=== PATIENT | male | born 1960 | race Two or more races ===

== ENCOUNTER 2017-02-08 18:10 | Emergency (ER) | payer SELFPAY ==
[2017-02-08 18:16] VITALS: BP 132/97; PULSE 82; TEMP 97.9; BMI 23.1
[2017-02-08] MEDS ORDERED: SODIUM CHLORIDE 1,000 ML IV STA (19:44)
[2017-02-08] MEDS ORDERED: FAMOTIDINE 20 MG/50 ML IVPB 50 ML IVPB ONE ×2 (19:44→20:17)
[2017-02-08] MEDS ORDERED: MAG HYDROX/AL HYDROX/SIMETH 30 ML UNIT-DOSE CUP PO ONE (19:46)
--- NOTE | 2017-02-08 19:52 | PDOC ---
Attending Attestation - Resident Resident Name: SonidoMina serna - ED Attending Attestation I have performed the following: I have examined & evaluated the patient, The case was reviewed & discussed with the resident, I agree w/resident's findings & plan, Exceptions are as noted - HPI HPI: 02/09/17 19:22 Pt c/o epigastric pain for several weeks. Pt states he has not had any relief with the current medication that he has currently been prescribed. H/o non- hodgkins lymphomas - Physicial Exam PE: 02/08/17 20:25 *Physical Exam General Appearance: Yes: Appropriately Dressed. No: Apparent Distress, Intoxicated HEENT: positive: EOMI, ANNA, Normal ENT Inspection, Normal Voice, TMs Normal, Pharynx Normal. negative: Pale Conjunctivae, Photophobia, Scleral Icterus (R), Scleral Icterus (L) Neck: positive: Trachea midline, Normal Thyroid, Supple. negative: Tender, Rigid, Carotid bruit, Stridor, Lymphadenopathy (R), Lymphadenopathy (L), Thyromegaly Respiratory/Chest: positive: Lungs Clear, Normal Breath Sounds. negative: Chest Tender, Respiratory Distress, Accessory Muscle Use, Labored Respiration, RES, Crackles, Rales, Rhonchi, Stridor, Wheezing, Dullness Cardiovascular: positive: Regular Rhythm, Regular Rate, S1, S2. negative: Edema , JVD, Murmur, Bradycardia, Tachycardia Vascular Pulses: Dorsalis-Pedis (R): 2+, Doralis-Pedis (L): 2+ Gastrointestinal/Abdominal: positive: Normal Bowel Sounds, Flat, Soft. negative : Tender, Organomegaly, Pulsatile Mass, Increased Bowel Sounds, Decreased BS, Distended, Guarding, Rebound, Hernia, Hepatomegaly, Spleenomegaly Lymphatic: negative: Adenopathy, Tenderness Musculoskeletal: positive: Normal Inspection. negative: CVA Tenderness, Decreased Range of Motion Extremity: positive: Normal Capillary Refill, Normal Inspection, Normal Range of Motion, Pelvis Stable. negative: Tender, Pedal Edema, Swelling, Erythema Integumentary: positive: Normal Color, Dry, Warm. 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 negative: EOM Palsy, Facial Droop, Sensory Deficit - Medical Decision Making 02/09/17 00:09 Pt and family would rather follow up with their pcp and Hem/Onc doc as out pt. Pt is stable. Pt afebrile. Will discharge Discharge Disposition - Diagnosis Abdominal pain Qualifiers: Abdominal location: epigastric Qualified Code(s): R10.13 - Epigastric pain - Discharge Dispostion Disposition: HOME Condition at time of disposition: Stable Admit: No - Prescriptions Prescriptions: Oxycodone HCl/Acetaminophen [Percocet 5-325 mg Tablet] 1 - 2 tab PO Q6H #20 tablet MDD 4 - Referrals Referrals: Bj Torres MD [Primary Care Provider] - - Patient Instructions Printed Discharge Instructions: DI for Abdominal Pain-Adult, Non-Hodgkin Lymphoma -- Child - Post Discharge Activity
[2017-02-08] MEDS ORDERED: MAG HYDROX/AL HYDROX/SIMETH 30 ML UNIT-DOSE CUP ONE (20:17)
--- NOTE | 2017-02-08 20:20 | PDOC ---
History of Present Illness - General Chief Complaint: Pain Stated Complaint: ABDOMINAL PAIN Time Seen by Provider: 02/08/17 19:30 History Source: Patient Exam Limitations: No Limitations - History of Present Illness Initial Comments: 02/08/17 20:13 Patient is a 56M with history of gastritis and DM (on metformin) here today complaining upper abdominal pain. The pain started 3 weeks ago and is radiating to the back. His primary care physician has tried protonix, omeprazole and tylenol, but he has had no relief for his symptoms. Because the pain didn't get better, he came into the emergency department today. He denies nausea, vomiting , fevers and chills. He denies drinking, smoking and other drugs. The pain is made worse with eating. Last bowel movement was this morning. He reports that when he eats he feels like something gets stuck and burps. Past History - Past Medical History Allergies/Adverse Reactions: Allergies Allergy/AdvReac Type Severity Reaction Status Date / Time No Known Allergies Allergy Verified 02/08/17 18:16 Home Medications: Ambulatory Orders Pantoprazole Sodium [Protonix -] 40 mg PO DAILY 02/08/17 Cancer: Yes (NONHODGEKINS LYMPHOMA) GI Disorders: Yes (GASTRITIS) - Psycho/Social/Smoking Cessation Hx Suicidal Ideation: No Smoking History: Never smoked Information on smoking cessation initiated: No Review of Systems - Review of Systems Constitutional: No: Chills, Diaphoresis, Fever, Weakness HEENTM: No: Eye Pain, Blurred Vision Respiratory: No: Cough, Shortness of Breath Cardiac (ROS): No: Chest Pain, Edema, Palpitations ABD/GI: No: Constipated, Diarrhea, Nausea, Vomiting : No: Burning, Dysuria Musculoskeletal: No: Muscle Pain, Muscle Weakness Integumentary: Yes: Pruritus, Rash Neurological: No: Headache, Tingling *Physical Exam - Vital Signs Last Vital Signs Temp Pulse Resp BP Pulse Ox 97.9 F 82 18 132/97 100 02/08/17 18:12 02/08/17 18:12 02/08/17 18:12 02/08/17 18:12 02/08/17 18:12 - Physical Exam Comments: 02/08/17 20:17 Gen: Well appearing, comfortable, well nourished CV: Regular rate and rhythm, no murmurs rubs or gallops Skin: Back has large, scaling rash. Abdomen: Maculopapular rash on abdomen, normal bowel sounds, nontender to palpation, no peritoneal signs Lungs: Clear to auscultation bilaterally, normal work of breathing Ext: 2+ pulses in both lower extremities, no edema HEENT: atraumatic normocephalic Neuro: Alert, oriented, no focal deficits ED Treatment Course - LABORATORY CBC & Chemistry Diagram: 02/08/17 20:00 02/08/17 20:00 - RADIOLOGY Radiology Studies Ordered: Category Date Time Status ABDOMEN & PELVIS CT WITH CONTR [CT] Stat CT Scan 02/08/17 19:47 Ordered Medical Decision Making - Medical Decision Making 02/08/17 20:20 56M with history of gastritis here today complaining of upper abdominal pain. Vital signs stable. Differential diagnosis includes, but is not limited to: gastritis, pancreatitis, and gastroparesis. Will send out labs, UA, and do CT. Maalox and IV pepcid given to help control possible gastritis. *DC/Admit/Observation/Transfer Diagnosis at time of Disposition: Abdominal pain Qualifiers: Abdominal location: epigastric Qualified Code(s): R10.13 - Epigastric pain - Attestations Physician Attestion: 02/08/17 22:27 I, Dr. Mina Brush, attest that this document has been prepared under my direction and personally reviewed by me in its entirety. I further attest, that it accurately reflects all work, treatment, procedures and medical decision -making performed by me.
[2017-02-08 20:21] LABS: BASOPHIL 0.7 % (0-2.0); EOSINOPHIL 2.5 % (0-4.5); MCH 28.3 pg (25.7-33.7); MCHC 33.1 g/dl (32.0-35.9); MEAN CELL VOLUME 85.4 fl (80-96); NEUTROPHILS 68.2 % (42.8-82.8); PLATELET COUNT 243 K/MM3 (134-434); RDW 14.1 % (11.9-15.9)
[2017-02-08 20:22] LABS: URINE APPEARANCE CLEAR; URINE BILIRUBIN NEGATIVE (NEGATIVE); URINE BLOOD 1+ (NEGATIVE); URINE COLOR YELLOW; URINE GLUCOSE (UA) NEGATIVE (NEGATIVE); URINE KETONE NEGATIVE (NEGATIVE); URINE LEUK ESTERASE NEGATIVE (NEGATIVE); URINE NITRITE NEGATIVE (NEGATIVE); URINE PROTEIN NEGATIVE (NEGATIVE); URINE UROBILINOGEN NEGATIVE mg/dL (0.2-1.0)
[2017-02-08 20:40] LABS: URINE MUCUS RARE; URINE RBC 1 /hpf (0-3)
[2017-02-08 21:20] LABS: ALBUMIN 3.6 g/dl (3.4-5.0); ANION GAP 9 (8-16); BILIRUBIN,TOTAL 0.5 mg/dL (0.2-1.0); CALCIUM 8.7 mg/dL (8.5-10.1); CO2 28 mmol/L (21-32); CREATININE 1.1 mg/dL (0.7-1.3); GLUCOSE,RANDOM 130 mg/dL (74-106); SGOT/AST 19 U/L (15-37); SGPT/ALT 18 U/L (12-78); TOT PROT 7.8 g/dl (6.4-8.2)
[2017-02-08 21:21] LABS: ALK PHOS 106 U/L (45-117)
[2017-02-08] MEDS ORDERED: HYDROmorphone HCL CARPU-JECT 1 MG/1 ML DISP.SYRIN IVPUSH ONE (21:35)
[2017-02-08] MEDS ORDERED: ONDANSETRON 4 MG/2 ML VIAL IVPUSH ONE (21:35)
[2017-02-08] MEDS ORDERED: HYDROmorphone HCL CARPU-JECT 1 MG/1 ML DISP.SYRIN ONE (22:13)
[2017-02-08] MEDS ORDERED: ONDANSETRON 4 MG/2 ML VIAL ONE (22:13)
--- NOTE | 2017-02-08 23:58 | HP ---
CHIEF COMPLAINT: PCP: HISTORY OF PRESENT ILLNESS: ER course was notable for: (1) (2) (3) Recent Travel: PAST MEDICAL HISTORY: PAST SURGICAL HISTORY: Social History: Smoking: Alcohol: Drugs: Family History: Allergies No Known Allergies Allergy (Verified 02/08/17 18:16) HOME MEDICATIONS: Home Medications Medication Instructions Recorded Pantoprazole Sodium [Protonix -] 40 mg PO DAILY 02/08/17 REVIEW OF SYSTEMS CONSTITUTIONAL: Absent: fever, chills, diaphoresis, generalized weakness, malaise, loss of appetite, weight change HEENT: Absent: rhinorrhea, nasal congestion, throat pain, throat swelling, difficulty swallowing, mouth swelling, ear pain, eye pain, visual changes CARDIOVASCULAR: Absent: chest pain, syncope, palpitations, irregular heart rate, lightheadedness , peripheral edema RESPIRATORY: Absent: cough, shortness of breath, dyspnea with exertion, orthopnea, wheezing, stridor, hemoptysis GASTROINTESTINAL: Absent: abdominal pain, abdominal distension, nausea, vomiting, diarrhea, constipation, melena, hematochezia GENITOURINARY: Absent: dysuria, frequency, urgency, hesitancy, hematuria, flank pain, genital pain MUSCULOSKELETAL: Absent: myalgia, arthralgia, joint swelling, back pain, neck pain SKIN: Absent: rash, itching, pallor HEMATOLOGIC/IMMUNOLOGIC: Absent: easy bleeding, easy bruising, lymphadenopathy, frequent infections ENDOCRINE: Absent: unexplained weight gain, unexplained weight loss, heat intolerance, cold intolerance NEUROLOGIC: Absent: headache, focal weakness or paresthesias, dizziness, unsteady gait, seizure, mental status changes, bladder or bowel incontinence PSYCHIATRIC: Absent: anxiety, depression, suicidal or homicidal ideation, hallucinations. PHYSICAL EXAMINATION Vital Signs - 24 hr 02/08/17 18:12 Temperature 97.9 F Pulse Rate 82 Respiratory 18 Rate Blood Pressure 132/97 O2 Sat by Pulse 100 Oximetry (%) GENERAL: Awake, alert, and fully oriented, in no acute distress. HEAD: Normal with no signs of trauma. EYES: Pupils equal, round and reactive to light, extraocular movements intact, sclera anicteric, conjunctiva clear. No lid lag. EARS, NOSE, THROAT: Ears normal, nares patent, oropharynx clear without exudates. Moist mucous membranes. NECK: Normal range of motion, supple without lymphadenopathy, JVD, or masses. LUNGS: Breath sounds equal, clear to auscultation bilaterally. No wheezes, and no crackles. No accessory muscle use. HEART: Regular rate and rhythm, normal S1 and S2 without murmur, rub or gallop. ABDOMEN: Soft, nontender, not distended, normoactive bowel sounds, no guarding, no rebound, no masses. No hepatomegaly or splenomegaly. MUSCULOSKELETAL: Normal range of motion at all joints. No bony deformities or tenderness. No CVA tenderness. UPPER EXTREMITIES: 2+ pulses, warm, well-perfused. No cyanosis. No clubbing. No peripheral edema. LOWER EXTREMITIES: 2+ pulses, warm, well-perfused. No calf tenderness. No peripheral edema. NEUROLOGICAL: Cranial nerves II-XII intact. Normal speech. Normal gait. PSYCHIATRIC: Cooperative. Good eye contact. Appropriate mood and affect. SKIN: Warm, dry, normal turgor, no rashes or lesions noted, normal capillary refill. Laboratory Results - last 24 hr 02/08/17 02/08/17 02/08/17 20:00 20:00 20:00 WBC 6.0 RBC 4.57 Hgb 12.9 Hct 39.0 MCV 85.4 MCH 28.3 MCHC 33.1 RDW 14.1 Plt Count 243 MPV 8.0 Neutrophils % 68.2 Lymphocytes % 20.3 Monocytes % 8.3 Eosinophils % 2.5 Basophils % 0.7 Sodium 136 Potassium 4.0 Chloride 99 Carbon Dioxide 28 Anion Gap 9 BUN 13 Creatinine 1.1 Creat Clearance w eGFR > 60 Random Glucose 130 H Calcium 8.7 Total Bilirubin 0.5 AST 19 ALT 18 Alkaline Phosphatase 106 Total Protein 7.8 Albumin 3.6 Lipase 483 H Urine Color Yellow Urine Appearance Clear Urine pH 6.0 Ur Specific [place] 1.020 Urine Protein Negative Urine Glucose (UA) Negative Urine Ketones Negative Urine Blood 1+ H Urine Nitrite Negative Urine Bilirubin Negative Urine Urobilinogen Negative Ur Leukocyte Esterase Negative Urine RBC 1 Urine WBC None Ur Epithelial Cells Rare Urine Mucus Rare ASSESSMENT/PLAN:
[2017-02-09] MEDS ORDERED: OXYCODONE/APAP 5/325MG COMBO TABLET PO ONE (00:08)
[2017-02-09] MEDS ORDERED: OXYCODONE/APAP 5/325MG COMBO TABLET ONE (00:16)
--- NOTE | 2017-02-09 12:47 | EKG ---
Test Reason : Blood Pressure : / mmHG Vent. Rate : 068 BPM Atrial Rate : 068 BPM P-R Int : 158 ms QRS Dur : 084 ms QT Int : 376 ms P-R-T Axes : 041 015 044 degrees QTc Int : 399 ms NORMAL SINUS RHYTHM NORMAL ECG NO PREVIOUS ECGS AVAILABLE Confirmed by JONG PAGE, HONG ([id number]) on 02/09/2017 12:46:52 PM Referred By: Confirmed By:HONG SUNSHINE MD
== END 2017-02-09 00:26 | disposition home or self-care (01) ==
LOC: JER 18:10 → JERBED 23:44 → UNDOADMIN 23:44 → JER 02-09 00:26
PROC: 3E033GC Introduction of Other Therapeutic Substance into Peripheral Vein, Percutaneous Approach (ICD-10-PCS; principal; 2017-02-08)
PROC: 3E033GC Introduction of Other Therapeutic Substance into Peripheral Vein, Percutaneous Approach (ICD-10-PCS; 2017-02-08)
PROC: 3E033NZ Introduction of Analgesics, Hypnotics, Sedatives into Peripheral Vein, Percutaneous Approach (ICD-10-PCS; 2017-02-08)
DX: K29.70 Gastritis, unspecified, without bleeding (principal); E11.9 Type 2 diabetes mellitus without complications; Z79.84 Long term (current) use of oral hypoglycemic drugs; Z85.72 Personal history of non-Hodgkin lymphomas
CPT/HCPCS: 36415; 74177-TC; 80053; 81003; 81015; 83615; 83690; 85025; 93005; 93010; 99283-25

== ENCOUNTER 2017-02-12 15:50 | Inpatient (IN) | payer OTHER ==
[2017-02-12] MEDS ORDERED: HYDROmorphone HCL CARPU-JECT 1 MG/1 ML DISP.SYRIN IVPUSH ONE (17:36)
--- NOTE | 2017-02-12 17:41 | PDOC ---
History of Present Illness - General Chief Complaint: Pain Stated Complaint: ABD PAIN Time Seen by Provider: 02/12/17 16:51 History Source: Patient, Family Exam Limitations: No Limitations - History of Present Illness Initial Comments: This is a 56 yo male with h/o non Hodgkin's lymphoma (in remission since 2003) and NIDDM (on metformin) who presents with one month of worsening abdominal pain. It is 8/10, sharp, diffuse, radiating to the back and spine, and worsens with eating. He was prescribed Percocet for this pain, which has been helping, and he had his last dose at about 2:30 pm. He notes recent decreased appetite and decreased PO intake, weight loss, and constipation. He denies any fever, chills, nausea, vomiting, diarrhea, dizziness, headache, vision changes, night sweats, numbness, tingling, or focal weakness. He was seen here in the ED on 02/08 and found to have diffuse peritoneal lymphadenitis on abdominal CT. He also had LD of 312 and lipase of 485, and was offered admission but opted to follow up with oncology as outpatient instead. He and his sister followed up with his primary doctor, Brian Adams, this morning and explain that they were told to come in for admission to the hospital for rapid oncology consultation, lymph node biopsy, and treatment. The patient's oncologist is Dr. Salvador, and Felix Davis is also on his team. Past History - Past Medical History Allergies/Adverse Reactions: Allergies Allergy/AdvReac Type Severity Reaction Status Date / Time No Known Allergies Allergy Verified 02/12/17 15:54 Home Medications: Ambulatory Orders Pantoprazole Sodium [Protonix -] 40 mg PO DAILY 02/08/17 Oxycodone HCl/Acetaminophen [Percocet 5-325 mg Tablet] 1 - 2 tab PO Q6H #20 tablet MDD 4 02/09/17 Metformin HCl [Metformin HCl ER] 500 mg PO DAILY 02/12/17 Cancer: Yes (NONHODGEKINS LYMPHOMA) GI Disorders: Yes (GASTRITIS) - Psycho/Social/Smoking Cessation Hx Anxiety: No Suicidal Ideation: No Smoking History: Never smoked Hx Alcohol Use: No Drug/Substance Use Hx: No Substance Use Type: None Review of Systems - Review of Systems Able to Perform ROS?: Yes Constitutional: Yes: Loss of Appetite, Unintentional Wgt. Loss. No: Chills, Fever, Night Sweats HEENTM: No: Nose Congestion, Throat Pain Respiratory: No: Cough, Shortness of Breath Cardiac (ROS): No: Chest Pain, Palpitations ABD/GI: Yes: Constipated, Other (abdominal pain). No: Diarrhea, Nausea, Vomiting : No: Burning, Dysuria Musculoskeletal: Yes: Back Pain. No: Neck Pain Integumentary: No: Bruising, Rash Neurological: No: Headache, Numbness, Tingling, Weakness, Dizziness Endocrine: Yes: Unexplained Weight Loss. No: Unexplained Weight Gain *Physical Exam - Vital Signs Last Vital Signs Temp Pulse Resp BP Pulse Ox 99.0 F 100 H 20 139/93 97 02/12/17 15:51 02/12/17 15:51 02/12/17 15:51 02/12/17 15:51 02/12/17 15:51 - Physical Exam General Appearance: Yes: Nourished, Mild Distress, Other (pleasant male appears a bit older than stated age, with dry skin on face and body stated to be chronic ) HEENT: positive: EOMI, Normal Voice, Hearing Grossly Normal. negative: Scleral Icterus (R), Scleral Icterus (L), Nasal Congestion Neck: positive: Trachea midline, Supple. negative: Tender, Rigid Respiratory/Chest: positive: Lungs Clear, Normal Breath Sounds. negative: Respiratory Distress, Crackles, Rhonchi, Stridor, Wheezing Cardiovascular: positive: Regular Rhythm, Regular Rate, JVD (mild). negative: Edema, Murmur Gastrointestinal/Abdominal: positive: Normal Bowel Sounds, Tender (minimally diffusely tender to palpation), Soft. negative: Organomegaly, Pulsatile Mass, Distended, Guarding, Rebound, Hernia, Mass Musculoskeletal: positive: Normal Inspection. negative: Decreased Range of Motion, Vertebral Tenderness Extremity: positive: Normal Capillary Refill, Normal Inspection, Normal Range of Motion. negative: Tender, Cyanosis, Swelling Integumentary: positive: Normal Color, Dry, Warm. 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 ED visit on 02/08/[address] abdomen showing intraabdominal lymphadenitis concerning for recurrence of NHL. Was going to be admitted for expedited management on 02/08 but Pt opted to try outpatient management with Onc. The quickest oncology appointment available was 02/28/17, so Pt saw his PCP Dr. Torres this AM. Dr. Torres recommended coming to the ED and admission with consultations with oncology and GI. Spoke with Dr. Torres who confirmed plan. He wants Dr. Salvador to consult for Oncology, Dr. Verdin to consult for GI. Meanwhile pain is controlled with Dilaudid, as this worked well during visit on 02/08/17. [facility] patient to Dr. Bobo. *DC/Admit/Observation/Transfer Diagnosis at time of Disposition: Lymphadenitis, mesenteric, acute Abdominal pain Qualifiers: Abdominal location: generalized Qualified Code(s): R10.84 - Generalized abdominal pain Lymphoma Qualifiers: Lymphoma type: non-Hodgkin Non-Hodgkin lymphoma type: unspecified type Lymphoma site: unspecified region Qualified Code(s): C85.90 - Non-Hodgkin lymphoma, unspecified, unspecified site - Discharge Dispostion Condition at time of disposition: Guarded Admit: Yes - Referrals Referrals: Bj Torres MD [Primary Care Provider] - - Attestations Physician Attestion: I, Dr. Shazia Dickinson, attest that this document has been prepared under my direction and personally reviewed by me in its entirety. I further attest, that it accurately reflects all work, treatment, procedures and medical decision -making performed by me.
[2017-02-12] MEDS ORDERED: HYDROmorphone HCL CARPU-JECT 1 MG/1 ML DISP.SYRIN ONE (17:45)
--- NOTE | 2017-02-12 18:38 | PDOC ---
Attending Attestation - Resident Resident Name: Shazia Dickinson - ED Attending Attestation I have performed the following: I have examined & evaluated the patient, The case was reviewed & discussed with the resident, I agree w/resident's findings & plan, Exceptions are as noted - HPI HPI: 02/12/17 18:37 Agree with the resident's HPI as documented in the electronic medical record. - Physicial Exam PE: 02/12/17 18:37 02/12/17 19:24 Agree with the resident's physical examination as documented in the electronic medical record. - Medical Decision Making 02/12/17 19:24 48-year-old male with history of non-Hodgkin's lymphoma who presents to the emergency department for the second time in one week with complaints of abdominal pain; he was worked up last week with a CT scan that shows diffuse lymphadenopathy in the abdomen. The plan is to admit the patient for pain management and further workup including biopsy. This has been discussed with his primary care physician.
--- NOTE | 2017-02-12 21:49 | HP ---
CHIEF COMPLAINT: PCP: HISTORY OF PRESENT ILLNESS: ER course was notable for: (1) (2) (3) Recent Travel: PAST MEDICAL HISTORY: PAST SURGICAL HISTORY: Social History: Smoking: Alcohol: Drugs: Family History: Allergies No Known Allergies Allergy (Verified 02/12/17 15:54) HOME MEDICATIONS: Home Medications Medication Instructions Recorded Pantoprazole Sodium [Protonix -] 40 mg PO DAILY 02/08/17 Oxycodone HCl/Acetaminophen 1 - 2 tab PO Q6H #20 tablet MDD 4 02/09/17 [Percocet 5-325 mg Tablet] Metformin HCl [Metformin HCl ER] 500 mg PO DAILY 02/12/17 REVIEW OF SYSTEMS CONSTITUTIONAL: Absent: fever, chills, diaphoresis, generalized weakness, malaise, loss of appetite, weight change HEENT: Absent: rhinorrhea, nasal congestion, throat pain, throat swelling, difficulty swallowing, mouth swelling, ear pain, eye pain, visual changes CARDIOVASCULAR: Absent: chest pain, syncope, palpitations, irregular heart rate, lightheadedness , peripheral edema RESPIRATORY: Absent: cough, shortness of breath, dyspnea with exertion, orthopnea, wheezing, stridor, hemoptysis GASTROINTESTINAL: Absent: abdominal pain, abdominal distension, nausea, vomiting, diarrhea, constipation, melena, hematochezia GENITOURINARY: Absent: dysuria, frequency, urgency, hesitancy, hematuria, flank pain, genital pain MUSCULOSKELETAL: Absent: myalgia, arthralgia, joint swelling, back pain, neck pain SKIN: Absent: rash, itching, pallor HEMATOLOGIC/IMMUNOLOGIC: Absent: easy bleeding, easy bruising, lymphadenopathy, frequent infections ENDOCRINE: Absent: unexplained weight gain, unexplained weight loss, heat intolerance, cold intolerance NEUROLOGIC: Absent: headache, focal weakness or paresthesias, dizziness, unsteady gait, seizure, mental status changes, bladder or bowel incontinence PSYCHIATRIC: Absent: anxiety, depression, suicidal or homicidal ideation, hallucinations. PHYSICAL EXAMINATION Vital Signs - 24 hr 02/12/17 15:51 Temperature 99.0 F Pulse Rate 100 H Respiratory 20 Rate Blood Pressure 139/93 O2 Sat by Pulse 97 Oximetry (%) GENERAL: Awake, alert, and fully oriented, in no acute distress. HEAD: Normal with no signs of trauma. EYES: Pupils equal, round and reactive to light, extraocular movements intact, sclera anicteric, conjunctiva clear. No lid lag. EARS, NOSE, THROAT: Ears normal, nares patent, oropharynx clear without exudates. Moist mucous membranes. NECK: Normal range of motion, supple without lymphadenopathy, JVD, or masses. LUNGS: Breath sounds equal, clear to auscultation bilaterally. No wheezes, and no crackles. No accessory muscle use. HEART: Regular rate and rhythm, normal S1 and S2 without murmur, rub or gallop. ABDOMEN: Soft, nontender, not distended, normoactive bowel sounds, no guarding, no rebound, no masses. No hepatomegaly or splenomegaly. MUSCULOSKELETAL: Normal range of motion at all joints. No bony deformities or tenderness. No CVA tenderness. UPPER EXTREMITIES: 2+ pulses, warm, well-perfused. No cyanosis. No clubbing. No peripheral edema. LOWER EXTREMITIES: 2+ pulses, warm, well-perfused. No calf tenderness. No peripheral edema. NEUROLOGICAL: Cranial nerves II-XII intact. Normal speech. Normal gait. PSYCHIATRIC: Cooperative. Good eye contact. Appropriate mood and affect. SKIN: Warm, dry, normal turgor, no rashes or lesions noted, normal capillary refill. ASSESSMENT/PLAN:
[2017-02-12] MEDS ORDERED: PANTOPRAZOLE 40 MG TABLET (FP) ONE (22:13)
[2017-02-12] MEDS: PANTOPRAZOLE 40 MG TABLET (FP) PO SCH (22:16)
--- NOTE | 2017-02-12 22:21 | HP ---
CHIEF COMPLAINT: abdominal pain PCP: Dr. Brian Adams HISTORY OF PRESENT ILLNESS: 56 y/o M with PMH nonhodgkin's lymphoma (treated with Cyclophosphamide, Vincristine in remission since 2003), NIDDM on metformin, gastritis (on Ranitidine, Omeprazole, Prevacid), who presented to the ED with diffuse abdominal pain. The pain is 8/10, sharp, diffuse, with radiation to the back and spine. The pain began several weeks ago and the patient has been in and out of Dr. Torres's office and was given percocet, protonix, and metformin). Recently, the patient was admitted here on 02/08 for similar complaint. A CT abdomen at that time revealed diffuse peritoneal lymphadenitis. Labs at that time were significant for LD of 312, Lipase of 485. The patient was given an appointment to see the oncologist in several weeks, but the patient's pain has been uncontrolled. So the patient went to the PCPs office who recommended coming to the ED to be admitted and start the oncology workup as inpatient. ER course was notable for: (1)Labs not drawn b/c pt just had labs drawn recently (2)Dilaudid (3) Recent Travel: From [place] 4 months ago PAST MEDICAL HISTORY: nonhodgkin's lymphoma (treated with Cyclophosphamide, Vincristine in remission since 2003), NIDDM on metformin, gastritis (on Ranitidine, Omeprazole, Prevacid) PAST SURGICAL HISTORY: Social History: Smoking:Denies Alcohol:Denies Drugs: Denies Family History: Allergies No Known Allergies Allergy (Verified 02/12/17 15:54) HOME MEDICATIONS: Home Medications Medication Instructions Recorded Pantoprazole Sodium [Protonix -] 40 mg PO DAILY 02/08/17 Oxycodone HCl/Acetaminophen 1 - 2 tab PO Q6H #20 tablet MDD 4 02/09/17 [Percocet 5-325 mg Tablet] Metformin HCl [Metformin HCl ER] 500 mg PO DAILY 02/12/17 REVIEW OF SYSTEMS CONSTITUTIONAL: Absent: fever, chills, diaphoresis, generalized weakness, malaise, loss of appetite, weight change HEENT: Absent: rhinorrhea, nasal congestion, throat pain, throat swelling, difficulty swallowing, mouth swelling, ear pain, eye pain, visual changes CARDIOVASCULAR: Absent: chest pain, syncope, palpitations, irregular heart rate, lightheadedness , peripheral edema RESPIRATORY: Absent: cough, shortness of breath, dyspnea with exertion, orthopnea, wheezing, stridor, hemoptysis GASTROINTESTINAL: Absent: abdominal pain, abdominal distension, nausea, vomiting, diarrhea, constipation, melena, hematochezia GENITOURINARY: Absent: dysuria, frequency, urgency, hesitancy, hematuria, flank pain, genital pain MUSCULOSKELETAL: Absent: myalgia, arthralgia, joint swelling, back pain, neck pain SKIN: lifelong diffuse scaly rash, diffuse erythematous patches for several years Absent: , itching, pallor HEMATOLOGIC/IMMUNOLOGIC: Absent: easy bleeding, easy bruising, lymphadenopathy, frequent infections ENDOCRINE: Absent: unexplained weight gain, unexplained weight loss, heat intolerance, cold intolerance NEUROLOGIC: Absent: headache, focal weakness or paresthesias, dizziness, unsteady gait, seizure, mental status changes, bladder or bowel incontinence PSYCHIATRIC: Absent: anxiety, depression, suicidal or homicidal ideation, hallucinations. PHYSICAL EXAMINATION Vital Signs - 24 hr 02/12/17 15:51 Temperature 99.0 F Pulse Rate 100 H Respiratory 20 Rate Blood Pressure 139/93 O2 Sat by Pulse 97 Oximetry (%) GENERAL: Awake, alert, and fully oriented, in no acute distress. HEAD: Normal with no signs of trauma. EYES: Pupils equal, round and reactive to light, extraocular movements intact, sclera anicteric, conjunctiva clear. No lid lag. EARS, NOSE, THROAT: Ears normal, nares patent, oropharynx clear without exudates. Moist mucous membranes. NECK: Normal range of motion, supple without lymphadenopathy, JVD, or masses. LUNGS: Breath sounds equal, clear to auscultation bilaterally. No wheezes, and no crackles. No accessory muscle use. HEART: Regular rate and rhythm, normal S1 and S2 without murmur, rub or gallop. ABDOMEN: Soft, nontender, not distended, normoactive bowel sounds, no guarding, no rebound, no masses. No hepatomegaly or splenomegaly. MUSCULOSKELETAL: Normal range of motion at all joints. No bony deformities or tenderness. No CVA tenderness. UPPER EXTREMITIES: 2+ pulses, warm, well-perfused. No cyanosis. No clubbing. No peripheral edema. LOWER EXTREMITIES: 2+ pulses, warm, well-perfused. No calf tenderness. No peripheral edema. NEUROLOGICAL: Cranial nerves II-XII intact. Normal speech. Normal gait. PSYCHIATRIC: Cooperative. Good eye contact. Appropriate mood and affect. SKIN: diffuse scaly rash, diffuse erythematous patches, Warm, dry, normal turgor , normal capillary refill. ASSESSMENT/PLAN: 56y/o M with PMHx PMH nonhodgkin's lymphoma (treated with Cyclophosphamide, Vincristine in remission since 2003), NIDDM on metformin, gastritis (on Ranitidine, Omeprazole, Prevacid), who presented to the ED with diffuse abdominal pain. Pt has recent CT abdomen showing diffuse peritoneal lymphadenitis. #Abdominal pain -likely 2/2 diffuse peritoneal lymphadenitis -Morphine 1mg Q4H -CBC, CMP, Lipase, UA #Gastritis -Protonix #DM -Novolog ISS #FEN -not on fluids -lytes wnl -diabetic diet #PPX -heparin SubQ -Protonix #Dispo -Admit to med/surg Please call [facility] to confirm home meds Pablito Joyner MD PGY-1 Visit type - Emergency Visit Emergency Visit: No - New Patient This patient is new to me today: No - Critical Care Critical Care patient: No
[2017-02-12] MEDS: INSULIN SLIDING SCALE (NOVOLOG) 1 VIAL SQ SCH (22:28)
[2017-02-12] MEDS ORDERED: HEPARIN NA (PORCINE) 5,000 UNITS/ML 1ML VIAL ONE (22:33)
[2017-02-12] MEDS: HEPARIN NA (PORCINE) 5,000 UNITS/ML 1ML VIAL SQ SCH (22:44)
[2017-02-12] MEDS ORDERED: morphine CARPU-JECT 4 MG/1 ML DISP.SYRIN ONE (23:00)
[2017-02-12] MEDS: morphine CARPU-JECT 4 MG/1 ML DISP.SYRIN IVPUSH PRN (23:05)
--- NOTE | 2017-02-12 23:12 | PN ---
Teaching Attending Note Name of Resident: Mohini Guerrier ATTENDING PHYSICIAN STATEMENT I saw and evaluated the patient. I reviewed the resident's note and discussed the case with the resident. I agree with the resident's findings and plan as documented. 56 yrs old man with h/o T2DM, Non Hodgkin Lymphoma in remission since 2003, BIB family for evaluation of gradually worsening abdominal pain, with poor appetite and nausea for past 2 wks, patient visited ED on 02/08/2017b with similar complaint w/u shows elevated Lipase, CT abd shows extensive abdominal Lymphadenopathy, patient decided to go home to F/U with his Oncologist as out patient, abdominal pain worsened so today visited his PMD office and PMD recommended hospitalization for evaluation. Impression: 1.Abdominal Lymphadenopathy: known case of Non Hodgkin Lymphoma in remission since 2003, F/U Oncology recommendations. 2.Abdominal pain: most likely due to recurrence of Lymphoma, need oncology evaluation, meantime pain management, Morphine with PRN Zofran for nausea, Diet as tolerates, Oncology evaluation. 3. Acute Pancreatitis: Secondary to extensive mets F/U Serial Lipase, frequent abd exam, GI consult Diet as tolerates 4. T2DM: F/U ACCU check q AC and bed luca with correction dose Novolog F/U HBA1C , Hold Metformin. F/U CBC, CMP, Lipase Rest cont current management. Plan discussed with the Resident and Public Speaking Coach.
[2017-02-12 23:50] LABS: BASOPHIL 0.6 % (0-2.0); EOSINOPHIL 1.8 % (0-4.5); MCH 28.5 pg (25.7-33.7); MCHC 33.5 g/dl (32.0-35.9); MEAN CELL VOLUME 84.9 fl (80-96); PLATELET COUNT 210 K/MM3 (134-434); RDW 13.8 % (11.9-15.9); WHITE BLOOD COUNT 5.7 K/mm3 (4.0-10.0)
[2017-02-13 00:17] LABS: ALBUMIN 3.4 g/dl (3.4-5.0); ALK PHOS 108 U/L (45-117); ANION GAP 11 (8-16); BILIRUBIN,TOTAL 0.6 mg/dL (0.2-1.0); CALCIUM 8.4 mg/dL (8.5-10.1); CO2 30 mmol/L (21-32); CREATININE 1.1 mg/dL (0.7-1.3); GLUCOSE,RANDOM 127 mg/dL (74-106); SGOT/AST 23 U/L (15-37); SGPT/ALT 19 U/L (12-78); TOT PROT 7.2 g/dl (6.4-8.2)
[2017-02-13 00:39] VITALS: BMI 22.4
[2017-02-13] MEDS: morphine CARPU-JECT 4 MG/1 ML DISP.SYRIN IVPUSH PRN ×2 (03:01→10:25)
[2017-02-13] MEDS ORDERED: morphine CARPU-JECT 2 MG/1 ML DISP.SYRIN IVPUSH ONE (04:29)
[2017-02-13] MEDS: INSULIN SLIDING SCALE (NOVOLOG) 1 VIAL SQ SCH ×3 (07:01→18:08)
[2017-02-13] MEDS ORDERED: INSULIN (NOVOLOG) ASPART 100 UNITS/ML 10ML VIAL ONE (07:04)
[2017-02-13 07:27] LABS: BASOPHIL 0.3 % (0-2.0); EOSINOPHIL 0.4 % (0-4.5); MCH 28.6 pg (25.7-33.7); MCHC 33.9 g/dl (32.0-35.9); MEAN CELL VOLUME 84.3 fl (80-96); MEAN PLT VOLUME 7.6 fl (7.5-11.1); NEUTROPHILS 74.4 % (42.8-82.8); PLATELET COUNT 193 K/MM3 (134-434); RDW 13.8 % (11.9-15.9); WHITE BLOOD COUNT 5.6 K/mm3 (4.0-10.0)
[2017-02-13] MEDS: SODIUM CHLORIDE 1,000 ML IV SCH (08:00)
[2017-02-13 08:02] LABS: ALBUMIN 3.2 g/dl (3.4-5.0); ANION GAP 8 (8-16); CALCIUM 8.6 mg/dL (8.5-10.1); CO2 32 mmol/L (21-32); CREATININE 0.9 mg/dL (0.7-1.3); GLUCOSE,RANDOM 180 mg/dL (74-106); SGOT/AST 23 U/L (15-37); SGPT/ALT 19 U/L (12-78)
[2017-02-13 08:05] LABS: ALK PHOS 105 U/L (45-117); BILIRUBIN,TOTAL 0.8 mg/dL (0.2-1.0); TOT PROT 7.1 g/dl (6.4-8.2)
--- NOTE | 2017-02-13 10:20 | CONSULT ---
Consult Consult Specialty:: Oncology Reason for Consultation:: New lymphadenopathy in a patient with previous NHL - History of Present Illness Chief Complaint: ABDOMINAL PAIN History of Present Illness: is a 56 y/o M with PMHx of NHL treated in 2003. Patient presented with abdominal pain and CT scan of the abdomen/pelvis performed on 02/08/17 showed new intra-abdominal and retroperitoneal LND . Per history obtained from patient and his family (sister and son) at bedside, he was diagnosed with NHL in 2003 in [facility]. He received 6 cycles of CHOP chemotherapy and his cancer was noted to be in remission. They have medical records stating the same. For the past month, patient has been having severe abdominal pain radiating to the back which he describes as an 8-10/10 pain. He is unable to sleep at night due to gnawing pain. He denies recent weight loss, palpable LND, nightsweats etc. He went to his PCP as an outpatient and was given pain meds but nothing has helped his pain so far. - History Source History Provided By: Patient, Family Member Limitations to Obtaining History: No Limitations - Alcohol/Substance Use Hx Alcohol Use: No - Smoking History Smoking history: Never smoked Home Medications - Allergies Allergies/Adverse Reactions: Allergies Allergy/AdvReac Type Severity Reaction Status Date / Time No Known Allergies Allergy Verified 02/12/17 15:54 - Home Medications Home Medications: Ambulatory Orders Pantoprazole Sodium [Protonix -] 40 mg PO DAILY 02/08/17 Oxycodone HCl/Acetaminophen [Percocet 5-325 mg Tablet] 1 - 2 tab PO Q6H #20 tablet MDD 4 02/09/17 Metformin HCl [Metformin HCl ER] 500 mg PO DAILY 02/12/17 Review of Systems - Review of Systems Gastrointestinal: reports: Abdominal Pain Physical Exam Vital Signs: Vital Signs Temperature 98.8 F 02/13/17 04:00 Pulse Rate 68 02/13/17 04:00 Respiratory Rate 20 02/13/17 04:00 Blood Pressure 131/85 02/13/17 04:00 O2 Sat by Pulse Oximetry (%) 98 02/12/17 23:45 Labs: CBC, BMP 02/13/17 06:00 02/13/17 06:00 Assessment/Plan A/P : 56 Y/O male with Hx of NHL treated previously with CHOP in 2003 and new intra- abdominal/retroperitoneal LND 1.Lymphoma work-up -findings are concerning for recurrence NHL, recommend IR guided lymph node biopsy to establish diagnosis -recommend obtaining CT chest with and without contrast and bone marrow biopsy during the week for complete staging -please check Hep BSAg, HepBcab, Hep C ab, HIV Ag study -recheck LDH, uric acid 2.Pain control -patient is having very poor control of pain with only oral pain meds and says even after taking his meds pain is 8/10 -recommend starting fentanyl patch 25 mcg/72 hrs and oxycodone 10 mg q8 h for breakthrough pain -good bowel regimen to prevent constipation- miralax/lactulose Will continue to follow.
[2017-02-13] MEDS: PANTOPRAZOLE 40 MG TABLET (FP) PO SCH (10:24)
[2017-02-13] MEDS: HEPARIN NA (PORCINE) 5,000 UNITS/ML 1ML VIAL SQ SCH ×3 (10:24→20:59)
[2017-02-13] MEDS ORDERED: FENTANYL PATCH WASTE TD PRN (12:42)
[2017-02-13] MEDS ORDERED: fentaNYL 25mcg/hr PATCH.TD72 TD SCH (12:45)
--- NOTE | 2017-02-13 13:06 | PN ---
Progress Note (short form) - Note Progress Note: Subjective: no fever .has pain in abd . constipation Objective: Vital Signs: Last Vital Signs Temp Pulse Resp BP Pulse Ox 98.9 F 79 20 127/73 98 02/13/17 10:00 02/13/17 10:00 02/13/17 10:00 02/13/17 10:00 02/12/17 23:45 Laboratory Results - last 24 hr 02/12/17 02/12/17 02/12/17 22:05 22:05 22:25 WBC 5.7 RBC 4.54 Hgb 12.9 Hct 38.5 MCV 84.9 MCH 28.5 MCHC 33.5 RDW 13.8 Plt Count 210 MPV 8.0 Neutrophils % 70.0 Lymphocytes % 17.0 Monocytes % 10.6 H Eosinophils % 1.8 Basophils % 0.6 PTT (Actin FS) Sodium 137 Potassium 4.1 Chloride 96 L Carbon Dioxide 30 Anion Gap 11 BUN 10 D Creatinine 1.1 Creat Clearance w eGFR > 60 POC Glucometer [phone] Random Glucose 127 H Calcium 8.4 L Total Bilirubin 0.6 AST 23 D ALT 19 Alkaline Phosphatase 108 Total Protein 7.2 Albumin 3.4 Lipase 02/13/17 02/13/17 02/13/17 06:00 06:00 06:00 WBC 5.6 RBC 4.61 Hgb 13.2 Hct 38.8 MCV 84.3 MCH 28.6 MCHC 33.9 RDW 13.8 Plt Count 193 MPV 7.6 Neutrophils % 74.4 Lymphocytes % 14.4 Monocytes % 10.5 H Eosinophils % 0.4 Basophils % 0.3 PTT (Actin FS) 35.1 H Sodium 134 L Potassium 4.4 Chloride 94 L Carbon Dioxide 32 Anion Gap 8 BUN 12 Creatinine 0.9 Creat Clearance w eGFR > 60 POC Glucometer Random Glucose 180 H D Calcium 8.6 Total Bilirubin 0.8 D AST 23 ALT 19 Alkaline Phosphatase 105 Total Protein 7.1 Albumin 3.2 L Lipase 195 02/13/17 02/13/17 06:59 11:30 WBC RBC Hgb Hct MCV MCH MCHC RDW Plt Count MPV Neutrophils % Lymphocytes % Monocytes % Eosinophils % Basophils % PTT (Actin FS) Sodium Potassium Chloride Carbon Dioxide Anion Gap BUN Creatinine Creat Clearance w eGFR POC Glucometer 161 132 Random Glucose Calcium Total Bilirubin AST ALT Alkaline Phosphatase Total Protein Albumin Lipase Physical Exam: NAD , AAOx3 CV : RRR Lung s: CATB ext : No edema or erythema Abd :soft, NT, ND , NL BS no LAP in neck , groins or axillae. Skin: dry scaly skin with erythematous patches. bandar on trunk Assessment/Plan: 56 y/o man with h/o NHL, s/p chemo in 2003 , now in remision and MM II , who rpesneted with abd pain . 1- Abd pain , likely due to LAP in abd which could be due recurrent lymphoma - appreciate heme consult . - add fentanyl patch and oxycodone 2- Possible recurrence of NHL. - consult lIR for Bx . - CT of chest - hep B serology - HIV test ( consent obtained ) 3- DM II: on a combination pill at home ( Metformin /? ) . daughter will confirm tomorrow - SSi here 4- COnstipation : miralax , colace a, and supp DVT px. daughter to confirm DM tomorrow Visit type - Emergency Visit Emergency Visit: Yes ED Registration Date: 02/12/17 Care time: The patient presented to the Emergency Department on the above date and was hospitalized for further evaluation of their emergent condition. - New Patient This patient is new to me today: Yes Date on this admission: 02/13/17 - Critical Care Critical Care patient: No
[2017-02-13] MEDS ORDERED: BISACODYL 10 MG SUPP.RECT RC ONE (13:15)
[2017-02-13] MEDS: oxyCODONE HCL 5 MG TABLET PO PRN (13:30)
[2017-02-13] MEDS: DOCUSATE SODIUM 100 MG CAPSULE (FP) PO PRN (13:34)
[2017-02-13 15:51] LABS: HIV 1 & 2 AB NEGATIVE; HIV 1 AGp24 NEGATIVE
[2017-02-13] MEDS: POLYETHYLENE GLYCOL 3350 119 GM BTL PO SCH (16:20)
--- NOTE | 2017-02-13 17:32 | EKG ---
Test Reason : Blood Pressure : / mmHG Vent. Rate : 072 BPM Atrial Rate : 072 BPM P-R Int : 158 ms QRS Dur : 084 ms QT Int : 362 ms P-R-T Axes : 036 019 059 degrees QTc Int : 396 ms NORMAL SINUS RHYTHM NORMAL ECG WHEN COMPARED WITH ECG OF 08-FEB-2017 19:45, NO SIGNIFICANT CHANGE WAS FOUND Confirmed by LOUISA PHILLIPS MD ([id number]) on 02/13/2017 5:31:46 PM Referred By: Confirmed By:LOUISA PHILLIPS MD
[2017-02-13] MEDS ORDERED: ONDANSETRON 4 MG/2 ML VIAL IVPUSH ONE (20:53)
[2017-02-14] MEDS ORDERED: ONDANSETRON 4 MG/2 ML VIAL IVPUSH ONE (01:25)
[2017-02-14] MEDS ORDERED: METOCLOPRAMIDE HCL INJECTION 10 MG/2 ML VIAL IVPUSH ONE ×2 (01:27→06:00)
[2017-02-14] MEDS: SODIUM CHLORIDE 1,000 ML IV SCH ×3 (01:37→22:22)
[2017-02-14] MEDS: HEPARIN NA (PORCINE) 5,000 UNITS/ML 1ML VIAL SQ SCH ×3 (05:18→22:12)
[2017-02-14] MEDS: INSULIN SLIDING SCALE (NOVOLOG) 1 VIAL SQ SCH ×3 (06:09→17:11)
[2017-02-14 08:08] LABS: BASOPHIL 0.4 % (0-2.0); EOSINOPHIL 0.2 % (0-4.5); MCH 28.9 pg (25.7-33.7); MCHC 34.2 g/dl (32.0-35.9); MEAN CELL VOLUME 84.6 fl (80-96); MEAN PLT VOLUME 7.3 fl (7.5-11.1); NEUTROPHILS 74.8 % (42.8-82.8); PLATELET COUNT 199 K/MM3 (134-434); RDW 13.9 % (11.9-15.9); WHITE BLOOD COUNT 5.3 K/mm3 (4.0-10.0)
[2017-02-14 08:21] LABS: INR 1.2 (0.82-1.09); PROTHROMBIN TIME (PATIENT) 13.3 SEC (9.98-11.88)
[2017-02-14 08:24] LABS: ACTIVATED PTT 32.4 SECONDS (26.9-34.4)
[2017-02-14 08:35] LABS: AMYLASE 45 U/L (25-115); ANION GAP 9 (8-16); CALCIUM 8.5 mg/dL (8.5-10.1); CO2 31 mmol/L (21-32); CREATININE 0.8 mg/dL (0.7-1.3); GLUCOSE,RANDOM 162 mg/dL (74-106)
[2017-02-14] MEDS: POLYETHYLENE GLYCOL 3350 119 GM BTL PO SCH (09:10)
[2017-02-14] MEDS: PANTOPRAZOLE 40 MG TABLET (FP) PO SCH (09:13)
[2017-02-14] MEDS ORDERED: POLYETHYLENE GLYCOL 3350 119 GM BTL PO SCH (10:00)
[2017-02-14] MEDS: oxyCODONE HCL 5 MG TABLET PO PRN ×3 (12:30→22:21)
--- NOTE | 2017-02-14 17:27 | PN ---
Progress Note (short form) - Note Progress Note: Patient seen and examined. Sister ( a RN) is at his bedside, who was our machine driller. His main complain is a constipation today. continues to have poor appetite Is awaiting Lymph node biopsy. Pain much better controlled. O/E In NAD Could not appreciate any LAD in the neck/axillary region Abdomen: No organomegaly noted Cor: RRR Lungs:CTA b/l LE: No swelling noted. Last Vital Signs Temp Pulse Resp BP Pulse Ox 98.7 F 81 18 167/100 95 02/14/17 14:58 02/14/17 16:08 02/14/17 16:08 02/14/17 16:08 02/14/17 16:08 CBC, BMP 02/14/17 06:40 02/14/17 06:40 Current Medications Generic Name Dose Route Start Last Admin Trade Name Freq PRN Reason Stop Dose Admin Docusate Sodium 100 mg 02/13/17 12:42 02/13/17 13:34 Colace - PO 100 mg BID PRN Administration CONSTIPATION Fentanyl 1 patch 02/13/17 12:45 02/13/17 13:32 Duragesic 25mcg Patch - TD 02/20/17 12:43 1 patch Q72H [facility] Administration Heparin Sodium (Porcine) 5,000 unit 02/13/17 14:00 02/14/17 14:10 Heparin - SQ Not Given TID [facility] Sodium Chloride 1,000 mls @ 83 mls/hr 02/13/17 07:30 02/14/17 09:14 Normal Saline - IV Not Given ASDIR [facility] Insulin Aspart 1 vial 02/13/17 16:30 02/14/17 17:11 Novolog Vial Sliding Scale - SQ Not Given TIDAC [facility] Protocol Miscellaneous 1 each 02/13/17 12:42 Duragesic Patch Waste TD PRN PRN PAIN Oxycodone HCl 10 mg 02/13/17 12:43 02/14/17 17:07 Roxicodone - PO 10 mg Q4H PRN Administration PAIN Pantoprazole Sodium 40 mg 02/12/17 22:00 02/14/17 09:13 Protonix - PO 40 mg DAILY [facility] Administration Polyethylene Glycol 17 gm 02/13/17 16:15 02/14/17 09:10 Miralax (For Daily Use) - PO Not Given DAILY [facility] 56 Y/O male with Hx of NHL treated previously with CHOP in 2003 and new intra- abdominal/retroperitoneal LND Likely a recurrence of his past Lymphoma or a new lymphoma, very less likely other malignancies. -IR guided biopsy today -Hep panel pending -HCV ab added -No evidence of Tumor lysis -Order TTE ( pre-chemo) -CBC tomorrow -CT c/a/p reviewed -BM biopsy as an OP once diagnosis confirmed. -If pain is well controlled and no post biopsy complications ,once echo done , he could be discharged from Oncology stand point, with close out patient follow- up in our office. -the above is explained to the sister at bedside. will follow through the course.
--- NOTE | 2017-02-14 17:50 | PN ---
Physical Exam: SUBJECTIVE: Patient seen and examined at bedside. Pt has no complaints at this time. Pt had nausea and vomiting overnight. Pt denies larson, cp, sob, abd pain, dysuria, diarrhea, fever, chills. OBJECTIVE: Vital Signs Period Temp Pulse Resp BP Sys/Hutchison Pulse Ox Last 24 Hr 98.3 F-99.6 F 69-84 11-20 112-167/53-100 95-96 GENERAL: The patient is awake, alert, and fully oriented, in no acute distress. HEAD: Normal with no signs of trauma. EYES: PERRL, extraocular movements intact, sclera anicteric, conjunctiva clear. No ptosis. ENT: Ears normal, nares patent, oropharynx clear without exudates, moist mucous membranes. NECK: Trachea midline, full range of motion, supple. LUNGS: Breath sounds equal, clear to auscultation bilaterally, no wheezes, no crackles, no accessory muscle use. HEART: Regular rate and rhythm, normal S1, S2 without murmur, rub or gallop. ABDOMEN: Soft, nontender, nondistended, normoactive bowel sounds, no guarding, no rebound, no hepatosplenomegaly, no masses. EXTREMITIES: 2+ pulses, warm, well-perfused, no edema. NEUROLOGICAL: Cranial nerves II through XII grossly intact. Normal speech, gait not observed. PSYCH: Normal mood, normal affect. SKIN: Diffuse scaly rash and diffuse erythematous rash noted. Warm, dry, normal turgor no lesions noted Laboratory Results - last 24 hr 02/13/17 02/14/17 02/14/17 17:50 05:56 06:40 WBC RBC Hgb Hct MCV MCH MCHC RDW Plt Count MPV Neutrophils % Lymphocytes % Monocytes % Eosinophils % Basophils % INR 1.20 H PTT (Actin FS) 32.4 Sodium Potassium Chloride Carbon Dioxide Anion Gap BUN Creatinine POC Glucometer 194 133 Random Glucose Calcium Total Amylase 02/14/17 02/14/17 02/14/17 06:40 06:40 11:50 WBC 5.3 RBC 4.38 Hgb 12.7 Hct 37.1 MCV 84.6 MCH 28.9 MCHC 34.2 RDW 13.9 Plt Count 199 MPV 7.3 L Neutrophils % 74.8 Lymphocytes % 11.9 Monocytes % 12.7 H Eosinophils % 0.2 Basophils % 0.4 INR PTT (Actin FS) Sodium 136 Potassium 4.3 Chloride 96 L Carbon Dioxide 31 Anion Gap 9 BUN 16 D Creatinine 0.8 POC Glucometer 123 Random Glucose 162 H Calcium 8.5 Total Amylase 45 02/14/17 16:36 WBC RBC Hgb Hct MCV MCH MCHC RDW Plt Count MPV Neutrophils % Lymphocytes % Monocytes % Eosinophils % Basophils % INR PTT (Actin FS) Sodium Potassium Chloride Carbon Dioxide Anion Gap BUN Creatinine POC Glucometer 101 Random Glucose Calcium Total Amylase Active Medications Generic Name Dose Route Start Last Admin Trade Name Freq PRN Reason Stop Dose Admin Docusate Sodium 100 mg 02/13/17 12:42 02/13/17 13:34 Colace - PO 100 mg BID PRN Administration CONSTIPATION Fentanyl 1 patch 02/13/17 12:45 02/13/17 13:32 Duragesic 25mcg Patch - TD 02/20/17 12:43 1 patch Q72H [facility] Administration Heparin Sodium (Porcine) 5,000 unit 02/13/17 14:00 02/14/17 14:10 Heparin - SQ Not Given TID [facility] Sodium Chloride 1,000 mls @ 83 mls/hr 02/13/17 07:30 02/14/17 09:14 Normal Saline - IV Not Given ASDIR [facility] Insulin Aspart 1 vial 02/13/17 16:30 02/14/17 17:11 Novolog Vial Sliding Scale - SQ Not Given TIDAC [facility] Protocol Miscellaneous 1 each 02/13/17 12:42 Duragesic Patch Waste TD PRN PRN PAIN Oxycodone HCl 10 mg 02/13/17 12:43 02/14/17 17:07 Roxicodone - PO 10 mg Q4H PRN Administration PAIN Pantoprazole Sodium 40 mg 02/12/17 22:00 02/14/17 09:13 Protonix - PO 40 mg DAILY [facility] Administration Polyethylene Glycol 17 gm 02/13/17 16:15 02/14/17 09:10 Miralax (For Daily Use) - PO Not Given DAILY [facility] ASSESSMENT/PLAN: 56y/o M with PMHx PMH nonhodgkin's lymphoma (treated with Cyclophosphamide, Vincristine in remission since 2003), NIDDM on metformin, gastritis (on Ranitidine, Omeprazole, Prevacid), who presented to the ED with diffuse abdominal pain. Pt has recent CT abdomen showing diffuse peritoneal lymphadenitis. #Abdominal pain -likely 2/2 diffuse peritoneal lymphadenitis -Fentanyl 25mcg patch -labs WNL except INR 1.2 #Gastritis -Protonix #DM -Novolog ISS #FEN -not on fluids -lytes wnl -diabetic diet #PPX -heparin SubQ -Protonix #Dispo -Admit to med/surg Home meds confirmed Pablito Joyner MD PGY-1 Visit type - Emergency Visit Emergency Visit: Yes ED Registration Date: 02/12/17 Care time: The patient presented to the Emergency Department on the above date and was hospitalized for further evaluation of their emergent condition. - New Patient This patient is new to me today: No - Critical Care Critical Care patient: No - Discharge Referral Referred to [facility] Med P.C.: No
--- NOTE | 2017-02-14 17:56 | PN ---
Teaching Attending Note Name of Resident: Pablito Joyner ATTENDING PHYSICIAN STATEMENT I saw and evaluated the patient. I reviewed the resident's note and discussed the case with the resident. I agree with the resident's findings and plan as documented. SUBJECTIVE: no fever or chills, abd pain is well controlled today. has N/V . OBJECTIVE: NAD , AAOx3 CV : RRR Lung s: CATB ext : No edema or erythema Abd :soft, NT, ND , NL BS Skin: dry scaly skin with erythematous patches. bandar on trunk Assessment/Plan: 56 y/o man with h/o NHL, s/p chemo in 2003 , now in remision and MM II , who rpesneted with abd pain . 1- Abd pain , likely due to LAP in abd which is likely due recurrent lymphoma - cont fentanyl patch and oxycodone 2- Possible recurrence of NHL. - Lymph node Bx performed today - CT of chest with no mediastinal LAP. axillary lymph nodes noted - echo prechemo - BM BX and treatment as outpt 3- DM II: - Cont SSI - will confirm home meds 4- COnstipation : miralax , colace , did not work. add a dose of lactulose POssible dc tomorrow
[2017-02-14] MEDS ORDERED: LACTULOSE 20 GM/30 ML UDC (FOR ORAL USE ONLY) PO ONE (18:01)
[2017-02-14] MEDS ORDERED: METOCLOPRAMIDE HCL INJECTION 10 MG/2 ML VIAL IVPB PRN (18:37)
[2017-02-14] MEDS ORDERED: ONDANSETRON 4 MG/2 ML VIAL IVPB PRN (18:38)
--- NOTE | 2017-02-14 18:50 | CON.GI ---
Consult Consult Specialty:: GI Referred by:: Dr Bonilla Reason for Consultation:: N/V/abdominal pain - History of Present Illness Chief Complaint: Abdominal pain, Nausea History of Present Illness: 56 M with h/o DM, NHL diagnosed and treated in [place] 2003- with full CHOP regimen after which time he went into remission until this past month when he began developing abdominal discomfort. Over the course of the month the pain increased leading him to come to the ER where a CT of the abd/pelvis was done demonstrating marked diffuse lymphadenopathy suggesting recurrence of NHL. He went for lymph node biopsy today-results pending. I am called to address N/V - History Source History Provided By: Family Member (sister-a [employer] employee) Limitations to Obtaining History: No Limitations - Alcohol/Substance Use Hx Alcohol Use: No - Smoking History Smoking history: Never smoked Home Medications - Allergies Allergies/Adverse Reactions: Allergies Allergy/AdvReac Type Severity Reaction Status Date / Time No Known Allergies Allergy Verified 02/12/17 15:54 - Home Medications Home Medications: Ambulatory Orders Pantoprazole Sodium [Protonix -] 20 mg PO DAILY 02/08/17 Oxycodone HCl/Acetaminophen [Percocet 5-325 mg Tablet] 1 - 2 tab PO Q6H #20 tablet MDD 4 02/09/17 Metformin HCl [Metformin HCl ER] 500 mg PO DAILY 02/12/17 Ondansetron HCl [Zofran] 4 mg PO BID 02/14/17 Physical Exam-GI Vital Signs: Vital Signs Temperature 98.9 F 02/14/17 18:00 Pulse Rate 88 02/14/17 18:00 Respiratory Rate 20 02/14/17 18:00 Blood Pressure 157/96 02/14/17 18:00 O2 Sat by Pulse Oximetry (%) 95 02/14/17 16:08 Constitutional: Yes: Thin Cardiovascular: Yes: Regular Rate and Rhythm Respiratory: Yes: CTA Bilaterally Gastrointestinal Inspection: Yes: WNL ...Auscultate: Yes: Normoactive Bowel Sounds ...Palpate: Yes: Soft. No: Tenderness (Patient states he has deep diffuse pain but no tenderness) ...Percussion: Yes: Dullness Labs: CBC, BMP 02/14/17 06:40 02/14/17 06:40 INR, PTT INR 1.20 (0.82-1.09) H 02/14/17 06:40 Imaging - Results Cat Scan: Report Reviewed (diffuse abdominal adenopathy) Assessment/Plan Patient with likely recurrence of NHL, now with new escalating abdominal pain and N/V. He has no leukocytosis but no tenderness in the presence of pain Pain is likely secondary to Ca recurrence and is being managed effectively at this time with Fentanyl From GI POV there are 2 problems: 1-Narcotic induced constipation-Started Relistor 12 mg SQ daily which should help. Will start po meds when less nauseous. Can give enemas at this time but avoid stimulant laxatives (Dulcolax and senna) 2- Nausea-in part caused by narcotic meds. Would d/c meds other than fentanyl and prn dilaudid for breakthrough. Started scheduled reglan and zofran.
[2017-02-14] MEDS: Methylnaltrexone Bromide 12 MG/0.6 ML KIT SQ SCH (22:27)
[2017-02-15] MEDS: oxyCODONE HCL 5 MG TABLET PO PRN ×3 (02:16→10:35)
[2017-02-15 06:06] LABS: HEP B SURFACE AB Non Reactive (.)
[2017-02-15] MEDS: INSULIN SLIDING SCALE (NOVOLOG) 1 VIAL SQ SCH ×3 (06:14→17:53)
[2017-02-15] MEDS: HEPARIN NA (PORCINE) 5,000 UNITS/ML 1ML VIAL SQ SCH ×3 (06:14→21:46)
[2017-02-15 07:44] LABS: BASOPHIL 0.4 % (0-2.0); EOSINOPHIL 1.5 % (0-4.5); MCH 28.7 pg (25.7-33.7); MEAN CELL VOLUME 84.4 fl (80-96); MEAN PLT VOLUME 7.1 fl (7.5-11.1); NEUTROPHILS 66.8 % (42.8-82.8); PLATELET COUNT 210 K/MM3 (134-434); RDW 13.6 % (11.9-15.9); WHITE BLOOD COUNT 5.1 K/mm3 (4.0-10.0)
[2017-02-15 08:17] LABS: ALBUMIN 2.8 g/dl (3.4-5.0); ALK PHOS 89 U/L (45-117); ANION GAP 6 (8-16); BILIRUBIN,TOTAL 0.9 mg/dL (0.2-1.0); CALCIUM 8.1 mg/dL (8.5-10.1); CO2 32 mmol/L (21-32); CREATININE 0.9 mg/dL (0.7-1.3); GLUCOSE,RANDOM 121 mg/dL (74-106); SGOT/AST 21 U/L (15-37); SGPT/ALT 16 U/L (12-78); TOT PROT 6.5 g/dl (6.4-8.2)
[2017-02-15] MEDS ORDERED: PT OWN MED DRAWER 7, Y5N ONE (09:59)
[2017-02-15] MEDS: Methylnaltrexone Bromide 12 MG/0.6 ML KIT SQ SCH (10:35)
[2017-02-15] MEDS: PANTOPRAZOLE 40 MG TABLET (FP) PO SCH (10:35)
[2017-02-15] MEDS: SODIUM CHLORIDE 1,000 ML IV SCH (10:36)
--- NOTE | 2017-02-15 13:02 | PN ---
GI Progress Note Subjective: still with abdominal pain, poor appetite and insomnia, nause and vomiting improved - Objective Vital Signs: Vital Signs Temperature 98.9 F 02/15/17 10:00 Pulse Rate 85 02/15/17 10:00 Respiratory Rate 20 02/15/17 10:00 Blood Pressure 145/86 02/15/17 10:00 O2 Sat by Pulse Oximetry (%) 97 02/15/17 09:00 Constitutional: Well Nourished Eyes: Yes: Conjunctiva Clear, Occular Prosthesis HENT: Yes: Tonsillar Exudate Cardiovascular: Yes: Regular Rate and Rhythm Respiratory: Yes: CTA Bilaterally Gastrointestinal Inspection: No: Distention ...Palpate: Yes: Firm/Rigid, Guarding, Soft, Splenomegaly, Tenderness (--mild diffuse). No: Hepatomegaly, Mass, Pulsatile Mass Labs: CBC, BMP 02/15/17 06:00 02/15/17 06:00 INR, PTT INR 1.20 (0.82-1.09) H 02/14/17 06:40 Problem List - Problems (1) Abdominal pain Assessment/Plan: secondary to lymphoma of the abdomen R>maintain on Protonix 40mg daily, Reglan 5mg 30min ac Remeron 7.5 mg qhs Code(s): R10.9 - UNSPECIFIED ABDOMINAL PAIN Qualifiers: Abdominal location: generalized Qualified Code(s): R10.84 - Generalized abdominal pain
[2017-02-15] MEDS ORDERED: PANTOPRAZOLE 40 MG TABLET (FP) PO SCH (13:15)
[2017-02-15] MEDS: fentaNYL 50mcg/hr PATCH.TD72 TD SCH (15:05)
[2017-02-15] MEDS: POLYETHYLENE GLYCOL 3350 119 GM BTL PO SCH (16:42)
[2017-02-15] MEDS: METOCLOPRAMIDE HCL 10 MG TABLET (FP) PO SCH (16:42)
--- NOTE | 2017-02-15 18:05 | PN ---
Progress Note (short form) - Note Progress Note: Patient seen and examined. He is resting, but still with some pain, though improved. O/E In NAD Could not appreciate any LAD in the neck/axillary region Abdomen: No organomegaly noted Cor: RRR Lungs:CTA b/l LE: No swelling noted. Last Vital Signs Temp Pulse Resp BP Pulse Ox 100.1 F H 80 20 143/80 97 02/15/17 14:24 02/15/17 14:24 02/15/17 14:24 02/15/17 14:24 02/15/17 09:00 CBC, BMP 02/15/17 06:00 02/15/17 06:00 Current Medications Generic Name Dose Route Start Last Admin Trade Name Freq PRN Reason Stop Dose Admin Docusate Sodium 100 mg 02/13/17 12:42 02/13/17 13:34 Colace - PO 100 mg BID PRN Administration CONSTIPATION Fentanyl 1 patch 02/15/17 11:00 02/15/17 15:05 Duragesic 50mcg Patch - TD 02/22/17 10:48 1 patch Q72H YOKO Administration Heparin Sodium (Porcine) 5,000 unit 02/13/17 14:00 02/15/17 15:10 Heparin - SQ Not Given TID YOKO Sodium Chloride 1,000 mls @ 83 mls/hr 02/13/17 07:30 02/15/17 10:36 Normal Saline - IV 83 mls/hr ASDIR YOKO Administration Insulin Aspart 1 vial 02/13/17 16:30 02/15/17 17:53 Novolog Vial Sliding Scale - SQ 2 units TIDAC YOKO Administration Protocol Methylnaltrexone [place] 12 mg 02/14/17 18:45 02/15/17 10:35 Relistor - SQ 12 mg DAILY YOKO Administration Metoclopramide HCl 5 mg 02/15/17 16:30 02/15/17 16:42 Reglan - PO 5 mg TIDAC YOKO Administration Mirtazapine 7.5 mg 02/15/17 22:00 Remeron - PO HS YOKO Miscellaneous 1 each 02/15/17 10:48 Duragesic Patch Waste TD PRN PRN PAIN Ondansetron HCl 4 mg 02/14/17 18:38 Zofran Injection IVPB Q6H PRN NAUSEA Oxycodone HCl 10 mg 02/13/17 12:43 02/15/17 10:35 Roxicodone - PO 10 mg Q4H PRN Administration PAIN Pantoprazole Sodium 40 mg 02/12/17 22:00 02/15/17 10:35 Protonix - PO 40 mg DAILY YOKO Administration Polyethylene Glycol 17 gm 02/13/17 16:15 02/15/17 16:42 Miralax (For Daily Use) - PO 17 gm DAILY YOKO Administration 56 Y/O male with Hx of NHL treated previously with CHOP in 2003 and new intra- abdominal/retroperitoneal LND Likely a recurrence of his past Lymphoma or a new lymphoma, very less likely other malignancies. -will f.u biopsy results -once nausea/vomiting/pain/constipation improved could be discharged from Onc stand point.
--- NOTE | 2017-02-15 19:01 | PN ---
Teaching Attending Note Name of Resident: Pablito Joyner ATTENDING PHYSICIAN STATEMENT I saw and evaluated the patient. I reviewed the resident's note and discussed the case with the resident. I agree with the resident's findings and plan as documented. SUBJECTIVE: had a fever today. had severe pain in AM . better in Afternoon OBJECTIVE: NAD , AAOx3 CV : RRR Lungs: CATB ext : No edema or erythema Abd :soft, NT, ND , NL BS Skin: dry scaly skin with erythematous patches. bandar on trunk R flank with fluid filled vesicles ( 2 ) , no surrounding erythema or tenderness Assessment/Plan: 56 y/o man with h/o NHL, s/p chemo in 2003 , now in remision and MM II , who rpesneted with abd pain . 1- Abd pain , likely due to LAP in abd which is likely due recurrent lymphoma - increase fentanyl patch to 50 mcg /3 days . cont oxycodone 2- Possible recurrence of NHL. - Lymph node Bx performed yesterday - CT of chest with no mediastinal LAP. axillary lymph nodes noted - pre-chemo Echo , pending - BM BX and treatment as outpt 3- DM II: - Cont SSI while here 4- COnstipation : cont ralistor and other laxatives. N/V . imrpoved , cont current management POssible dc tomorrow
--- NOTE | 2017-02-15 20:03 | PN ---
Physical Exam: SUBJECTIVE: Patient seen and examined at bedside. Pt complains of abdominal pain. Pt denies larson, cp, sob, abd pain, dysuria, diarrhea, fever, chills. OBJECTIVE: Vital Signs Period Temp Pulse Resp BP Sys/Hutchison Pulse Ox Last 24 Hr 98.9 F-100.5 F 80-94 20-20 129-145/79-95 97-97 GENERAL: The patient is awake, alert, and fully oriented, in no acute distress. HEAD: Normal with no signs of trauma. EYES: PERRL, extraocular movements intact, sclera anicteric, conjunctiva clear. No ptosis. ENT: Ears normal, nares patent, oropharynx clear without exudates, moist mucous membranes. NECK: Trachea midline, full range of motion, supple. LUNGS: Breath sounds equal, clear to auscultation bilaterally, no wheezes, no crackles, no accessory muscle use. HEART: Regular rate and rhythm, normal S1, S2 without murmur, rub or gallop. ABDOMEN: Soft, nontender, nondistended, normoactive bowel sounds, no guarding, no rebound, no hepatosplenomegaly, no masses. EXTREMITIES: 2+ pulses, warm, well-perfused, no edema. NEUROLOGICAL: Cranial nerves II through XII grossly intact. Normal speech, gait not observed. PSYCH: Normal mood, normal affect. SKIN: Diffuse scaly rash (ichthiosis) and diffuse erythematous rash noted. Warm , dry, normal turgor no lesions noted Laboratory Results - last 24 hr 02/14/17 02/14/17 02/14/17 06:40 19:20 22:32 WBC RBC Hgb Hct MCV MCH MCHC RDW Plt Count MPV Neutrophils % Lymphocytes % Monocytes % Eosinophils % Basophils % Sodium Potassium Chloride Carbon Dioxide Anion Gap BUN Creatinine Creat Clearance w eGFR POC Glucometer 116 Random Glucose Lactic Acid 1.5 Calcium Total Bilirubin AST ALT Alkaline Phosphatase Total Protein Albumin Hep Bs Ab Concentration Non reactive Hep B Core Ab Interpret Negative 02/15/17 02/15/17 02/15/17 06:00 06:00 06:13 WBC 5.1 RBC 4.60 Hgb 13.2 Hct 38.9 MCV 84.4 MCH 28.7 MCHC 34.0 RDW 13.6 Plt Count 210 MPV 7.1 L Neutrophils % 66.8 Lymphocytes % 17.0 D Monocytes % 14.3 H Eosinophils % 1.5 D Basophils % 0.4 Sodium 133 L Potassium 4.2 Chloride 95 L Carbon Dioxide 32 Anion Gap 6 L BUN 17 Creatinine 0.9 Creat Clearance w eGFR > 60 POC Glucometer 122 Random Glucose 121 H D Lactic Acid Calcium 8.1 L Total Bilirubin 0.9 AST 21 ALT 16 Alkaline Phosphatase 89 Total Protein 6.5 Albumin 2.8 L Hep Bs Ab Concentration Hep B Core Ab Interpret 02/15/17 02/15/17 11:54 16:51 WBC RBC Hgb Hct MCV MCH MCHC RDW Plt Count MPV Neutrophils % Lymphocytes % Monocytes % Eosinophils % Basophils % Sodium Potassium Chloride Carbon Dioxide Anion Gap BUN Creatinine Creat Clearance w eGFR POC Glucometer 161 161 Random Glucose Lactic Acid Calcium Total Bilirubin AST ALT Alkaline Phosphatase Total Protein Albumin Hep Bs Ab Concentration Hep B Core Ab Interpret Active Medications Generic Name Dose Route Start Last Admin Trade Name Freq PRN Reason Stop Dose Admin Docusate Sodium 100 mg 02/13/17 12:42 02/13/17 13:34 Colace - PO 100 mg BID PRN Administration CONSTIPATION Fentanyl 1 patch 02/15/17 11:00 02/15/17 15:05 Duragesic 50mcg Patch - TD 02/22/17 10:48 1 patch Q72H YOKO Administration Heparin Sodium (Porcine) 5,000 unit 02/13/17 14:00 02/15/17 15:10 Heparin - SQ Not Given TID [facility] Insulin Aspart 1 vial 02/13/17 16:30 02/15/17 17:53 Novolog Vial Sliding Scale - SQ 2 units TIDAC YOKO Administration Protocol Methylnaltrexone [place] 12 mg 02/14/17 18:45 02/15/17 10:35 Relistor - SQ 12 mg DAILY YOKO Administration Metoclopramide HCl 5 mg 02/15/17 16:30 02/15/17 16:42 Reglan - PO 5 mg TIDAC YOKO Administration Mirtazapine 7.5 mg 02/15/17 22:00 Remeron - PO HS YOKO Miscellaneous 1 each 02/15/17 10:48 Duragesic Patch Waste TD PRN PRN PAIN Ondansetron HCl 4 mg 02/14/17 18:38 Zofran Injection IVPB Q6H PRN NAUSEA Oxycodone HCl 10 mg 02/13/17 12:43 02/15/17 10:35 Roxicodone - PO 10 mg Q4H PRN Administration PAIN Pantoprazole Sodium 40 mg 02/12/17 22:00 02/15/17 10:35 Protonix - PO 40 mg DAILY YOKO Administration Polyethylene Glycol 17 gm 02/13/17 16:15 02/15/17 16:42 Miralax (For Daily Use) - PO 17 gm DAILY YOKO Administration ASSESSMENT/PLAN: 56y/o M with PMHx PMH nonhodgkin's lymphoma (treated with Cyclophosphamide, Vincristine in remission since 2003), NIDDM on metformin, gastritis (on Ranitidine, Omeprazole, Prevacid), who presented to the ED with diffuse abdominal pain. Pt has recent CT abdomen showing diffuse peritoneal lymphadenitis. #Abdominal pain -likely 2/2 diffuse peritoneal lymphadenitis -Fentanyl increased to 50mcg patch -oxycodone #Peritoneal LAD -likely recurrence of NHL -LN Bx results pending -BM Bx results pending -CT chest showed no LAD. showed axillary LN -Echo pending #Gastritis -Protonix #DM -Novolog ISS #Constipation -laxitives #FEN -not on fluids -lytes wnl -diabetic diet #PPX -heparin SubQ -Protonix #Dispo -Admit to med/surg Pablito Joyner MD PGY-1 Visit type - Emergency Visit Emergency Visit: Yes ED Registration Date: 02/12/17 Care time: The patient presented to the Emergency Department on the above date and was hospitalized for further evaluation of their emergent condition. - New Patient This patient is new to me today: No - Critical Care Critical Care patient: No - Discharge Referral Referred to [facility] Med P.C.: No
[2017-02-15] MEDS: MIRTAZAPINE 15 MG TABLET (FP) PO SCH (21:46)
[2017-02-16] MEDS: INSULIN SLIDING SCALE (NOVOLOG) 1 VIAL SQ SCH ×3 (06:12→16:19)
[2017-02-16] MEDS: HEPARIN NA (PORCINE) 5,000 UNITS/ML 1ML VIAL SQ SCH ×3 (06:13→21:57)
[2017-02-16] MEDS: METOCLOPRAMIDE HCL 10 MG TABLET (FP) PO SCH ×3 (06:14→16:18)
[2017-02-16] MEDS: oxyCODONE HCL 5 MG TABLET PO PRN (06:40)
[2017-02-16 07:54] LABS: MCH 28.8 pg (25.7-33.7); MCHC 34.4 g/dl (32.0-35.9); MEAN CELL VOLUME 83.7 fl (80-96); MEAN PLT VOLUME 7.3 fl (7.5-11.1); PLATELET COUNT 229 K/MM3 (134-434); RDW 13.7 % (11.9-15.9); WHITE BLOOD COUNT 6.3 K/mm3 (4.0-10.0)
[2017-02-16 08:13] LABS: CALCIUM 8.2 mg/dL (8.5-10.1)
[2017-02-16 08:17] LABS: ANION GAP 8 (8-16); CO2 30 mmol/L (21-32); CREATININE 0.9 mg/dL (0.7-1.3); GLUCOSE,RANDOM 155 mg/dL (74-106)
[2017-02-16] MEDS: POLYETHYLENE GLYCOL 3350 119 GM BTL PO SCH (10:10)
[2017-02-16] MEDS: PANTOPRAZOLE 40 MG TABLET (FP) PO SCH (10:11)
[2017-02-16] MEDS: DOCUSATE SODIUM 100 MG CAPSULE (FP) PO PRN (10:11)
[2017-02-16] MEDS: Methylnaltrexone Bromide 12 MG/0.6 ML KIT SQ SCH (10:12)
[2017-02-16 12:33] LABS: ALBUMIN 2.7 g/dl (3.4-5.0); ALK PHOS 89 U/L (45-117); BILIRUBIN,TOTAL 0.7 mg/dL (0.2-1.0); SGOT/AST 21 U/L (15-37); SGPT/ALT 17 U/L (12-78); TOT PROT 6.5 g/dl (6.4-8.2)
--- NOTE | 2017-02-16 13:04 | PN ---
Physical Exam: SUBJECTIVE: Patient seen and examined at bedside. Pt complains of abdominal pain and has had low fever and mild tachycardia overnight. Pt denies larson, cp, sob , abd pain, dysuria, diarrhea, chills. OBJECTIVE: Vital Signs Period Temp Pulse Resp BP Sys/Hutchison Pulse Ox Last 24 Hr 99.9 F-100.5 F 80-123 18-20 115-159/62-92 97 GENERAL: The patient is awake, alert, and fully oriented, in no acute distress. HEAD: Normal with no signs of trauma. EYES: sclera anicteric, conjunctiva clear. No ptosis. ENT: oropharynx clear without exudates, moist mucous membranes. NECK: Trachea midline, full range of motion, supple. LUNGS: Breath sounds equal, clear to auscultation bilaterally, no wheezes, no crackles, no accessory muscle use. HEART: Regular rate and rhythm, normal S1, S2 without murmur, rub or gallop. ABDOMEN: Soft, nontender, nondistended, normoactive bowel sounds, no guarding, no rebound, no hepatosplenomegaly, no masses. EXTREMITIES: 2+ pulses, warm, well-perfused, no edema. NEUROLOGICAL: Cranial nerves II through XII grossly intact. Normal speech, gait not observed. PSYCH: Normal mood, normal affect. SKIN: Diffuse scaly rash (ichthiosis) and diffuse erythematous rash noted. Dime sized blisters on lower back. Likely 2/2 tape. Warm, dry, normal turgor. Laboratory Results - last 24 hr 02/15/17 02/15/17 02/16/17 06:00 16:51 05:35 WBC 6.3 RBC 4.48 Hgb 12.9 Hct 37.5 MCV 83.7 MCH 28.8 MCHC 34.4 RDW 13.7 Plt Count 229 MPV 7.3 L Sodium Potassium Chloride Carbon Dioxide Anion Gap BUN Creatinine Creat Clearance w eGFR POC Glucometer 161 Random Glucose Calcium Total Bilirubin AST ALT Alkaline Phosphatase Total Protein Albumin Hepatitis C Antibody <0.1 02/16/17 02/16/17 02/16/17 05:35 05:35 06:10 WBC RBC Hgb Hct MCV MCH MCHC RDW Plt Count MPV Sodium 132 L Cancelled Potassium 4.1 Cancelled Chloride 94 L Cancelled Carbon Dioxide 30 Cancelled Anion Gap 8 Cancelled BUN 13 D Cancelled Creatinine 0.9 Cancelled Creat Clearance w eGFR Cancelled POC Glucometer 173 Random Glucose 155 H D Cancelled Calcium 8.2 L Cancelled Total Bilirubin 0.7 D Cancelled AST 21 Cancelled ALT 17 Cancelled Alkaline Phosphatase 89 Cancelled Total Protein 6.5 Cancelled Albumin 2.7 L Cancelled Hepatitis C Antibody 02/16/17 10:54 WBC RBC Hgb Hct MCV MCH MCHC RDW Plt Count MPV Sodium Potassium Chloride Carbon Dioxide Anion Gap BUN Creatinine Creat Clearance w eGFR POC Glucometer 186 Random Glucose Calcium Total Bilirubin AST ALT Alkaline Phosphatase Total Protein Albumin Hepatitis C Antibody Active Medications Generic Name Dose Route Start Last Admin Trade Name Freq PRN Reason Stop Dose Admin Docusate Sodium 100 mg 02/13/17 12:42 02/16/17 10:11 Colace - PO 100 mg BID PRN Administration CONSTIPATION Fentanyl 1 patch 02/15/17 11:00 02/15/17 15:05 Duragesic 50mcg Patch - TD 02/22/17 10:48 1 patch Q72H YOKO Administration Heparin Sodium (Porcine) 5,000 unit 02/13/17 14:00 02/16/17 06:13 Heparin - SQ 5,000 unit TID YOKO Administration Insulin Aspart 1 vial 02/13/17 16:30 02/16/17 11:13 Novolog Vial Sliding Scale - SQ 2 units TIDAC YOKO Administration Protocol Methylnaltrexone [place] 12 mg 02/14/17 18:45 02/16/17 10:12 Relistor - SQ 12 mg DAILY YOKO Administration Metoclopramide HCl 5 mg 02/15/17 16:30 02/16/17 11:13 Reglan - PO 5 mg TIDAC YOKO Administration Mirtazapine 7.5 mg 02/15/17 22:00 02/15/17 21:46 Remeron - PO 7.5 mg HS YOKO Administration Miscellaneous 1 each 02/15/17 10:48 Duragesic Patch Waste TD PRN PRN PAIN Ondansetron HCl 4 mg 02/14/17 18:38 Zofran Injection IVPB Q6H PRN NAUSEA Oxycodone HCl 10 mg 02/13/17 12:43 02/16/17 06:40 Roxicodone - PO 10 mg Q4H PRN Administration PAIN Pantoprazole Sodium 40 mg 02/12/17 22:00 02/16/17 10:11 Protonix - PO 40 mg DAILY YOKO Administration Polyethylene Glycol 17 gm 02/13/17 16:15 02/16/17 10:10 Miralax (For Daily Use) - PO 17 gm DAILY YOKO Administration ASSESSMENT/PLAN: 56y/o M with PMHx PMH nonhodgkin's lymphoma (treated with Cyclophosphamide, Vincristine in remission since 2003), NIDDM on metformin, gastritis (on Ranitidine, Omeprazole, Prevacid), who presented to the ED with diffuse abdominal pain. Pt has recent CT abdomen showing diffuse peritoneal lymphadenitis. #Abdominal pain -likely 2/2 diffuse peritoneal lymphadenitis -Fentanyl -oxycodone #Peritoneal LAD -likely recurrence of NHL -LN Bx results pending -BM Bx results pending -CT chest showed no LAD. showed axillary LN -Echo pending #Fever/Tachy -likely due to LAD -BCx, UCx, TSH, T3/4 #Gastritis -Protonix #DM -Novolog ISS #Constipation -laxitives, enemas per GI #FEN -not on fluids -lytes wnl -diabetic diet #PPX -heparin SubQ -Protonix #Dispo -Admit to med/surg Pablito Joyner MD PGY-1 Visit type - Emergency Visit Emergency Visit: Yes ED Registration Date: 02/12/17 Care time: The patient presented to the Emergency Department on the above date and was hospitalized for further evaluation of their emergent condition. - New Patient This patient is new to me today: No - Critical Care Critical Care patient: No - Discharge Referral Referred to [facility] Med P.C.: No
[2017-02-16] MEDS ORDERED: SODIUM CHLORIDE 1,000 ML IV STA (15:14)
--- NOTE | 2017-02-16 18:58 | PN ---
Teaching Attending Note Name of Resident: Pablito Joyner ATTENDING PHYSICIAN STATEMENT I saw and evaluated the patient. I reviewed the resident's note and discussed the case with the resident. I agree with the resident's findings and plan as documented. SUBJECTIVE: Fever overnight with tachycardia OBJECTIVE: Vital Signs Temperature 98.8 F 02/16/17 14:27 Pulse Rate 114 H 02/16/17 14:27 Respiratory Rate 20 02/16/17 14:27 Blood Pressure 113/76 02/16/17 14:27 O2 Sat by Pulse Oximetry (%) 97 02/16/17 08:56 CBCD WBC 6.3 K/mm3 (4.0-10.0) 02/16/17 05:35 RBC 4.48 M/mm3 (4.00-5.60) 02/16/17 05:35 Hgb 12.9 GM/dL (11.7-16.9) 02/16/17 05:35 Hct 37.5 % (35.4-49) 02/16/17 05:35 MCV 83.7 fl (80-96) 02/16/17 05:35 MCHC 34.4 g/dl (32.0-35.9) 02/16/17 05:35 RDW 13.7 % (11.9-15.9) 02/16/17 05:35 Plt Count 229 K/MM3 (134-434) 02/16/17 05:35 MPV 7.3 fl (7.5-11.1) L 02/16/17 05:35 CMP Sodium 132 mmol/L (136-145) L 02/16/17 05:35 Potassium 4.1 mmol/L (3.5-5.1) 02/16/17 05:35 Chloride 94 mmol/L (98-107) L 02/16/17 05:35 Carbon Dioxide 30 mmol/L (21-32) 02/16/17 05:35 Anion Gap 8 (8-16) 02/16/17 05:35 BUN 13 mg/dL (7-18) D 02/16/17 05:35 Creatinine 0.9 mg/dL (0.7-1.3) 02/16/17 05:35 Creat Clearance w eGFR Y 02/16/17 05:35 Random Glucose 155 mg/dL (74-106) H D 02/16/17 05:35 Calcium 8.2 mg/dL (8.5-10.1) L 02/16/17 05:35 Total Bilirubin 0.7 mg/dL (0.2-1.0) D 02/16/17 05:35 AST 21 U/L (15-37) 02/16/17 05:35 ALT 17 U/L (12-78) 02/16/17 05:35 Alkaline Phosphatase 89 U/L (45-117) 02/16/17 05:35 Total Protein 6.5 g/dl (6.4-8.2) 02/16/17 05:35 Albumin 2.7 g/dl (3.4-5.0) L 02/16/17 05:35 Current Medications Generic Name Dose Route Start Last Admin Trade Name Freq PRN Reason Stop Dose Admin Docusate Sodium 100 mg 02/13/17 12:42 02/16/17 10:11 Colace - PO 100 mg BID PRN Administration CONSTIPATION Fentanyl 1 patch 02/15/17 11:00 02/15/17 15:05 Duragesic 50mcg Patch - TD 02/22/17 10:48 1 patch Q72H YOKO Administration Heparin Sodium (Porcine) 5,000 unit 02/13/17 14:00 02/16/17 14:20 Heparin - SQ 5,000 unit TID YOKO Administration Insulin Aspart 1 vial 02/13/17 16:30 02/16/17 16:19 Novolog Vial Sliding Scale - SQ 6 units TIDAC YOKO Administration Protocol Methylnaltrexone [place] 12 mg 02/14/17 18:45 02/16/17 10:12 Relistor - SQ 12 mg DAILY YOKO Administration Metoclopramide HCl 5 mg 02/15/17 16:30 02/16/17 16:18 Reglan - PO 5 mg TIDAC YOKO Administration Mirtazapine 7.5 mg 02/15/17 22:00 02/15/17 21:46 Remeron - PO 7.5 mg HS YOKO Administration Miscellaneous 1 each 02/15/17 10:48 Duragesic Patch Waste TD PRN PRN PAIN Ondansetron HCl 4 mg 02/14/17 18:38 Zofran Injection IVPB Q6H PRN NAUSEA Oxycodone HCl 10 mg 02/13/17 12:43 02/16/17 06:40 Roxicodone - PO 10 mg Q4H PRN Administration PAIN Pantoprazole Sodium 40 mg 02/12/17 22:00 02/16/17 10:11 Protonix - PO 40 mg DAILY YOKO Administration Polyethylene Glycol 17 gm 02/13/17 16:15 02/16/17 10:10 Miralax (For Daily Use) - PO 17 gm DAILY YOKO Administration Home Medications Medication Instructions Recorded Pantoprazole Sodium [Protonix -] 20 mg PO DAILY 02/08/17 Oxycodone HCl/Acetaminophen 1 - 2 tab PO Q6H #20 tablet MDD 4 02/09/17 [Percocet 5-325 mg Tablet] Metformin HCl [Metformin HCl ER] 500 mg PO DAILY 02/12/17 Ondansetron HCl [Zofran] 4 mg PO BID 02/14/17 PE: per resident's note ASSESSMENT AND PLAN: 56 y/o man with h/o NHL, s/p chemo in 2003 , now in remision and MM II , who presented with abdominal pain . # Abdominal pain most likely due to recurrent lymphoma increased fentanyl patch to 50 mcg /3 days , continue oxycodone for breakthrough pain # Possible recurrence of NHL. Lymph node Bx performed yesterday . waiting for BX result. CT of chest with no mediastinal LAP. axillary lymph nodes noted pre-chemo Echo , pending follow the result . BM BX and treatment as outpt # DM II: Cont SSI while here # COnstipation : cont ralistor and other laxatives. # s/p N/V . imrpoved , cont current management DVT Px; Heparin
--- NOTE | 2017-02-16 19:24 | PN ---
Progress Note (short form) - Note Progress Note: Patient seen and examined. Pain is much improved. No BM yet O/E In NAD Could not appreciate any LAD in the neck/axillary region Abdomen: No organomegaly noted Cor: RRR Lungs:CTA b/l LE: No swelling noted. Last Vital Signs Temp Pulse Resp BP Pulse Ox 99.9 F H 107 H 20 129/89 97 02/16/17 18:00 02/16/17 18:00 02/16/17 18:00 02/16/17 18:00 02/16/17 08:56 CBC, BMP 02/16/17 05:35 02/16/17 05:35 Current Medications Generic Name Dose Route Start Last Admin Trade Name Freq PRN Reason Stop Dose Admin Docusate Sodium 100 mg 02/13/17 12:42 02/16/17 10:11 Colace - PO 100 mg BID PRN Administration CONSTIPATION Fentanyl 1 patch 02/15/17 11:00 02/15/17 15:05 Duragesic 50mcg Patch - TD 02/22/17 10:48 1 patch Q72H YOKO Administration Heparin Sodium (Porcine) 5,000 unit 02/13/17 14:00 02/16/17 14:20 Heparin - SQ 5,000 unit TID YOKO Administration Insulin Aspart 1 vial 02/13/17 16:30 02/16/17 16:19 Novolog Vial Sliding Scale - SQ 6 units TIDAC YOKO Administration Protocol Methylnaltrexone [place] 12 mg 02/14/17 18:45 02/16/17 10:12 Relistor - SQ 12 mg DAILY YOKO Administration Metoclopramide HCl 5 mg 02/15/17 16:30 02/16/17 16:18 Reglan - PO 5 mg TIDAC YOKO Administration Mirtazapine 7.5 mg 02/15/17 22:00 02/15/17 21:46 Remeron - PO 7.5 mg HS YOKO Administration Miscellaneous 1 each 02/15/17 10:48 Duragesic Patch Waste TD PRN PRN PAIN Ondansetron HCl 4 mg 02/14/17 18:38 Zofran Injection IVPB Q6H PRN NAUSEA Oxycodone HCl 10 mg 02/13/17 12:43 02/16/17 06:40 Roxicodone - PO 10 mg Q4H PRN Administration PAIN Pantoprazole Sodium 40 mg 02/12/17 22:00 02/16/17 10:11 Protonix - PO 40 mg DAILY YOKO Administration Polyethylene Glycol 17 gm 02/13/17 16:15 02/16/17 10:10 Miralax (For Daily Use) - PO 17 gm DAILY YOKO Administration 56 Y/O male with Hx of NHL treated previously with CHOP in 2003 and new intra- abdominal/retroperitoneal LND Likely a recurrence of his past Lymphoma or a new lymphoma, very less likely other malignancies. Abdominal/Retroperitoneal LAD Abdominal pain Fever Constipation -will f.u LN biopsy results -hepatitis panel reviewed -ECHO -fever, likely from lymphoma, but infectious causes needed to be ruled out. -pain is well controlled -No bowel movement yet, on methylnaltrexone will follow
[2017-02-16] MEDS ORDERED: INSULIN (NOVOLOG) ASPART 100 UNITS/ML 10ML VIAL ONE (21:04)
[2017-02-16] MEDS: MIRTAZAPINE 15 MG TABLET (FP) PO SCH (21:58)
[2017-02-17] MEDS: HEPARIN NA (PORCINE) 5,000 UNITS/ML 1ML VIAL SQ SCH ×3 (06:11→21:13)
[2017-02-17] MEDS: INSULIN SLIDING SCALE (NOVOLOG) 1 VIAL SQ SCH ×3 (06:13→17:39)
[2017-02-17] MEDS: METOCLOPRAMIDE HCL 10 MG TABLET (FP) PO SCH ×3 (06:13→17:39)
[2017-02-17 08:31] LABS: FREE T4 1.32 ng/dl (0.76-1.16); THYROID STIMULATING HORMONE 6.8 uIU/ml (0.358-3.74)
[2017-02-17] MEDS ORDERED: PT OWN MED DRAWER 7, Y5N ONE (09:34)
[2017-02-17] MEDS: PANTOPRAZOLE 40 MG TABLET (FP) PO SCH (09:50)
[2017-02-17] MEDS: POLYETHYLENE GLYCOL 3350 119 GM BTL PO SCH (09:51)
[2017-02-17] MEDS: Methylnaltrexone Bromide 12 MG/0.6 ML KIT SQ SCH (09:51)
[2017-02-17 10:23] LABS: BASOPHIL 0.7 % (0-2.0); EOSINOPHIL 6.5 % (0-4.5); MCH 28.1 pg (25.7-33.7); MCHC 33.4 g/dl (32.0-35.9); MEAN PLT VOLUME 7.1 fl (7.5-11.1); NEUTROPHILS 60.4 % (42.8-82.8); PLATELET COUNT 275 K/MM3 (134-434); RDW 14.1 % (11.9-15.9); WHITE BLOOD COUNT 6.3 K/mm3 (4.0-10.0)
[2017-02-17 10:35] LABS: ALBUMIN 2.8 g/dl (3.4-5.0); ALK PHOS 106 U/L (45-117); ANION GAP 7 (8-16); BILIRUBIN,TOTAL 0.7 mg/dL (0.2-1.0); CALCIUM 8.3 mg/dL (8.5-10.1); CO2 30 mmol/L (21-32); CREATININE 1.1 mg/dL (0.7-1.3); GLUCOSE,RANDOM 209 mg/dL (74-106); SGOT/AST 30 U/L (15-37); SGPT/ALT 23 U/L (12-78)
--- NOTE | 2017-02-17 11:23 | EKG ---
Test Reason : Blood Pressure : / mmHG Vent. Rate : 114 BPM Atrial Rate : 114 BPM P-R Int : 140 ms QRS Dur : 082 ms QT Int : 294 ms P-R-T Axes : 055 010 051 degrees QTc Int : 405 ms SINUS TACHYCARDIA OTHERWISE NORMAL ECG WHEN COMPARED WITH ECG OF 12-FEB-2017 22:53, VENT. RATE HAS INCREASED BY 42 BPM Confirmed by DANTE FENTON MD ([id number]) on 02/17/2017 11:22:54 AM Referred By: Talha ESPITIA Confirmed By:DANTE FENTON MD
[2017-02-17 16:33] LABS: URINE APPEARANCE CLEAR; URINE BILIRUBIN NEGATIVE (NEGATIVE); URINE BLOOD 1+ (NEGATIVE); URINE COLOR YELLOW; URINE GLUCOSE (UA) 1+ (NEGATIVE); URINE KETONE NEGATIVE (NEGATIVE); URINE LEUK ESTERASE NEGATIVE (NEGATIVE); URINE NITRITE NEGATIVE (NEGATIVE); URINE PROTEIN NEGATIVE (NEGATIVE); URINE UROBILINOGEN NEGATIVE mg/dL (0.2-1.0)
[2017-02-17 16:36] LABS: URINE BACTERIA RARE /hpf (NONE SEEN); URINE HYALINE CAST 1 /lpf; URINE MUCUS FEW; URINE RBC 1 /hpf (0-3); URINE WBC 3 /hpf (3-5)
--- NOTE | 2017-02-17 16:40 | PN ---
Physical Exam: SUBJECTIVE: Patient seen and examined at bedside. Pt has had low grade fever and mild tachycardia overnight. Pt has no pain. Pt denies larson, cp, sob, abd pain , dysuria, diarrhea, chills. OBJECTIVE: Vital Signs Period Temp Pulse Resp BP Sys/Hutchison Pulse Ox Last 24 Hr 98 F-100.2 F 18-122 20-120 124-150/79-99 97-97 GENERAL: The patient is awake, alert, and fully oriented, in no acute distress. HEAD: Normal with no signs of trauma. EYES: sclera anicteric, conjunctiva clear. No ptosis. ENT: oropharynx clear without exudates, moist mucous membranes. NECK: Trachea midline, full range of motion, supple. LUNGS: Breath sounds equal, clear to auscultation bilaterally, no wheezes, no crackles, no accessory muscle use. HEART: Regular rate and rhythm, normal S1, S2 without murmur, rub or gallop. ABDOMEN: Soft, nontender, nondistended, normoactive bowel sounds, no guarding, no rebound, no hepatosplenomegaly, no masses. EXTREMITIES: 2+ pulses, warm, well-perfused, no edema. NEUROLOGICAL: Cranial nerves II through XII grossly intact. Normal speech, gait not observed. PSYCH: Normal mood, normal affect. SKIN: Diffuse scaly rash (ichthiosis) and diffuse erythematous rash noted. Dime sized blisters on lower back have ruptured. Warm, dry, normal turgor. Laboratory Results - last 24 hr 02/16/17 02/16/17 02/17/17 16:17 21:56 06:00 WBC RBC Hgb Hct MCV MCH MCHC RDW Plt Count MPV Neutrophils % Lymphocytes % Monocytes % Eosinophils % Basophils % Sodium Potassium Chloride Carbon Dioxide Anion Gap BUN Creatinine Creat Clearance w eGFR POC Glucometer 276 220 Random Glucose Calcium Total Bilirubin AST ALT Alkaline Phosphatase Total Protein Albumin TSH 6.80 H Free T4 1.32 H 02/17/17 02/17/17 02/17/17 06:10 09:45 09:45 WBC 6.3 RBC 4.52 Hgb 12.7 Hct 38.0 MCV 84.0 MCH 28.1 MCHC 33.4 RDW 14.1 Plt Count 275 D MPV 7.1 L Neutrophils % 60.4 Lymphocytes % 20.8 D Monocytes % 11.6 H Eosinophils % 6.5 H D Basophils % 0.7 Sodium 133 L Potassium 4.1 Chloride 96 L Carbon Dioxide 30 Anion Gap 7 L BUN 15 Creatinine 1.1 D Creat Clearance w eGFR > 60 POC Glucometer 211 Random Glucose 209 H D Calcium 8.3 L Total Bilirubin 0.7 AST 30 D ALT 23 D Alkaline Phosphatase 106 Total Protein 7.0 Albumin 2.8 L TSH Free T4 02/17/17 11:45 WBC RBC Hgb Hct MCV MCH MCHC RDW Plt Count MPV Neutrophils % Lymphocytes % Monocytes % Eosinophils % Basophils % Sodium Potassium Chloride Carbon Dioxide Anion Gap BUN Creatinine Creat Clearance w eGFR POC Glucometer 182 Random Glucose Calcium Total Bilirubin AST ALT Alkaline Phosphatase Total Protein Albumin TSH Free T4 Active Medications Generic Name Dose Route Start Last Admin Trade Name Freq PRN Reason Stop Dose Admin Docusate Sodium 100 mg 02/13/17 12:42 02/16/17 10:11 Colace - PO 100 mg BID PRN Administration CONSTIPATION Fentanyl 1 patch 02/15/17 11:00 02/15/17 15:05 Duragesic 50mcg Patch - TD 02/22/17 10:48 1 patch Q72H YOKO Administration Heparin Sodium (Porcine) 5,000 unit 02/13/17 14:00 02/17/17 06:11 Heparin - SQ 5,000 unit TID YOKO Administration Insulin Aspart 1 vial 02/13/17 16:30 02/17/17 12:02 Novolog Vial Sliding Scale - SQ 2 units TIDAC YOKO Administration Protocol Methylnaltrexone [place] 12 mg 02/14/17 18:45 02/17/17 09:51 Relistor - SQ 12 mg DAILY YOKO Administration Metoclopramide HCl 5 mg 02/15/17 16:30 02/17/17 11:54 Reglan - PO Not Given TIDAC YOKO Mirtazapine 7.5 mg 02/15/17 22:00 02/16/17 21:58 Remeron - PO 7.5 mg HS YOKO Administration Miscellaneous 1 each 02/15/17 10:48 Duragesic Patch Waste TD PRN PRN PAIN Ondansetron HCl 4 mg 02/14/17 18:38 Zofran Injection IVPB Q6H PRN NAUSEA Oxycodone HCl 10 mg 02/13/17 12:43 02/16/17 06:40 Roxicodone - PO 10 mg Q4H PRN Administration PAIN Pantoprazole Sodium 40 mg 02/12/17 22:00 02/17/17 09:50 Protonix - PO 40 mg DAILY YOKO Administration Polyethylene Glycol 17 gm 02/13/17 16:15 02/17/17 09:51 Miralax (For Daily Use) - PO 17 gm DAILY YOKO Administration ASSESSMENT/PLAN: 56y/o M with PMHx PMH nonhodgkin's lymphoma (treated with Cyclophosphamide, Vincristine in remission since 2003), NIDDM on metformin, gastritis (on Ranitidine, Omeprazole, Prevacid), who presented to the ED with diffuse abdominal pain. Pt has recent CT abdomen showing diffuse peritoneal lymphadenitis. #Abdominal pain -likely 2/2 diffuse peritoneal lymphadenitis -Fentanyl -Oxycodone -BM this am #Peritoneal LAD -likely recurrence of NHL -CT chest showed no LAD. showed axillary LN -Echo: normal EF. focal lesion of anterior mitral leaflet: vegetation cannot be ruled out -LN Bx results pending -BM Bx results pending #Fever/Tachy -likely due to LAD -TSH 6.80, T4 1.32, T3 pending -BCx, UCx, UA negative #Gastritis -Protonix #DM -Novolog ISS #Constipation -laxitives, enemas per GI #FEN -not on fluids -lytes wnl -diabetic diet #PPX -heparin SubQ -Protonix #Dispo -Admit to med/surg Pablito Joyner MD PGY-1 Visit type - Emergency Visit Emergency Visit: No - New Patient This patient is new to me today: No - Critical Care Critical Care patient: No - Discharge Referral Referred to [facility] Med P.C.: No
--- NOTE | 2017-02-17 16:44 | PN ---
Progress Note (short form) - Note Progress Note: Patient seen and examined. Pain is much improved. had a BM Feels better than the last few days O/E In NAD Could not appreciate any LAD in the neck/axillary region Abdomen: No organomegaly noted Cor: RRR Lungs:CTA b/l LE: No swelling noted. Last Vital Signs Temp Pulse Resp BP Pulse Ox 98 F 20 L 98 H 130/83 97 02/17/17 15:05 02/17/17 15:05 02/17/17 15:05 02/17/17 15:05 02/17/17 09:00 Current Medications Generic Name Dose Route Start Last Admin Trade Name Freq PRN Reason Stop Dose Admin Docusate Sodium 100 mg 02/13/17 12:42 02/16/17 10:11 Colace - PO 100 mg BID PRN Administration CONSTIPATION Fentanyl 1 patch 02/15/17 11:00 02/15/17 15:05 Duragesic 50mcg Patch - TD 02/22/17 10:48 1 patch Q72H YOKO Administration Heparin Sodium (Porcine) 5,000 unit 02/13/17 14:00 02/17/17 06:11 Heparin - SQ 5,000 unit TID YOKO Administration Insulin Aspart 1 vial 02/13/17 16:30 02/17/17 12:02 Novolog Vial Sliding Scale - SQ 2 units TIDAC YOKO Administration Protocol Methylnaltrexone [place] 12 mg 02/14/17 18:45 02/17/17 09:51 Relistor - SQ 12 mg DAILY YOKO Administration Metoclopramide HCl 5 mg 02/15/17 16:30 02/17/17 11:54 Reglan - PO Not Given TIDAC YOKO Mirtazapine 7.5 mg 02/15/17 22:00 02/16/17 21:58 Remeron - PO 7.5 mg HS YOKO Administration Miscellaneous 1 each 02/15/17 10:48 Duragesic Patch Waste TD PRN PRN PAIN Ondansetron HCl 4 mg 02/14/17 18:38 Zofran Injection IVPB Q6H PRN NAUSEA Oxycodone HCl 10 mg 02/13/17 12:43 02/16/17 06:40 Roxicodone - PO 10 mg Q4H PRN Administration PAIN Pantoprazole Sodium 40 mg 02/12/17 22:00 02/17/17 09:50 Protonix - PO 40 mg DAILY YOKO Administration Polyethylene Glycol 17 gm 02/13/17 16:15 02/17/17 09:51 Miralax (For Daily Use) - PO 17 gm DAILY YOKO Administration CBC, BMP 02/17/17 09:45 02/17/17 09:45 56 Y/O male with Hx of NHL treated previously with CHOP in 2003 and new intra- abdominal/retroperitoneal LND Likely a recurrence of his past Lymphoma or a new lymphoma, very less likely other malignancies. Abdominal/Retroperitoneal LAD Abdominal pain Fever Constipation Abnormal Thyroid function tests DM -will f.u LN biopsy results -hepatitis panel reviewed -ECHO- wnl -fever, likely from lymphoma,cultures negative thus far. -pain is well controlled -had a bowel movement this am -consider endocrine consult for abnormal TFTs -monitor sugars, on insulin will follow
[2017-02-17] MEDS ORDERED: morphine CARPU-JECT 4 MG/1 ML DISP.SYRIN IVPUSH PRN (19:38)
--- NOTE | 2017-02-17 20:10 | PN ---
Teaching Attending Note Name of Resident: Pablito Joyner ATTENDING PHYSICIAN STATEMENT I saw and evaluated the patient. I reviewed the resident's note and discussed the case with the resident. I agree with the resident's findings and plan as documented. SUBJECTIVE: OBJECTIVE: Vital Signs Temperature 99.4 F 02/17/17 18:05 Pulse Rate 112 H 02/17/17 18:05 Respiratory Rate 20 02/17/17 18:05 Blood Pressure 124/91 02/17/17 18:05 O2 Sat by Pulse Oximetry (%) 97 02/17/17 09:00 CBCD WBC 6.3 K/mm3 (4.0-10.0) 02/17/17 09:45 RBC 4.52 M/mm3 (4.00-5.60) 02/17/17 09:45 Hgb 12.7 GM/dL (11.7-16.9) 02/17/17 09:45 Hct 38.0 % (35.4-49) 02/17/17 09:45 MCV 84.0 fl (80-96) 02/17/17 09:45 MCHC 33.4 g/dl (32.0-35.9) 02/17/17 09:45 RDW 14.1 % (11.9-15.9) 02/17/17 09:45 Plt Count 275 K/MM3 (134-434) D 02/17/17 09:45 MPV 7.1 fl (7.5-11.1) L 02/17/17 09:45 CMP Sodium 133 mmol/L (136-145) L 02/17/17 09:45 Potassium 4.1 mmol/L (3.5-5.1) 02/17/17 09:45 Chloride 96 mmol/L (98-107) L 02/17/17 09:45 Carbon Dioxide 30 mmol/L (21-32) 02/17/17 09:45 Anion Gap 7 (8-16) L 02/17/17 09:45 BUN 15 mg/dL (7-18) 02/17/17 09:45 Creatinine 1.1 mg/dL (0.7-1.3) D 02/17/17 09:45 Creat Clearance w eGFR > 60 (>60) 02/17/17 09:45 Random Glucose 209 mg/dL (74-106) H D 02/17/17 09:45 Calcium 8.3 mg/dL (8.5-10.1) L 02/17/17 09:45 Total Bilirubin 0.7 mg/dL (0.2-1.0) 02/17/17 09:45 AST 30 U/L (15-37) D 02/17/17 09:45 ALT 23 U/L (12-78) D 02/17/17 09:45 Alkaline Phosphatase 106 U/L (45-117) 02/17/17 09:45 Total Protein 7.0 g/dl (6.4-8.2) 02/17/17 09:45 Albumin 2.8 g/dl (3.4-5.0) L 02/17/17 09:45 Current Medications Generic Name Dose Route Start Last Admin Trade Name Freq PRN Reason Stop Dose Admin Docusate Sodium 100 mg 02/13/17 12:42 02/16/17 10:11 Colace - PO 100 mg BID PRN Administration CONSTIPATION Fentanyl 1 patch 02/15/17 11:00 02/15/17 15:05 Duragesic 50mcg Patch - TD 02/22/17 10:48 1 patch Q72H YOKO Administration Heparin Sodium (Porcine) 5,000 unit 02/13/17 14:00 02/17/17 15:43 Heparin - SQ 5,000 unit TID YOKO Administration Insulin Aspart 1 vial 02/13/17 16:30 02/17/17 17:39 Novolog Vial Sliding Scale - SQ 4 units TIDAC YOKO Administration Protocol Methylnaltrexone [place] 12 mg 02/14/17 18:45 02/17/17 09:51 Relistor - SQ 12 mg DAILY YOKO Administration Metoclopramide HCl 5 mg 02/15/17 16:30 02/17/17 17:39 Reglan - PO Not Given TIDAC YOKO Mirtazapine 7.5 mg 02/15/17 22:00 02/16/17 21:58 Remeron - PO 7.5 mg HS YOKO Administration Miscellaneous 1 each 02/15/17 10:48 Duragesic Patch Waste TD PRN PRN PAIN Morphine Sulfate 2 mg 02/17/17 19:38 Morphine Injection - IVPUSH Q4H PRN Ondansetron HCl 4 mg 02/14/17 18:38 Zofran Injection IVPB Q6H PRN NAUSEA Oxycodone HCl 10 mg 02/13/17 12:43 02/16/17 06:40 Roxicodone - PO 10 mg Q4H PRN Administration PAIN Pantoprazole Sodium 40 mg 02/12/17 22:00 02/17/17 09:50 Protonix - PO 40 mg DAILY YOKO Administration Polyethylene Glycol 17 gm 02/13/17 16:15 02/17/17 09:51 Miralax (For Daily Use) - PO 17 gm DAILY YOKO Administration Home Medications Medication Instructions Recorded Pantoprazole Sodium [Protonix -] 20 mg PO DAILY 02/08/17 Oxycodone HCl/Acetaminophen 1 - 2 tab PO Q6H #20 tablet MDD 4 02/09/17 [Percocet 5-325 mg Tablet] Metformin HCl [Metformin HCl ER] 500 mg PO DAILY 02/12/17 Ondansetron HCl [Zofran] 4 mg PO BID 02/14/17 PE: per resident's note ASSESSMENT AND PLAN: 56 y/o man with h/o NHL, s/p chemo in 2003 , now in remision and MM II , who presented with abdominal pain . # Abdominal pain most likely due to recurrent lymphoma increased fentanyl patch to 50 mcg /3 days , continue oxycodone for breakthrough pain # Possible recurrence of NHL. Lymph node Bx performed yesterday . waiting for BX result. CT of chest with no mediastinal LAP. axillary lymph nodes noted pre-chemo Echo , pending follow the result . BM BX and treatment as outpt # DM II: Cont SSI while here # COnstipation : cont ralistor and other laxatives. # s/p N/V . imrpoved , cont current management DVT Px; Heparin
[2017-02-17] MEDS: MIRTAZAPINE 15 MG TABLET (FP) PO SCH (21:13)
[2017-02-18] MEDS: HEPARIN NA (PORCINE) 5,000 UNITS/ML 1ML VIAL SQ SCH ×3 (06:07→22:21)
[2017-02-18] MEDS: METOCLOPRAMIDE HCL 10 MG TABLET (FP) PO SCH ×3 (06:08→17:21)
[2017-02-18] MEDS: INSULIN SLIDING SCALE (NOVOLOG) 1 VIAL SQ SCH ×3 (06:08→17:20)
[2017-02-18 08:26] LABS: BASOPHIL 0.6 % (0-2.0); EOSINOPHIL 10.2 % (0-4.5); MCH 28.4 pg (25.7-33.7); MCHC 33.7 g/dl (32.0-35.9); MEAN CELL VOLUME 84.4 fl (80-96); MEAN PLT VOLUME 7.2 fl (7.5-11.1); NEUTROPHILS 53.4 % (42.8-82.8); PLATELET COUNT 266 K/MM3 (134-434); RDW 14.1 % (11.9-15.9); WHITE BLOOD COUNT 5.9 K/mm3 (4.0-10.0)
[2017-02-18 08:42] LABS: ANION GAP 4 (8-16); CALCIUM 8.4 mg/dL (8.5-10.1); CO2 34 mmol/L (21-32); CREATININE 0.9 mg/dL (0.7-1.3); GLUCOSE,RANDOM 162 mg/dL (74-106)
[2017-02-18] MEDS ORDERED: PT OWN MED DRAWER 7, Y5N ONE ×2 (11:44→21:14)
[2017-02-18] MEDS: fentaNYL 50mcg/hr PATCH.TD72 TD SCH ×2 (11:46→19:03)
[2017-02-18] MEDS: POLYETHYLENE GLYCOL 3350 119 GM BTL PO SCH (11:48)
[2017-02-18] MEDS: oxyCODONE HCL 5 MG TABLET PO PRN (11:49)
[2017-02-18] MEDS: Methylnaltrexone Bromide 12 MG/0.6 ML KIT SQ SCH (11:50)
[2017-02-18] MEDS: PANTOPRAZOLE 40 MG TABLET (FP) PO SCH (11:52)
--- NOTE | 2017-02-18 12:58 | PN ---
Physical Exam: SUBJECTIVE: Patient seen and examined OBJECTIVE: Vital Signs Period Temp Pulse Resp BP Sys/Hutchison Pulse Ox Last 24 Hr 98 F-99.4 F 94-112 20-20 124-152/83-96 96 GENERAL: The patient is awake, alert, and fully oriented, in no acute distress. HEAD: Normal with no signs of trauma. EYES: PERRL, extraocular movements intact, sclera anicteric, conjunctiva clear. No ptosis. ENT: Ears normal, nares patent, oropharynx clear without exudates, moist mucous membranes. NECK: Trachea midline, full range of motion, supple. LUNGS: Breath sounds equal, clear to auscultation bilaterally, no wheezes, no crackles, no accessory muscle use. HEART: Regular rate and rhythm, S1, S2 without murmur, rub or gallop. ABDOMEN: Soft, nontender, nondistended, normoactive bowel sounds, no guarding, no rebound, no hepatosplenomegaly, no masses. EXTREMITIES: 2+ pulses, warm, well-perfused, no edema. NEUROLOGICAL: Cranial nerves II through XII grossly intact. Normal speech, gait not observed. PSYCH: Normal mood, normal affect. SKIN: Warm, dry, normal turgor, no rashes or lesions noted Laboratory Results - last 24 hr 02/17/17 02/17/17 02/17/17 06:00 16:00 17:19 WBC RBC Hgb Hct MCV MCH MCHC RDW Plt Count MPV Neutrophils % Lymphocytes % Monocytes % Eosinophils % Basophils % Sodium Potassium Chloride Carbon Dioxide Anion Gap BUN Creatinine POC Glucometer 226 Random Glucose Calcium Free T3 2.3 Urine Color Yellow Urine Appearance Clear Urine pH 5.0 Ur Specific [place] 1.020 Urine Protein Negative Urine Glucose (UA) 1+ H Urine Ketones Negative Urine Blood 1+ H Urine Nitrite Negative Urine Bilirubin Negative Urine Urobilinogen Negative Ur Leukocyte Esterase Negative Urine RBC 1 Urine WBC 3 Urine Bacteria Rare Hyaline Casts 1 Urine Mucus Few 02/17/17 02/18/17 02/18/17 20:21 05:59 06:10 WBC 5.9 RBC 3.97 L Hgb 11.3 L D Hct 33.5 L MCV 84.4 MCH 28.4 MCHC 33.7 RDW 14.1 Plt Count 266 MPV 7.2 L Neutrophils % 53.4 Lymphocytes % 24.9 Monocytes % 10.9 H Eosinophils % 10.2 H Basophils % 0.6 Sodium Potassium Chloride Carbon Dioxide Anion Gap BUN Creatinine POC Glucometer 204 162 Random Glucose Calcium Free T3 Urine Color Urine Appearance Urine pH Ur Specific [place] Urine Protein Urine Glucose (UA) Urine Ketones Urine Blood Urine Nitrite Urine Bilirubin Urine Urobilinogen Ur Leukocyte Esterase Urine RBC Urine WBC Urine Bacteria Hyaline Casts Urine Mucus 02/18/17 02/18/17 06:10 11:51 WBC RBC Hgb Hct MCV MCH MCHC RDW Plt Count MPV Neutrophils % Lymphocytes % Monocytes % Eosinophils % Basophils % Sodium 135 L Potassium 4.8 Chloride 97 L Carbon Dioxide 34 H Anion Gap 4 L BUN 11 D Creatinine 0.9 POC Glucometer 142 Random Glucose 162 H D Calcium 8.4 L Free T3 Urine Color Urine Appearance Urine pH Ur Specific [place] Urine Protein Urine Glucose (UA) Urine Ketones Urine Blood Urine Nitrite Urine Bilirubin Urine Urobilinogen Ur Leukocyte Esterase Urine RBC Urine WBC Urine Bacteria Hyaline Casts Urine Mucus Active Medications Generic Name Dose Route Start Last Admin Trade Name Freq PRN Reason Stop Dose Admin Docusate Sodium 100 mg 02/13/17 12:42 02/16/17 10:11 Colace - PO 100 mg BID PRN Administration CONSTIPATION Fentanyl 1 patch 02/15/17 11:00 02/18/17 11:46 Duragesic 50mcg Patch - TD 02/22/17 10:48 1 patch Q72H [facility] Administration Heparin Sodium (Porcine) 5,000 unit 02/13/17 14:00 02/18/17 06:07 Heparin - SQ Not Given TID [facility] Insulin Aspart 1 vial 02/13/17 16:30 02/18/17 11:52 Novolog Vial Sliding Scale - SQ Not Given TIDAC [facility] Protocol Methylnaltrexone [place] 12 mg 02/14/17 18:45 02/18/17 11:50 Relistor - SQ 12 mg DAILY YOKO Administration Metoclopramide HCl 5 mg 02/15/17 16:30 02/18/17 11:49 Reglan - PO 5 mg TIDAC YOKO Administration Mirtazapine 7.5 mg 02/15/17 22:00 02/17/17 21:13 Remeron - PO 7.5 mg HS YOKO Administration Miscellaneous 1 each 02/15/17 10:48 Duragesic Patch Waste TD PRN PRN PAIN Morphine Sulfate 2 mg 02/17/17 19:38 Morphine Injection - IVPUSH Q4H PRN Ondansetron HCl 4 mg 02/14/17 18:38 Zofran Injection IVPB Q6H PRN NAUSEA Oxycodone HCl 10 mg 02/13/17 12:43 02/18/17 11:49 Roxicodone - PO 10 mg Q4H PRN Administration PAIN Pantoprazole Sodium 40 mg 02/12/17 22:00 02/18/17 11:52 Protonix - PO 40 mg DAILY YOKO Administration Polyethylene Glycol 17 gm 02/13/17 16:15 02/18/17 11:48 Miralax (For Daily Use) - PO 17 gm DAILY YOKO Administration ASSESSMENT/PLAN: 56y/o M with PMHx PMH nonhodgkin's lymphoma (treated with Cyclophosphamide, Vincristine in remission since 2003), NIDDM on metformin, gastritis (on Ranitidine, Omeprazole, Prevacid), who presented to the ED with diffuse abdominal pain. Pt has recent CT abdomen showing diffuse peritoneal lymphadenitis. #Abdominal pain -likely 2/2 diffuse peritoneal lymphadenitis -Fentanyl -Oxycodone #Peritoneal LAD -likely recurrence of NHL -CT chest showed no LAD. showed axillary LN -Echo: normal EF. 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 Subtype pending -BM Bx to be done outpt #Fever/Tachy -likely due to LAD -TSH 6.80, T4 1.32, T3 2.3 -BCx, UCx, UA negative -TTE cannot rule out vegetations. Pending STEPHAN. #Gastritis -Protonix #DM -Novolog ISS #Constipation -laxitives, enemas per GI #FEN -not on fluids -lytes wnl -diabetic diet #PPX -heparin SubQ -Protonix #Dispo -Admit to med/surg Pablito Joyner MD PGY-1 Visit type - Emergency Visit Emergency Visit: Yes ED Registration Date: 02/12/17 Care time: The patient presented to the Emergency Department on the above date and was hospitalized for further evaluation of their emergent condition. - New Patient This patient is new to me today: No - Critical Care Critical Care patient: No - Discharge Referral Referred to [facility] Med P.C.: No
--- NOTE | 2017-02-18 16:16 | PN ---
Progress Note (short form) - Note Progress Note: Patient seen and examined. sister at bedside Cardiology consulted pt walking around O/E In NAD Could not appreciate any LAD in the neck/axillary region Abdomen: No organomegaly noted Cor: RRR Lungs:CTA b/l LE: No swelling noted. Last Vital Signs Temp Pulse Resp BP Pulse Ox 98.5 F 89 20 120/83 96 02/18/17 15:04 02/18/17 15:04 02/18/17 15:04 02/18/17 15:04 02/17/17 20:18 CBC, BMP 02/18/17 06:10 02/18/17 06:10 Current Medications Generic Name Dose Route Start Last Admin Trade Name Freq PRN Reason Stop Dose Admin Docusate Sodium 100 mg 02/13/17 12:42 02/16/17 10:11 Colace - PO 100 mg BID PRN Administration CONSTIPATION Fentanyl 1 patch 02/15/17 11:00 02/18/17 11:46 Duragesic 50mcg Patch - TD 02/22/17 10:48 1 patch Q72H YOKO Administration Heparin Sodium (Porcine) 5,000 unit 02/13/17 14:00 02/18/17 14:57 Heparin - SQ 5,000 unit TID YOKO Administration Insulin Aspart 1 vial 02/13/17 16:30 02/18/17 11:52 Novolog Vial Sliding Scale - SQ Not Given TIDAC YOKO Protocol Methylnaltrexone [place] 12 mg 02/14/17 18:45 02/18/17 11:50 Relistor - SQ 12 mg DAILY YOKO Administration Metoclopramide HCl 5 mg 02/15/17 16:30 02/18/17 11:49 Reglan - PO 5 mg TIDAC YOKO Administration Mirtazapine 7.5 mg 02/15/17 22:00 02/17/17 21:13 Remeron - PO 7.5 mg HS YOKO Administration Miscellaneous 1 each 02/15/17 10:48 Duragesic Patch Waste TD PRN PRN PAIN Morphine Sulfate 2 mg 02/17/17 19:38 Morphine Injection - IVPUSH Q4H PRN Ondansetron HCl 4 mg 02/14/17 18:38 Zofran Injection IVPB Q6H PRN NAUSEA Oxycodone HCl 10 mg 02/13/17 12:43 02/18/17 11:49 Roxicodone - PO 10 mg Q4H PRN Administration PAIN Pantoprazole Sodium 40 mg 02/12/17 22:00 02/18/17 11:52 Protonix - PO 40 mg DAILY YOKO Administration Polyethylene Glycol 17 gm 02/13/17 16:15 02/18/17 11:48 Miralax (For Daily Use) - PO 17 gm DAILY YOKO Administration 56 Y/O male with Hx of 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
[2017-02-18] MEDS: FENTANYL PATCH WASTE TD PRN (19:01)
--- NOTE | 2017-02-18 20:10 | PN ---
Teaching Attending Note Name of Resident: Pablito Joyner ATTENDING PHYSICIAN STATEMENT I saw and evaluated the patient. I reviewed the resident's note and discussed the case with the resident. I agree with the resident's findings and plan as documented. SUBJECTIVE: Patient is comfortable with no acute distress. OBJECTIVE: Vital Signs Temperature 98.4 F 02/18/17 18:20 Pulse Rate 74 02/18/17 18:20 Respiratory Rate 18 02/18/17 18:20 Blood Pressure 127/79 02/18/17 18:20 O2 Sat by Pulse Oximetry (%) 97 02/18/17 09:00 CBCD WBC 5.9 K/mm3 (4.0-10.0) 02/18/17 06:10 RBC 3.97 M/mm3 (4.00-5.60) L 02/18/17 06:10 Hgb 11.3 GM/dL (11.7-16.9) L D 02/18/17 06:10 Hct 33.5 % (35.4-49) L 02/18/17 06:10 MCV 84.4 fl (80-96) 02/18/17 06:10 MCHC 33.7 g/dl (32.0-35.9) 02/18/17 06:10 RDW 14.1 % (11.9-15.9) 02/18/17 06:10 Plt Count 266 K/MM3 (134-434) 02/18/17 06:10 MPV 7.2 fl (7.5-11.1) L 02/18/17 06:10 CMP Sodium 135 mmol/L (136-145) L 02/18/17 06:10 Potassium 4.8 mmol/L (3.5-5.1) 02/18/17 06:10 Chloride 97 mmol/L (98-107) L 02/18/17 06:10 Carbon Dioxide 34 mmol/L (21-32) H 02/18/17 06:10 Anion Gap 4 (8-16) L 02/18/17 06:10 BUN 11 mg/dL (7-18) D 02/18/17 06:10 Creatinine 0.9 mg/dL (0.7-1.3) 02/18/17 06:10 Creat Clearance w eGFR > 60 (>60) 02/17/17 09:45 Random Glucose 162 mg/dL (74-106) H D 02/18/17 06:10 Calcium 8.4 mg/dL (8.5-10.1) L 02/18/17 06:10 Total Bilirubin 0.7 mg/dL (0.2-1.0) 02/17/17 09:45 AST 30 U/L (15-37) D 02/17/17 09:45 ALT 23 U/L (12-78) D 02/17/17 09:45 Alkaline Phosphatase 106 U/L (45-117) 02/17/17 09:45 Total Protein 7.0 g/dl (6.4-8.2) 02/17/17 09:45 Albumin 2.8 g/dl (3.4-5.0) L 02/17/17 09:45 Current Medications Generic Name Dose Route Start Last Admin Trade Name Freq PRN Reason Stop Dose Admin Docusate Sodium 100 mg 02/13/17 12:42 02/16/17 10:11 Colace - PO 100 mg BID PRN Administration CONSTIPATION Fentanyl 1 patch 02/15/17 11:00 02/18/17 19:03 Duragesic 50mcg Patch - TD 02/22/17 10:48 1 patch Q72H YOKO Administration Heparin Sodium (Porcine) 5,000 unit 02/13/17 14:00 02/18/17 14:57 Heparin - SQ 5,000 unit TID YOKO Administration Insulin Aspart 1 vial 02/13/17 16:30 02/18/17 17:20 Novolog Vial Sliding Scale - SQ 4 units TIDAC YOKO Administration Protocol Methylnaltrexone [place] 12 mg 02/14/17 18:45 02/18/17 11:50 Relistor - SQ 12 mg DAILY YOKO Administration Metoclopramide HCl 5 mg 02/15/17 16:30 02/18/17 17:21 Reglan - PO 5 mg TIDAC YOKO Administration Mirtazapine 7.5 mg 02/15/17 22:00 02/17/17 21:13 Remeron - PO 7.5 mg HS YOKO Administration Miscellaneous 1 each 02/15/17 10:48 02/18/17 19:01 Duragesic Patch Waste TD 1 each PRN PRN Administration PAIN Morphine Sulfate 2 mg 02/17/17 19:38 Morphine Injection - IVPUSH Q4H PRN Ondansetron HCl 4 mg 07/31/17 18:38 Zofran Injection IVPB Q6H PRN NAUSEA Oxycodone HCl 10 mg 02/13/17 12:43 02/18/17 11:49 Roxicodone - PO 10 mg Q4H PRN Administration PAIN Pantoprazole Sodium 40 mg 02/12/17 22:00 02/18/17 11:52 Protonix - PO 40 mg DAILY YOKO Administration Polyethylene Glycol 17 gm 02/13/17 16:15 02/18/17 11:48 Miralax (For Daily Use) - PO 17 gm DAILY YOKO Administration Home Medications Medication Instructions Recorded Pantoprazole Sodium [Protonix -] 20 mg PO DAILY 02/08/17 Oxycodone HCl/Acetaminophen 1 - 2 tab PO Q6H #20 tablet MDD 4 02/09/17 [Percocet 5-325 mg Tablet] Metformin HCl [Metformin HCl ER] 500 mg PO DAILY 02/12/17 Ondansetron HCl [Zofran] 4 mg PO BID 02/14/17 PE: per resident's note ASSESSMENT AND PLAN: 56 y/o man with h/o NHL, s/p chemo in 2003 , 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 # Abdominal pain resolved post increasing fentanyl patch to 50 mcg /3 days due to recurrence of NHL , continue oxycodone for breakthrough pain Bx prelim. 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 Going for STEPHAN on Tuesday. # Possible recurrence of NHL. Lymph node Bx performed yesterday . waiting for BX result. CT of chest with no mediastinal LAP. axillary lymph nodes noted pre-chemo Echo , pending follow the result . BM BX and treatment as outpt # DM II: Cont SSI while here # Constipation : cont ralistor and other laxatives. # s/p N/V . imrpoved , cont current management DVT Px; Heparin STEPHAN on Tuesday
[2017-02-18] MEDS: MIRTAZAPINE 15 MG TABLET (FP) PO SCH (22:21)
[2017-02-19] MEDS: HEPARIN NA (PORCINE) 5,000 UNITS/ML 1ML VIAL SQ SCH ×3 (06:46→21:33)
[2017-02-19] MEDS: METOCLOPRAMIDE HCL 10 MG TABLET (FP) PO SCH ×3 (06:46→17:28)
[2017-02-19] MEDS: INSULIN SLIDING SCALE (NOVOLOG) 1 VIAL SQ SCH ×3 (06:46→17:29)
[2017-02-19 07:39] LABS: BASOPHIL 0.6 % (0-2.0); EOSINOPHIL 10.6 % (0-4.5); MCH 28.3 pg (25.7-33.7); MCHC 33.4 g/dl (32.0-35.9); MEAN CELL VOLUME 84.7 fl (80-96); MEAN PLT VOLUME 7.1 fl (7.5-11.1); PLATELET COUNT 285 K/MM3 (134-434); RDW 14.1 % (11.9-15.9); WHITE BLOOD COUNT 4.8 K/mm3 (4.0-10.0)
[2017-02-19 08:10] LABS: ALBUMIN 2.5 g/dl (3.4-5.0); ANION GAP 7 (8-16); BILIRUBIN,TOTAL 0.4 mg/dL (0.2-1.0); CALCIUM 8.6 mg/dL (8.5-10.1); CO2 34 mmol/L (21-32); CREATININE 0.8 mg/dL (0.7-1.3); GLUCOSE,RANDOM 189 mg/dL (74-106); SGOT/AST 21 U/L (15-37); SGPT/ALT 19 U/L (12-78); TOT PROT 6.4 g/dl (6.4-8.2)
[2017-02-19 08:11] LABS: ALK PHOS 91 U/L (45-117)
[2017-02-19] MEDS ORDERED: PT OWN MED DRAWER 7, Y5N ONE ×2 (09:35→21:13)
[2017-02-19] MEDS: PANTOPRAZOLE 40 MG TABLET (FP) PO SCH (09:39)
[2017-02-19] MEDS: Methylnaltrexone Bromide 12 MG/0.6 ML KIT SQ SCH (09:40)
[2017-02-19] MEDS: POLYETHYLENE GLYCOL 3350 119 GM BTL PO SCH (09:47)
--- NOTE | 2017-02-19 12:28 | PN ---
Progress Note (short form) - Note Progress Note: Progress Note (short form) - Note Progress Note: Patient seen and examined. O/E In NAD Could not appreciate any LAD in the neck/axillary region Abdomen: No organomegaly noted Cor: RRR Lungs:CTA b/l LE: No swelling noted. Vital Signs Period Temp Pulse Resp BP Sys/Hutchison Pulse Ox Last 24 Hr 98.2 F-98.6 F 74-97 18-20 113-142/79-91 97 CBC, BMP 02/19/17 06:00 02/19/17 06:00 Active Medications Generic Name Dose Route Start Last Admin Trade Name Freq PRN Reason Stop Dose Admin Docusate Sodium 100 mg 02/13/17 12:42 02/16/17 10:11 Colace - PO 100 mg BID PRN Administration CONSTIPATION Fentanyl 1 patch 02/15/17 11:00 02/18/17 19:03 Duragesic 50mcg Patch - TD 02/22/17 10:48 1 patch Q72H YOKO Administration Heparin Sodium (Porcine) 5,000 unit 02/13/17 14:00 02/19/17 06:46 Heparin - SQ 5,000 unit TID YOKO Administration Insulin Aspart 1 vial 02/13/17 16:30 02/19/17 11:57 Novolog Vial Sliding Scale - SQ 4 units TIDAC YOKO Administration Protocol Methylnaltrexone [place] 12 mg 02/14/17 18:45 02/19/17 09:40 Relistor - SQ 12 mg DAILY YOKO Administration Metoclopramide HCl 5 mg 02/15/17 16:30 02/19/17 06:46 Reglan - PO 5 mg TIDAC YOKO Administration Mirtazapine 7.5 mg 02/15/17 22:00 02/18/17 22:21 Remeron - PO 7.5 mg HS YOKO Administration Miscellaneous 1 each 02/15/17 10:48 02/18/17 19:01 Duragesic Patch Waste TD 1 each PRN PRN Administration PAIN Morphine Sulfate 2 mg 02/17/17 19:38 Morphine Injection - IVPUSH Q4H PRN Ondansetron HCl 4 mg 02/14/17 18:38 02/19/17 09:39 Zofran Injection IVPB 4 mg Q6H PRN Administration NAUSEA Oxycodone HCl 10 mg 02/13/17 12:43 02/18/17 11:49 Roxicodone - PO 10 mg Q4H PRN Administration PAIN Pantoprazole Sodium 40 mg 02/12/17 22:00 02/19/17 09:39 Protonix - PO 40 mg DAILY YOKO Administration Polyethylene Glycol 17 gm 02/13/17 16:15 02/19/17 09:47 Miralax (For Daily Use) - PO 17 gm DAILY YOKO Administration 56 Y/O male with Hx of NHL (as per report anaplastic Large cell Lymphoma) treated previously with CHOP in 2003 and new intra-abdominal/retroperitoneal LND Abdominal/Retroperitoneal LAD, likely recurrence of NHL Abdominal pain Fever Constipation Abnormal Thyroid function tests DM Type II -needs STEPHAN for evalaution for mitral valve vegitation- -Echo -discussed treatment with the family will follow
[2017-02-19] MEDS: MIRTAZAPINE 15 MG TABLET (FP) PO SCH (21:32)
[2017-02-19] MEDS ORDERED: guaiFENesin 200 MG/10 ML 10 ML UNIT-DOSE CUPS PO ONE (21:44)
--- NOTE | 2017-02-19 22:31 | PN ---
Physical Exam: SUBJECTIVE: Patient seen and examined comfortable with acute distress, no shortness fo breath OBJECTIVE: Vital Signs Temperature 97.4 F L 02/19/17 19:06 Pulse Rate 93 H 02/19/17 19:06 Respiratory Rate 18 02/19/17 19:06 Blood Pressure 135/89 02/19/17 19:06 O2 Sat by Pulse Oximetry (%) 98 02/19/17 09:00 GENERAL: The patient is awake, alert, and fully oriented, in no acute distress. [place] HEAD: Normal with no signs of trauma. EYES: PERRL, extraocular movements intact, sclera anicteric, conjunctiva clear. ENT: Ears normal, oropharynx clear without exudates, moist mucous membranes. NECK: Trachea midline, full range of motion, supple. LUNGS: Breath sounds equal, clear to auscultation bilaterally, no wheezes, no crackles, no accessory muscle use. HEART: Regular rate and rhythm, S1, S2 without murmur, rub or gallop. ABDOMEN: Soft, nontender, nondistended, normoactive bowel sounds, no guarding, no rebound, no hepatosplenomegaly, no masses. EXTREMITIES: 2+ pulses, warm, well-perfused, no edema. NEUROLOGICAL: Cranial nerves II through XII grossly intact. Normal speech, gait is stable . PSYCH: Normal mood, normal affect. SKIN: Warm, dry, normal turgor, no rashes or lesions noted Laboratory Results - last 24 hr 02/19/17 02/19/17 02/19/17 05:44 06:00 06:00 WBC 4.8 RBC 3.82 L Hgb 10.8 L Hct 32.3 L MCV 84.7 MCH 28.3 MCHC 33.4 RDW 14.1 Plt Count 285 MPV 7.1 L Neutrophils % 54.0 Lymphocytes % 24.0 Monocytes % 10.8 H Eosinophils % 10.6 H Basophils % 0.6 Sodium 137 Potassium 4.8 Chloride 96 L Carbon Dioxide 34 H Anion Gap 7 L BUN 9 Creatinine 0.8 Creat Clearance w eGFR > 60 POC Glucometer 207 Random Glucose 189 H Calcium 8.6 Total Bilirubin 0.4 D AST 21 D ALT 19 Alkaline Phosphatase 91 Total Protein 6.4 Albumin 2.5 L 02/19/17 02/19/17 02/19/17 11:55 17:27 21:35 WBC RBC Hgb Hct MCV MCH MCHC RDW Plt Count MPV Neutrophils % Lymphocytes % Monocytes % Eosinophils % Basophils % Sodium Potassium Chloride Carbon Dioxide Anion Gap BUN Creatinine Creat Clearance w eGFR POC Glucometer 225 186 234 Random Glucose Calcium Total Bilirubin AST ALT Alkaline Phosphatase Total Protein Albumin Active Medications Generic Name Dose Route Start Last Admin Trade Name Freq PRN Reason Stop Dose Admin Docusate Sodium 100 mg 02/13/17 12:42 02/16/17 10:11 Colace - PO 100 mg BID PRN Administration CONSTIPATION Fentanyl 1 patch 02/15/17 11:00 02/18/17 19:03 Duragesic 50mcg Patch - TD 02/22/17 10:48 1 patch Q72H YOKO Administration Heparin Sodium (Porcine) 5,000 unit 02/13/17 14:00 02/19/17 21:33 Heparin - SQ 5,000 unit TID YOKO Administration Insulin Aspart 1 vial 02/13/17 16:30 02/19/17 17:29 Novolog Vial Sliding Scale - SQ 2 units TIDAC YOKO Administration Protocol Methylnaltrexone [place] 12 mg 02/14/17 18:45 02/19/17 09:40 Relistor - SQ 12 mg DAILY YOKO Administration Metoclopramide HCl 5 mg 02/15/17 16:30 02/19/17 17:28 Reglan - PO 5 mg TIDAC YOKO Administration Mirtazapine 7.5 mg 02/15/17 22:00 02/19/17 21:32 Remeron - PO 7.5 mg HS YOKO Administration Miscellaneous 1 each 02/15/17 10:48 02/18/17 19:01 Duragesic Patch Waste TD 1 each PRN PRN Administration PAIN Morphine Sulfate 2 mg 02/17/17 19:38 Morphine Injection - IVPUSH Q4H PRN Ondansetron HCl 4 mg 02/14/17 18:38 02/19/17 09:39 Zofran Injection IVPB 4 mg Q6H PRN Administration NAUSEA Oxycodone HCl 10 mg 02/13/17 12:43 02/18/17 11:49 Roxicodone - PO 10 mg Q4H PRN Administration PAIN Pantoprazole Sodium 40 mg 02/12/17 22:00 02/19/17 09:39 Protonix - PO 40 mg DAILY YOKO Administration Polyethylene Glycol 17 gm 02/13/17 16:15 02/19/17 09:47 Miralax (For Daily Use) - PO 17 gm DAILY YOKO Administration ASSESSMENT/PLAN: 56 y/o man with h/o NHL, s/p chemo in 2003 , 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 # Abdominal pain stable now post increasing fentanyl patch to 50 mcg /3 days due to recurrence of NHL , continue oxycodone for breakthrough pain Bx prelim. 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 Going for STEPHAN on Tuesday. # Possible recurrence of NHL. Lymph node Bx performed yesterday . waiting for BX result. CT of chest with no mediastinal LAP. axillary lymph nodes noted pre-chemo Echo , pending follow the result . BM BX and treatment as outpt # DM II: Cont SSI while here # Constipation : cont ralistor and other laxatives. # s/p N/V . imrpoved , cont current management DVT Px; Heparin needs STEPHAN for evalaution for mitral valve vegitation-scheduled for Tuesday Visit type - Emergency Visit Emergency Visit: Yes ED Registration Date: 02/12/17 Care time: The patient presented to the Emergency Department on the above date and was hospitalized for further evaluation of their emergent condition. - New Patient This patient is new to me today: No - Critical Care Critical Care patient: No
[2017-02-20] MEDS: HEPARIN NA (PORCINE) 5,000 UNITS/ML 1ML VIAL SQ SCH ×3 (06:48→22:16)
[2017-02-20] MEDS: METOCLOPRAMIDE HCL 10 MG TABLET (FP) PO SCH ×3 (06:49→17:21)
[2017-02-20] MEDS: INSULIN SLIDING SCALE (NOVOLOG) 1 VIAL SQ SCH ×3 (06:49→17:21)
[2017-02-20] MEDS ORDERED: PT OWN MED DRAWER 7, Y5N ONE ×2 (09:00→20:10)
[2017-02-20] MEDS: DOCUSATE SODIUM 100 MG CAPSULE (FP) PO PRN (09:16)
[2017-02-20] MEDS: Methylnaltrexone Bromide 12 MG/0.6 ML KIT SQ SCH (09:16)
[2017-02-20] MEDS: PANTOPRAZOLE 40 MG TABLET (FP) PO SCH (09:16)
[2017-02-20] MEDS: POLYETHYLENE GLYCOL 3350 119 GM BTL PO SCH (09:18)
--- NOTE | 2017-02-20 11:49 | PN ---
Progress Note (short form) - Note Progress Note: Progress Note (short form) - Note Progress Note: Patient seen sleeping well currently no overnight events chart reviewed Vital Signs Period Temp Pulse Resp BP Sys/Hutchison Pulse Ox Last 24 Hr 97.4 F-98.6 F 67-105 18-20 132-172/77-98 97 CBC, BMP 02/19/17 06:00 02/19/17 06:00 Active Medications Generic Name Dose Route Start Last Admin Trade Name Freq PRN Reason Stop Dose Admin Docusate Sodium 100 mg 02/13/17 12:42 02/20/17 09:16 Colace - PO 100 mg BID PRN Administration CONSTIPATION Fentanyl 1 patch 02/15/17 11:00 02/18/17 19:03 Duragesic 50mcg Patch - TD 02/22/17 10:48 1 patch Q72H YOKO Administration Heparin Sodium (Porcine) 5,000 unit 02/13/17 14:00 02/20/17 06:48 Heparin - SQ 5,000 unit TID YOKO Administration Insulin Aspart 1 vial 02/13/17 16:30 02/20/17 10:59 Novolog Vial Sliding Scale - SQ 2 units TIDAC YOKO Administration Protocol Methylnaltrexone [place] 12 mg 02/14/17 18:45 02/20/17 09:16 Relistor - SQ 12 mg DAILY YOKO Administration Metoclopramide HCl 5 mg 02/15/17 16:30 02/20/17 10:59 Reglan - PO 5 mg TIDAC YOKO Administration Mirtazapine 7.5 mg 02/15/17 22:00 02/19/17 21:32 Remeron - PO 7.5 mg HS YOKO Administration Miscellaneous 1 each 02/15/17 10:48 02/18/17 19:01 Duragesic Patch Waste TD 1 each PRN PRN Administration PAIN Morphine Sulfate 2 mg 02/17/17 19:38 Morphine Injection - IVPUSH Q4H PRN Ondansetron HCl 4 mg 02/14/17 18:38 02/19/17 09:39 Zofran Injection IVPB 4 mg Q6H PRN Administration NAUSEA Pantoprazole Sodium 40 mg 02/12/17 22:00 02/20/17 09:16 Protonix - PO 40 mg DAILY YOKO Administration Polyethylene Glycol 17 gm 02/13/17 16:15 02/20/17 09:18 Miralax (For Daily Use) - PO 17 gm DAILY YOKO Administration 56 Y/O male with Hx of NHL (as per report anaplastic Large cell Lymphoma) treated previously with CHOP in 2003 and new intra-abdominal/retroperitoneal LND Abdominal/Retroperitoneal LAD, likely recurrence of NHL Abdominal pain Fever Constipation Abnormal Thyroid function tests DM Type II -needs STEPHAN for evalaution for mitral valve vegitation- blood cx negative till date -yesterday I discussed treatment options with the family will follow
--- NOTE | 2017-02-20 14:02 | PN ---
Teaching Attending Note Name of Resident: Pablito Joyner ATTENDING PHYSICIAN STATEMENT I saw and evaluated the patient. I reviewed the resident's note and discussed the case with the resident. I agree with the resident's findings and plan as documented. SUBJECTIVE: Patient is c/o having cough, was given Robitussin helped his cough. In no acute distress. OBJECTIVE: Vital Signs Temperature 98.9 F 02/20/17 13:54 Pulse Rate 95 H 02/20/17 13:54 Respiratory Rate 20 02/20/17 13:54 Blood Pressure 141/94 02/20/17 13:54 O2 Sat by Pulse Oximetry (%) 97 02/20/17 09:18 CBCD WBC 4.8 K/mm3 (4.0-10.0) 02/19/17 06:00 RBC 3.82 M/mm3 (4.00-5.60) L 02/19/17 06:00 Hgb 10.8 GM/dL (11.7-16.9) L 02/19/17 06:00 Hct 32.3 % (35.4-49) L 02/19/17 06:00 MCV 84.7 fl (80-96) 02/19/17 06:00 MCHC 33.4 g/dl (32.0-35.9) 02/19/17 06:00 RDW 14.1 % (11.9-15.9) 02/19/17 06:00 Plt Count 285 K/MM3 (134-434) 02/19/17 06:00 MPV 7.1 fl (7.5-11.1) L 02/19/17 06:00 CMP Sodium 137 mmol/L (136-145) 02/19/17 06:00 Potassium 4.8 mmol/L (3.5-5.1) 02/19/17 06:00 Chloride 96 mmol/L (98-107) L 02/19/17 06:00 Carbon Dioxide 34 mmol/L (21-32) H 02/19/17 06:00 Anion Gap 7 (8-16) L 02/19/17 06:00 BUN 9 mg/dL (7-18) 02/19/17 06:00 Creatinine 0.8 mg/dL (0.7-1.3) 02/19/17 06:00 Creat Clearance w eGFR > 60 (>60) 02/19/17 06:00 Random Glucose 189 mg/dL (74-106) H 02/19/17 06:00 Calcium 8.6 mg/dL (8.5-10.1) 02/19/17 06:00 Total Bilirubin 0.4 mg/dL (0.2-1.0) D 02/19/17 06:00 AST 21 U/L (15-37) D 02/19/17 06:00 ALT 19 U/L (12-78) 02/19/17 06:00 Alkaline Phosphatase 91 U/L (45-117) 02/19/17 06:00 Total Protein 6.4 g/dl (6.4-8.2) 02/19/17 06:00 Albumin 2.5 g/dl (3.4-5.0) L 02/19/17 06:00 Current Medications Generic Name Dose Route Start Last Admin Trade Name Freq PRN Reason Stop Dose Admin Docusate Sodium 100 mg 02/13/17 12:42 02/20/17 09:16 Colace - PO 100 mg BID PRN Administration CONSTIPATION Fentanyl 1 patch 02/15/17 11:00 02/18/17 19:03 Duragesic 50mcg Patch - TD 02/22/17 10:48 1 patch Q72H YOKO Administration Insulin Aspart 1 vial 02/13/17 16:30 02/20/17 10:59 Novolog Vial Sliding Scale - SQ 2 units TIDAC YOKO Administration Protocol Methylnaltrexone [place] 12 mg 02/14/17 18:45 02/20/17 09:16 Relistor - SQ 12 mg DAILY YOKO Administration Metoclopramide HCl 5 mg 02/15/17 16:30 02/20/17 10:59 Reglan - PO 5 mg TIDAC YOKO Administration Mirtazapine 7.5 mg 02/15/17 22:00 02/19/17 21:32 Remeron - PO 7.5 mg HS YOKO Administration Miscellaneous 1 each 02/15/17 10:48 02/18/17 19:01 Duragesic Patch Waste TD 1 each PRN PRN Administration PAIN Morphine Sulfate 2 mg 02/17/17 19:38 Morphine Injection - IVPUSH Q4H PRN Ondansetron HCl 4 mg 02/14/17 18:38 02/19/17 09:39 Zofran Injection IVPB 4 mg Q6H PRN Administration NAUSEA Pantoprazole Sodium 40 mg 02/12/17 22:00 02/20/17 09:16 Protonix - PO 40 mg DAILY YOKO Administration Polyethylene Glycol 17 gm 02/13/17 16:15 02/20/17 09:18 Miralax (For Daily Use) - PO 17 gm DAILY YOKO Administration Home Medications Medication Instructions Recorded Pantoprazole Sodium [Protonix -] 20 mg PO DAILY 02/08/17 Oxycodone HCl/Acetaminophen 1 - 2 tab PO Q6H #20 tablet MDD 4 02/09/17 [Percocet 5-325 mg Tablet] Metformin HCl [Metformin HCl ER] 500 mg PO DAILY 02/12/17 Ondansetron HCl [Zofran] 4 mg PO BID 02/14/17 PE: per resident's note ASSESSMENT AND PLAN: 56 y/o man with h/o NHL, s/p chemo in 2003 , 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 # Cough ,on Robitussin now q8h prn. # Abdominal pain stable now post increasing fentanyl patch to 50 mcg /3 days due to recurrence of NHL , continue oxycodone for breakthrough pain Bx prelim. 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 Going for STEPHAN on Tuesday. # Possible recurrence of NHL. Lymph node Bx performed yesterday . waiting for Bx result. CT of chest with no mediastinal LAP. axillary lymph nodes noted pre-chemo Echo , pending follow the result . Bone Bx and treatment as outpatient. # DM II: Cont SSI while here # Constipation : cont. ralistor and other laxatives. # s/p N/V . improved , cont current management DVT Px; Heparin going for STEPHAN for evaluation for mitral valve vegitation-scheduled for Tuesday
--- NOTE | 2017-02-20 14:10 | PN ---
Physical Exam: SUBJECTIVE: Patient seen and examined at bedside. No acute events overnight. Pt has a mild cough. No headache, fever, chills, nausea, vomiting. OBJECTIVE: Vital Signs Period Temp Pulse Resp BP Sys/Hutchison Pulse Ox Last 24 Hr 97.4 F-98.9 F 67-105 18-20 132-172/77-98 97-97 GENERAL: The patient is awake, alert, and fully oriented, in no acute distress. HEAD: Normal with no signs of trauma. EYES: sclera anicteric, conjunctiva clear. No ptosis. ENT: oropharynx clear without exudates, moist mucous membranes. NECK: Trachea midline, full range of motion, supple. LUNGS: Breath sounds equal, clear to auscultation bilaterally, no wheezes, no crackles, no accessory muscle use. HEART: Regular rate and rhythm, normal S1, S2 without murmur, rub or gallop. ABDOMEN: Soft, nontender, nondistended, normoactive bowel sounds, no guarding, no rebound, no hepatosplenomegaly, no masses. EXTREMITIES: 2+ pulses, warm, well-perfused, no edema. NEUROLOGICAL: Cranial nerves II through XII grossly intact. Normal speech, gait not observed. PSYCH: Normal mood, normal affect. SKIN: Warm, dry, normal turgor, ichthyosis Laboratory Results - last 24 hr 02/19/17 02/19/17 02/20/17 17:27 21:35 06:48 POC Glucometer 186 234 151 02/20/17 10:58 POC Glucometer 171 Active Medications Generic Name Dose Route Start Last Admin Trade Name Freq PRN Reason Stop Dose Admin Docusate Sodium 100 mg 02/13/17 12:42 02/20/17 09:16 Colace - PO 100 mg BID PRN Administration CONSTIPATION Fentanyl 1 patch 02/15/17 11:00 02/18/17 19:03 Duragesic 50mcg Patch - TD 02/22/17 10:48 1 patch Q72H YOKO Administration Insulin Aspart 1 vial 02/13/17 16:30 02/20/17 10:59 Novolog Vial Sliding Scale - SQ 2 units TIDAC YOKO Administration Protocol Methylnaltrexone [place] 12 mg 02/14/17 18:45 02/20/17 09:16 Relistor - SQ 12 mg DAILY YOKO Administration Metoclopramide HCl 5 mg 02/15/17 16:30 02/20/17 10:59 Reglan - PO 5 mg TIDAC YOKO Administration Mirtazapine 7.5 mg 02/15/17 22:00 02/19/17 21:32 Remeron - PO 7.5 mg HS YOKO Administration Miscellaneous 1 each 02/15/17 10:48 02/18/17 19:01 Duragesic Patch Waste TD 1 each PRN PRN Administration PAIN Morphine Sulfate 2 mg 02/17/17 19:38 Morphine Injection - IVPUSH Q4H PRN Ondansetron HCl 4 mg 02/14/17 18:38 02/19/17 09:39 Zofran Injection IVPB 4 mg Q6H PRN Administration NAUSEA Pantoprazole Sodium 40 mg 02/12/17 22:00 02/20/17 09:16 Protonix - PO 40 mg DAILY YOKO Administration Polyethylene Glycol 17 gm 02/13/17 16:15 02/20/17 09:18 Miralax (For Daily Use) - PO 17 gm DAILY YOKO Administration ASSESSMENT/PLAN: 56y/o M with PMHx PMH nonhodgkin's lymphoma (treated with Cyclophosphamide, Vincristine in remission since 2003), NIDDM on metformin, gastritis (on Ranitidine, Omeprazole, Prevacid), who presented to the ED with diffuse abdominal pain. Pt has recent CT abdomen showing diffuse peritoneal lymphadenitis. #Peritoneal LAD -likely recurrence of NHL -CT chest showed no LAD. showed axillary LN -Echo: normal EF. 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 Subtype pending -BM Bx to be done outpt #Abdominal pain:Resolved -likely 2/2 diffuse peritoneal lymphadenitis -Fentanyl -Oxycodone #Fever/Tachy -likely due to LAD -TSH 6.80, T4 1.32, T3 2.3 -BCx, UCx, UA negative -TTE cannot rule out vegetations. Pending STEPHAN. #cough -Robitussin #Gastritis -Protonix #DM -Novolog ISS #Constipation -laxitives, enemas per GI #FEN -not on fluids -lytes wnl -diabetic diet #PPX -heparin SubQ -Protonix #Dispo -Admit to med/surg Pablito Joyner MD PGY-1 Visit type - Emergency Visit Emergency Visit: No - New Patient This patient is new to me today: No - Critical Care Critical Care patient: No - Discharge Referral Referred to [facility] Med P.C.: No
[2017-02-20] MEDS ORDERED: HEPARIN NA (PORCINE) 5,000 UNITS/ML 1ML VIAL ONE (15:08)
[2017-02-20] MEDS: guaiFENesin 200 MG/10 ML 10 ML UNIT-DOSE CUPS PO PRN (15:13)
[2017-02-20] MEDS: MIRTAZAPINE 15 MG TABLET (FP) PO SCH (22:13)
--- NOTE | 2017-02-21 00:07 | PN ---
Progress Note (short form) - Note Progress Note: Spoke with family regarding STEPHAN earlier today. Family gives consent for patient to proceed with STEPHAN as requested by PMD. Transthoracic echocardiography reviewed. Likelihood of vegetation very low. Will follow and STEPHAN on Tuesday. Keep NPO at [place] Michael Elliott MD
[2017-02-21] MEDS: guaiFENesin 200 MG/10 ML 10 ML UNIT-DOSE CUPS PO PRN (00:31)
[2017-02-21] MEDS: INSULIN SLIDING SCALE (NOVOLOG) 1 VIAL SQ SCH ×2 (06:28→12:29)
[2017-02-21] MEDS: METOCLOPRAMIDE HCL 10 MG TABLET (FP) PO SCH ×2 (06:28→10:13)
[2017-02-21 07:53] LABS: BASOPHIL 1.2 % (0-2.0); EOSINOPHIL 8.9 % (0-4.5); MCH 28.6 pg (25.7-33.7); MCHC 34.1 g/dl (32.0-35.9); MEAN CELL VOLUME 83.9 fl (80-96); MEAN PLT VOLUME 7.1 fl (7.5-11.1); NEUTROPHILS 53.3 % (42.8-82.8); PLATELET COUNT 365 K/MM3 (134-434); WHITE BLOOD COUNT 5.6 K/mm3 (4.0-10.0)
[2017-02-21 08:18] LABS: ANION GAP 6 (8-16); CALCIUM 8.9 mg/dL (8.5-10.1); CO2 36 mmol/L (21-32); CREATININE 0.9 mg/dL (0.7-1.3); GLUCOSE,RANDOM 138 mg/dL (74-106)
[2017-02-21] MEDS ORDERED: PT OWN MED DRAWER 7, Y5N ONE (09:23)
[2017-02-21] MEDS: Methylnaltrexone Bromide 12 MG/0.6 ML KIT SQ SCH (10:03)
[2017-02-21] MEDS: POLYETHYLENE GLYCOL 3350 119 GM BTL PO SCH (10:03)
[2017-02-21] MEDS: HEPARIN NA (PORCINE) 5,000 UNITS/ML 1ML VIAL SQ SCH (10:03)
[2017-02-21] MEDS: PANTOPRAZOLE 40 MG TABLET (FP) PO SCH (10:04)
[2017-02-21] MEDS: fentaNYL 50mcg/hr PATCH.TD72 TD SCH (10:15)
[2017-02-21] MEDS: FENTANYL PATCH WASTE TD PRN (10:23)
[2017-02-21] MEDS ORDERED: LIDOCAINE HCL/PF 2% SDV 5ML VIAL ONE (12:51)
[2017-02-21] MEDS ORDERED: PROPOFOL 20 ML ONE ×2 (12:51→13:16)
[2017-02-21] MEDS ORDERED: SUCCINYLCHOLINE CHLORIDE 200 MG/10 ML VIAL ONE (13:16)
[2017-02-21] MEDS ORDERED: LIDOCAINE VISCOUS 2% ORAL/TOP 20 ML UNIT-DOSE CUP MM ONE (13:20)
[2017-02-21 14:48] VITALS: BP 146/92; PULSE 82; TEMP 97.6
--- NOTE | 2017-02-21 15:26 | PATH ---
Surgical Pathology Report Patient Name: THAIS MATHEWS [facility]. Rec. #: [id number] /Age/Gender: 1960 (Age: 56) / M Account: [id number] Location: [facility] MED/SURG Taken: 02/14/2017 Received: 02/15/2017 Reported: 02/21/2017 Physicians: Mehrdad Nichole M.D. Amara Nandikilla, M.D. Specimen(s) Received LYMPH NODE BIOPSY Clinical History 56-year-old male with extensive abnormal retroperitoneal lymphadenopathy Final Diagnosis RETROPERITONEAL LYMPH NODE, NEEDLE CORE BIOPSY: ANAPLASTIC LARGE CELL LYMPHOMA (ALCL), ALK-1 POSITIVE. Comment: The clinical history of previously diagnosed anaplastic large cell lymphoma has been noted. This case has been seen in consultation by Dr. Chai Carlson of [facility], [place], [place] ([id number]). Immunostains performed and interpreted at [facility] show large neoplastic cells to be positive for ALK-1, CD30, CD45 (focal),TIA-1, Granzyme B, and MUM-1. Flow cytometry performed and interpreted at [facility], [place], [place] ([id number]) shows the following: Interpretation: Limited sample, suboptimal for evaluation; clonal B-cell populations are not detected. This case was discussed with Dr. Jimenez on February 21, 2017. Electronically Signed Ha Valverde M.D. Gross Description Received in formalin labeled "lymph node biopsy," are 2 cardoza, cylindrical portions of soft tissue averaging 1.1 cm in length and 0.1 cm diameter. The specimens are submitted in toto in one cassette. There is additional tissue received in RPMI solution which is sent to [facility]. /02/15/2017 saudi02/15/2017
--- NOTE | 2017-02-21 16:25 | PN ---
Progress Note (short form) - Note Progress Note: Patient seen and examined. sister at bedside Cardiology consulted STEPHAN today O/E In NAD Could not appreciate any LAD in the neck/axillary region Abdomen: No organomegaly noted Cor: RRR Lungs:CTA b/l LE: No swelling noted. Last Vital Signs Temp Pulse Resp BP Pulse Ox 97.6 F 82 20 146/92 99 02/21/17 14:46 02/21/17 14:46 02/21/17 14:46 02/21/17 14:46 02/21/17 14:25 02/21/17 06:00 02/21/17 06:00 Current Medications Generic Name Dose Route Start Last Admin Trade Name Freq PRN Reason Stop Dose Admin Docusate Sodium 100 mg 02/13/17 12:42 02/20/17 09:16 Colace - PO 100 mg BID PRN Administration CONSTIPATION Fentanyl 1 patch 02/15/17 11:00 02/21/17 10:15 Duragesic 50mcg Patch - TD 02/22/17 10:48 1 patch Q72H YOKO Administration Guaifenesin 10 ml 02/20/17 14:05 02/21/17 00:31 Robitussin - PO 10 ml Q8H PRN Administration COUGH Heparin Sodium (Porcine) 5,000 unit 02/20/17 22:00 02/21/17 10:03 Heparin - SQ 5,000 unit BID YOKO Administration Insulin Aspart 1 vial 02/13/17 16:30 02/21/17 12:29 Novolog Vial Sliding Scale - SQ Not Given TIDAC YOKO Protocol Methylnaltrexone [place] 12 mg 02/14/17 18:45 02/21/17 10:03 Relistor - SQ 12 mg DAILY YOKO Administration Metoclopramide HCl 5 mg 02/15/17 16:30 02/21/17 10:13 Reglan - PO Not Given TIDAC YOKO Mirtazapine 7.5 mg 02/15/17 22:00 02/20/17 22:13 Remeron - PO 7.5 mg HS YOKO Administration Miscellaneous 1 each 02/15/17 10:48 02/21/17 10:23 Duragesic Patch Waste TD 1 each PRN PRN Administration PAIN Morphine Sulfate 2 mg 02/17/17 19:38 Morphine Injection - IVPUSH Q4H PRN Ondansetron HCl 4 mg 02/14/17 18:38 02/19/17 09:39 Zofran Injection IVPB 4 mg Q6H PRN Administration NAUSEA Pantoprazole Sodium 40 mg 02/12/17 22:00 02/21/17 10:04 Protonix - PO 40 mg DAILY YOKO Administration Polyethylene Glycol 17 gm 02/13/17 16:15 02/21/17 10:03 Miralax (For Daily Use) - PO 17 gm DAILY YOKO Administration 56 Y/O male with Hx of NHL (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 -hepatitis panel reviewed -today STEPHAN, reportedly is negative -Our office follow-up appointment given to pts/pts sister will follow
--- NOTE | 2017-02-21 18:49 | DS ---
Physical Exam: SUBJECTIVE: Patient seen and examined at bedside. No acute events. No complaints. No vomiting or fever. OBJECTIVE: Vital Signs Period Temp Pulse Resp BP Sys/Hutchison Pulse Ox Last 24 Hr 97.6 F-98.8 F 76-105 14-20 137-169/86-96 97-100 PHYSICAL EXAM GENERAL: The patient is awake, alert, and fully oriented, in no acute distress. HEAD: Normal with no signs of trauma. EYES: sclera anicteric, conjunctiva clear. No ptosis. ENT: oropharynx clear without exudates, moist mucous membranes. NECK: Trachea midline, full range of motion, supple. LUNGS: Breath sounds equal, clear to auscultation bilaterally, no wheezes, no crackles, no accessory muscle use. HEART: Regular rate and rhythm, normal S1, S2 without murmur, rub or gallop. ABDOMEN: Soft, nontender, nondistended, normoactive bowel sounds, no guarding, no rebound, no hepatosplenomegaly, no masses. EXTREMITIES: 2+ pulses, warm, well-perfused, no edema. NEUROLOGICAL: Cranial nerves II through XII grossly intact. Normal speech, gait not observed. PSYCH: Normal mood, normal affect. SKIN: Warm, dry, normal turgor, ichthyosis LABS Laboratory Results - last 24 hr 02/21/17 02/21/17 02/21/17 05:32 06:00 06:00 WBC 5.6 RBC 4.06 Hgb 11.6 L Hct 34.1 L MCV 83.9 MCH 28.6 MCHC 34.1 RDW 14.0 Plt Count 365 D MPV 7.1 L Neutrophils % 53.3 Lymphocytes % 28.3 Monocytes % 8.3 Eosinophils % 8.9 H Basophils % 1.2 Sodium 138 Potassium 5.1 Chloride 96 L Carbon Dioxide 36 H Anion Gap 6 L BUN 11 D Creatinine 0.9 POC Glucometer 149 Random Glucose 138 H D Calcium 8.9 HOSPITAL COURSE: Date of Admission:02/12/17 Date of Discharge: 02/21/17 56y/o M with PMHx PMH nonhodgkin's lymphoma (treated with Cyclophosphamide, Vincristine in remission since 2003), NIDDM on metformin, gastritis (on Ranitidine, Omeprazole, Prevacid), who presented to the ED with diffuse abdominal pain. Pt has recent CT abdomen showing diffuse peritoneal lymphadenitis. Peritoneal LAD was thought to be a likely recurrence of NHL or new lymphoma. CT chest showed no LAD but did show axillary LAD. LN Bx preliminary results showed Large cell lymphoma, anaplastic type. BM Bx to be done outpt The patient initially had abdominal pain, which resolved with Fentanyl patches. Pt had recurrent fevers which were thought to be likely secondary to lymphoma. Echo and STEPHAN ruled out endocarditis as a cause for recurrent fevers. Thyroid studies also failed to explain the fevers. BCx, UCx, UA were all negative. Pt received robitussin for cough, protonix for gastritis, novolog for DM, laxatives for constipation while in the hospital. The patient is stable for discharge. Pablito Joyner MD PGY-1 <Pablito Joyner - Last Filed: 02/21/17 18:39> Minutes to complete discharge: 45 <Willy Ritter - Last Filed: 02/22/17 14:42> Discharge Summary Reason For Visit: ABD PAIN,ACUTE MESENTERIC ADENITIS,LYMPHOMA - Home Medications Comprehensive Discharge Medication List: Ambulatory Orders Pantoprazole Sodium [Protonix -] 20 mg PO DAILY 02/08/17 Oxycodone HCl/Acetaminophen [Percocet 5-325 mg Tablet] 1 - 2 tab PO Q6H #20 tablet MDD 4 02/09/17 Metformin HCl [Metformin HCl ER] 500 mg PO DAILY 02/12/17 Ondansetron HCl [Zofran] 4 mg PO BID 02/14/17 Docusate Sodium [Colace -] 100 mg PO BID PRN #14 cap 02/21/17 FENTANYL 50mcg PATCH [DURAGESIC 50mcg PATCH -] 1 each TD Q72H #5 patch.td72 MDD 1 02/21/17 Fentanyl Patch Waste [Duragesic Patch Waste] 1 each TD PRN PRN #1 each 02/21/17 Guaifenesin [Robitussin -] 10 ml PO Q8H PRN #1 bottle 02/21/17 Mirtazapine [Remeron -] 7.5 mg PO HS #7 tablet 02/21/17 Polyethylene Glycol 3350 [Miralax 119 gm Btl -] 17 gm PO DAILY #1 bottle <Pablito Joyner - Last Filed: 02/21/17 18:39> - Home Medications Comprehensive Discharge Medication List: Ambulatory Orders Pantoprazole Sodium [Protonix -] 20 mg PO DAILY 02/08/17 Oxycodone HCl/Acetaminophen [Percocet 5-325 mg Tablet] 1 - 2 tab PO Q6H #20 tablet MDD 4 02/09/17 Metformin HCl [Metformin HCl ER] 500 mg PO DAILY 02/12/17 Ondansetron HCl [Zofran] 4 mg PO BID 02/14/17 Docusate Sodium [Colace -] 100 mg PO BID PRN #14 cap 02/21/17 FENTANYL 50mcg PATCH [DURAGESIC 50mcg PATCH -] 1 each TD Q72H #5 patch.td72 MDD 1 02/21/17 Fentanyl Patch Waste [Duragesic Patch Waste] 1 each TD PRN PRN #1 each 02/21/17 Guaifenesin [Robitussin -] 10 ml PO Q8H PRN #1 bottle 02/21/17 Mirtazapine [Remeron -] 7.5 mg PO HS #7 tablet 02/21/17 Polyethylene Glycol 3350 [Miralax 119 gm Btl -] 17 gm PO DAILY #1 bottle <Willy Ritter - Last Filed: 02/22/17 14:42> Condition: Guarded - Instructions Diet, Activity, Other Instructions: You need to follow up with the following doctors -Dr. Jimenez, hematology/oncology -Dr. Elliott, cardiology -Dr. Lorenzo, primary care You need to take your prescribed medications as directed. If your symptoms get worse or if you develop new symptoms, please return to the emergency department. Referrals: Bj Torres MD [Primary Care Provider] - 1 Week Michael Elliott MD [Staff Physician] - 1 Week Catina Jimenez MD [Staff Physician] - 1 Week Disposition: HOME - Discharge Referral Referred to [facility] Med P.C.: No <Pablito Joyner - Last Filed: 02/21/17 18:39> This patient is new to me today: No Emergency Visit: Yes ED Registration Date: 02/12/17 Care time: The patient presented to the Emergency Department on the above date and was hospitalized for further evaluation of their emergent condition. Critical Care patient: No <Willy Ritter - Last Filed: 02/22/17 14:42>
--- NOTE | 2017-02-21 21:17 | PN ---
Teaching Attending Note Name of Resident: Pablito Joyner ATTENDING PHYSICIAN STATEMENT I saw and evaluated the patient. I reviewed the resident's note and discussed the case with the resident. I agree with the resident's findings and plan as documented. SUBJECTIVE: Comfortable s/p STEPHAN today. OBJECTIVE: Vital Signs Temperature 97.6 F 02/21/17 14:46 Pulse Rate 82 02/21/17 14:46 Respiratory Rate 20 02/21/17 14:46 Blood Pressure 146/92 02/21/17 14:46 O2 Sat by Pulse Oximetry (%) 99 02/21/17 14:25 CBCD WBC 5.6 K/mm3 (4.0-10.0) 02/21/17 06:00 RBC 4.06 M/mm3 (4.00-5.60) 02/21/17 06:00 Hgb 11.6 GM/dL (11.7-16.9) L 02/21/17 06:00 Hct 34.1 % (35.4-49) L 02/21/17 06:00 MCV 83.9 fl (80-96) 02/21/17 06:00 MCHC 34.1 g/dl (32.0-35.9) 02/21/17 06:00 RDW 14.0 % (11.9-15.9) 02/21/17 06:00 Plt Count 365 K/MM3 (134-434) D 02/21/17 06:00 MPV 7.1 fl (7.5-11.1) L 02/21/17 06:00 CMP Sodium 138 mmol/L (136-145) 02/21/17 06:00 Potassium 5.1 mmol/L (3.5-5.1) 02/21/17 06:00 Chloride 96 mmol/L (98-107) L 02/21/17 06:00 Carbon Dioxide 36 mmol/L (21-32) H 02/21/17 06:00 Anion Gap 6 (8-16) L 02/21/17 06:00 BUN 11 mg/dL (7-18) D 02/21/17 06:00 Creatinine 0.9 mg/dL (0.7-1.3) 02/21/17 06:00 Creat Clearance w eGFR > 60 (>60) 02/19/17 06:00 Random Glucose 138 mg/dL (74-106) H D 02/21/17 06:00 Calcium 8.9 mg/dL (8.5-10.1) 02/21/17 06:00 Total Bilirubin 0.4 mg/dL (0.2-1.0) D 02/19/17 06:00 AST 21 U/L (15-37) D 02/19/17 06:00 ALT 19 U/L (12-78) 02/19/17 06:00 Alkaline Phosphatase 91 U/L (45-117) 02/19/17 06:00 Total Protein 6.4 g/dl (6.4-8.2) 02/19/17 06:00 Albumin 2.5 g/dl (3.4-5.0) L 02/19/17 06:00 PE: per resident's note ASSESSMENT AND PLAN: 56 y/o man with h/o NHL, s/p chemo in 2003 , 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 # Cough ,on Robitussin now q8h prn. # Abdominal pain stable now post increasing fentanyl patch to 50 mcg /3 days due to recurrence of NHL , continue oxycodone for breakthrough pain Bx prelim. 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 s/p STEPHAN without any vegetation , patient will follow with oncologist. # Possible recurrence of NHL. Lymph node Bx performed yesterday . waiting for Bx result. patient will follow with oncologist , CT of chest with no mediastinal LAP. axillary lymph nodes noted Bone Bx and treatment as outpatient. # DM II: Cont SSI while here # Constipation : cont. ralistor and other laxatives. # s/p N/V . improved , cont current management discharge patient home
== END 2017-02-21 16:40 | disposition home or self-care (01) | DRG 681 ==
LOC: JER 15:50 → JERBED 19:37 → J7W 02-13 00:27 → JERBED 02-18 02:37 → J7W 02-18 02:39
PROVIDERS: ADMIT Internal Medicine; ATTEND Internal Medicine
PROC: 079 Lymphatic and Hemic Systems, Drainage (ICD-10-PCS; principal; 2017-02-14)
DX: C84.6 Anaplastic large cell lymphoma, ALK-positive (principal); K59.00 Constipation, unspecified; E11.9 Type 2 diabetes mellitus without complications; R50.9 Fever, unspecified; K29.70 Gastritis, unspecified, without bleeding; R05 Cough; K85.90 Acute pancreatitis without necrosis or infection, unspecified; I88.8 Other nonspecific lymphadenitis; R63.4 Abnormal weight loss; Z68.22 Body mass index [BMI] 22.0-22.9, adult; R10.84 Generalized abdominal pain; R00.0 Tachycardia, unspecified
CPT/HCPCS: 36415; 38505; 71260-TC; 74000-TC; 76098-TC; 80048; 80053; 81003; 81015; 82150; 83605; 83690; 84439; 84443; 84481; 85025; 85027; 85610; 85730; 86704; 86706; 86803; 87040; 87086; 87389; 87899; 88307-TC; 93005; 93010; 93306-TC; 93312; 93325; 97116-GP; 97161-GP; 99284-25; J1644

== ENCOUNTER 2017-03-02 13:40 | Emergency (ER) | payer OTHER ==
[2017-03-02 13:46] VITALS: BMI 21.6
--- NOTE | 2017-03-02 14:24 | PDOC ---
Attending Attestation - Resident Resident Name: Mina Brush - ED Attending Attestation I have performed the following: I have examined & evaluated the patient, The case was reviewed & discussed with the resident, I agree w/resident's findings & plan, Exceptions are as noted - HPI HPI: 03/02/17 16:13 56-year-old male presented to emergency department with a complaint of multiple episodes of vomiting No fevers or chills No abdominal pain No diarrhea No abdominal distention - Physicial Exam PE: Dry mucous membranes No abdominal distention No point tenderness to palpation RRR CTA b/l - Medical Decision Making 03/02/17 16:16 Will do: Labs CT abd and pelvis Will re assess 03/02/17 16:47 Laboratory Tests 03/02/17 03/02/17 03/02/17 14:55 14:55 15:03 WBC 7.0 Hgb 13.8 D Hct 40.8 D Plt Count 379 Neutrophils % 69.3 D INR 1.17 H BUN 10 Creatinine 0.9 Lipase 581 H Urine Blood Urine Nitrite Ur Leukocyte Esterase Urine RBC Urine WBC 03/02/17 16:04 WBC Hgb Hct Plt Count Neutrophils % INR BUN Creatinine Lipase Urine Blood 1+ H Urine Nitrite Negative Ur Leukocyte Esterase Negative Urine RBC <1 Urine WBC <1 03/02/17 18:[address] Salvador Pt should be discharged if possible as he is scheduled for Port placement and Chemo tomorrow Pt states he feels a bit better Plan to discharge
[2017-03-02] MEDS ORDERED: ONDANSETRON 4 MG/2 ML VIAL IVPB ONE (14:26)
[2017-03-02] MEDS ORDERED: SODIUM CHLORIDE 1,000 ML IV STA ×2 (14:26→16:40)
--- NOTE | 2017-03-02 14:41 | PDOC ---
History of Present Illness - General Chief Complaint: Nausea/Vomiting Stated Complaint: VOMITING Time Seen by Provider: 03/02/17 14:07 History Source: Patient, Family Exam Limitations: Language Barrier - History of Present Illness Initial Comments: 03/02/17 14:34 Patient is a 57M with history of recurrent anaplastic lymphoma and non-insulin dependent diabetes here today complaining of nausea and vomiting since this morning. He's had 5-6 episodes of non-bloody emesis. Last bowel movement was yesterday afternoon, which was non-bloody and non-melenotic. He denies abdominal pain, chest pain, shortness of breath, fevers and chills. He endorses decreased PO intake. He says that he started his allopurinol today, but vomited it back up. Due to have port put in tomorrow and start chemo. 03/02/17 14:46 Patient was discussed with Heme/Onc Dr Madeleine Gauthier ([phone]). Concern is for bowel obstruction. Past History - Past Medical History Allergies/Adverse Reactions: Allergies Allergy/AdvReac Type Severity Reaction Status Date / Time No Known Allergies Allergy Verified 03/02/17 13:46 Home Medications: Ambulatory Orders Pantoprazole Sodium [Protonix -] 20 mg PO DAILY 02/08/17 Oxycodone HCl/Acetaminophen [Percocet 5-325 mg Tablet] 1 - 2 tab PO Q6H #20 tablet MDD 4 02/09/17 Metformin HCl [Metformin HCl ER] 500 mg PO DAILY 02/12/17 Ondansetron HCl [Zofran] 4 mg PO BID 02/14/17 Docusate Sodium [Colace -] 100 mg PO BID PRN #14 cap 02/21/17 FENTANYL 50mcg PATCH [DURAGESIC 50mcg PATCH -] 1 each TD Q72H #5 patch.td72 MDD 1 02/21/17 Fentanyl Patch Waste [Duragesic Patch Waste] 1 each TD PRN PRN #1 each 02/21/17 Guaifenesin [Robitussin -] 10 ml PO Q8H PRN #1 bottle 02/21/17 Mirtazapine [Remeron -] 7.5 mg PO HS #7 tablet 02/21/17 Polyethylene Glycol 3350 [Miralax 119 gm Btl -] 17 gm PO DAILY #1 bottle Allopurinol [Zyloprim -] 100 mg PO DAILY 03/02/17 Metoclopramide HCl [Reglan] 10 mg PO BID PRN #5 tablet 03/02/17 Omeprazole 20 mg PO DAILY 03/02/17 Cancer: Yes (NONHODGEKINS LYMPHOMA) Diabetes: Yes GI Disorders: Yes (GASTRITIS) - Psycho/Social/Smoking Cessation Hx Anxiety: No Suicidal Ideation: No Smoking History: Never smoked Hx Alcohol Use: No Drug/Substance Use Hx: No Substance Use Type: None Hx Substance Use Treatment: No Review of Systems - Review of Systems Comments:: 03/02/17 14:43 GENERAL/CONSTITUTIONAL: No fever or chills. Positive for weakness and decreased PO intake HEAD, EYES, EARS, NOSE AND THROAT: No change in vision. No ear pain or discharge. No sore throat. CARDIOVASCULAR: No chest pain or shortness of breath RESPIRATORY: No cough, wheezing, or hemoptysis. GASTROINTESTINAL: Positive for nausea and vomiting. Negative for diarrhea or constipation. GENITOURINARY: No dysuria, frequency, or change in urination. MUSCULOSKELETAL: No joint or muscle swelling or pain. No neck or back pain. NEUROLOGIC: No headache, vertigo, loss of consciousness HEMATOLOGIC/LYMPHATIC: No anemia, easy bleeding, or history of blood clots. ALLERGIC/IMMUNOLOGIC: No hives or skin allergy. *Physical Exam - Vital Signs Last Vital Signs Temp Pulse Resp BP Pulse Ox 98.0 F 67 20 150/93 97 03/02/17 13:43 03/02/17 13:43 03/02/17 13:43 03/02/17 13:43 03/02/17 13:43 - Physical Exam Comments: 03/02/17 14:44 GENERAL: Awake, alert, and fully oriented, in no acute distress HEAD: No signs of trauma, normocephalic, atraumatic EYES: PERRLA, EOMI, sclera anicteric, conjunctiva clear ENT: Auricles normal inspection, hearing grossly normal, nares patent, oropharynx clear without exudates. Dry mucosa LUNGS: No distress, speaks full sentences, clear to auscultation bilaterally HEART: Regular rate and rhythm, normal S1 and S2, no murmurs, rubs or gallops, peripheral pulses normal and equal bilaterally. ABDOMEN: Soft, nontender, normoactive bowel sounds. No guarding, no rebound. No masses EXTREMITIES: Normal inspection, Normal range of motion, no edema. No clubbing or cyanosis. NEUROLOGICAL: Cranial nerves II through XII grossly intact. Normal speech, no focal sensorimotor deficits SKIN: Warm, Dry ED Treatment Course - LABORATORY CBC & Chemistry Diagram: 03/02/17 14:55 03/02/17 14:55 - RADIOLOGY Radiology Studies Ordered: Category Date Time Status ABDOMEN & PELVIS CT WITH CONTR [CT] Stat CT Scan 03/02/17 14:28 Ordered Medical Decision Making - Medical Decision Making 03/02/17 14:45 56M with history of recurrent anaplastic lymphoma (chemo due to start tomorrow) here today complaining of nausea and vomiting. Patient was started on allopurinol today. Vital signs stable and normal. Patient looks dry. Will start 1L NS and zofran. Differential diagnosis includes, but is not limited to: medication induced nausea/vomiting, bowel obstruction, gastroenteritis. Will order CBC, CMP, Lactate, CT w/ IV contrast, and UA to evaluate. 03/02/17 17:37 CMP, Lactate, CBC, UA normal. CT shows improvement of adenitis and no other acute pathology. Patient discussed with his Heme/Onc doctor. Patient will not be able to get chemo tomorrow if admitted for dehydration and nausea/vomiting tonight. Will continue hydrating and treating nausea/vomiting medically with hope to discharge. 03/02/17 18:47 Patient tolerated PO challenge after receiving 2L. 03/02/17 19:02 Patient now eating sandwich, will discharge home with reglan. *DC/Admit/Observation/Transfer Diagnosis at time of Disposition: Vomiting Qualifiers: Vomiting type: unspecified Vomiting Intractability: non-intractable Nausea presence: with nausea Qualified Code(s): R11.2 - Nausea with vomiting, unspecified - Discharge Dispostion Disposition: HOME Condition at time of disposition: Good Admit: No - Prescriptions Prescriptions: Metoclopramide HCl [Reglan] 10 mg PO BID PRN #5 tablet PRN Reason: Nausea - Patient Instructions Printed Discharge Instructions: DI for Vomiting -- Adult - Attestations Physician Attestion: 03/02/17 19:02 I, Dr. Mina Brush, attest that this document has been prepared under my direction and personally reviewed by me in its entirety. I further attest, that it accurately reflects all work, treatment, procedures and medical decision -making performed by me.
[2017-03-02] MEDS ORDERED: ONDANSETRON 4 MG/2 ML VIAL ONE (14:47)
[2017-03-02 15:02] LABS: BASOPHIL 0.8 % (0-2.0); EOSINOPHIL 1.8 % (0-4.5); MCH 28.4 pg (25.7-33.7); MCHC 33.9 g/dl (32.0-35.9); MEAN CELL VOLUME 83.9 fl (80-96); MEAN PLT VOLUME 7.7 fl (7.5-11.1); NEUTROPHILS 69.3 % (42.8-82.8); PLATELET COUNT 379 K/MM3 (134-434); RDW 14.4 % (11.9-15.9)
[2017-03-02 15:20] LABS: ALBUMIN 3.7 g/dl (3.4-5.0); ALK PHOS 92 U/L (45-117); ANION GAP 9 (8-16); BILIRUBIN,TOTAL 0.6 mg/dL (0.2-1.0); CALCIUM 9.2 mg/dL (8.5-10.1); CO2 26 mmol/L (21-32); CREATININE 0.9 mg/dL (0.7-1.3); GLUCOSE,RANDOM 165 mg/dL (74-106); SGOT/AST 17 U/L (15-37); SGPT/ALT 19 U/L (12-78); TOT PROT 7.9 g/dl (6.4-8.2)
[2017-03-02 15:42] LABS: INR 1.17 (0.82-1.09); PROTHROMBIN TIME (PATIENT) 12.9 SEC (9.98-11.88)
[2017-03-02 16:20] LABS: URINE APPEARANCE CLEAR; URINE BILIRUBIN NEGATIVE (NEGATIVE); URINE BLOOD 1+ (NEGATIVE); URINE COLOR LTYELLOW; URINE GLUCOSE (UA) NEGATIVE (NEGATIVE); URINE KETONE NEGATIVE (NEGATIVE); URINE LEUK ESTERASE NEGATIVE (NEGATIVE); URINE NITRITE NEGATIVE (NEGATIVE); URINE PROTEIN NEGATIVE (NEGATIVE); URINE UROBILINOGEN NEGATIVE mg/dL (0.2-1.0)
[2017-03-02 16:28] LABS: URINE MUCUS RARE; URINE RBC <1 /hpf (0-3); URINE WBC <1 /hpf (3-5)
[2017-03-02] MEDS ORDERED: METOCLOPRAMIDE HCL INJECTION 10 MG/2 ML VIAL IVPB ONE (17:10)
[2017-03-02] MEDS ORDERED: METOCLOPRAMIDE HCL INJECTION 10 MG/2 ML VIAL ONE (17:13)
[2017-03-02 19:29] VITALS: BP 136/92; PULSE 81; TEMP 97.6
== END 2017-03-02 19:30 | disposition home or self-care (01) ==
LOC: JER 13:40
PROC: 3E033GC Introduction of Other Therapeutic Substance into Peripheral Vein, Percutaneous Approach (ICD-10-PCS; principal; 2017-03-02)
PROC: 3E0337Z Introduction of Electrolytic and Water Balance Substance into Peripheral Vein, Percutaneous Approach (ICD-10-PCS; 2017-03-02)
DX: R11.2 Nausea with vomiting, unspecified (principal); C86.6 Primary cutaneous CD30-positive T-cell proliferations; E11.9 Type 2 diabetes mellitus without complications
CPT/HCPCS: 36415; 74177-TC; 80053; 81003; 81015; 83605; 83690; 85025; 85610; 86850; 86900; 86901; 99284-25

== ENCOUNTER 2017-03-03 07:32 | Day surgery (SDC) | payer OTHER ==
[2017-03-03] MEDS ORDERED: SODIUM CHLORIDE 500 ML IV ONE (14:00)
[2017-03-03] MEDS ORDERED: SODIUM CHLORIDE 1,000 ML IV ONE (15:30)
[2017-03-03] MEDS ORDERED: DEXAMETHASONE INJECTION 20 MG in SODIUM CHLORIDE 50 ML IVPB ONE (16:00)
[2017-03-03] MEDS ORDERED: DIPHENHYDRAMINE 25 MG in SODIUM CHLORIDE 50 ML IVPB ONE (16:00)
[2017-03-03] MEDS ORDERED: SODIUM CHLORIDE IV ONE (16:30)
[2017-03-03] MEDS ORDERED: BRENTUXIMAB VEDOTIN IV ONE (16:30)
[2017-03-03 21:08] VITALS: BP 150/97; PULSE 68; TEMP 98.9
[2017-03-04] MEDS ORDERED: ACETAMINOPHEN 325 MG TABLET (FP) PO ONE (16:00)
== END 2017-03-03 21:09 | disposition home or self-care (01) ==
LOC: JONCCHEMO 07:32 → JINFUSION 07:32 → J7W 13:04 → JONCCHEMO 21:09
PROVIDERS: ATTEND Internal Medicine Hematology & Oncology
PROC: 3E04305 Introduction of Other Antineoplastic into Central Vein, Percutaneous Approach (ICD-10-PCS; principal; 2017-03-03)
PROC: 3E043GC Introduction of Other Therapeutic Substance into Central Vein, Percutaneous Approach (ICD-10-PCS; 2017-03-03)
PROC: 3E0437Z Introduction of Electrolytic and Water Balance Substance into Central Vein, Percutaneous Approach (ICD-10-PCS; 2017-03-03)
DX: Z51.11 Encounter for antineoplastic chemotherapy (principal); C84.48 Peripheral T-cell lymphoma, not elsewhere classified, lymph nodes of multiple sites; E11.9 Type 2 diabetes mellitus without complications
CPT/HCPCS: 96361; 96367; 96413; 96415; J9042; 96375

== ENCOUNTER 2017-03-04 08:03 | Day surgery (SDC) | payer OTHER ==
[2017-03-04] MEDS ORDERED: SODIUM CHLORIDE 1,000 ML IV SCH (10:45)
--- NOTE | 2017-03-04 12:08 | PN ---
Progress Note (short form) - Note Progress Note: Patient admitted for hydration 56 year old male with Anaplastic large cell lymphoma treated with brentuximab on 03/03. Admitted for IV hydration post therapy. Tolerated chemotherapy without untoward effect. ROS- no headaches, diplopia, epistaxis, sore throat , dyshpagia, chest pain, GI toxicity of nausea, diarrhea, constipation, no dysuria, musculoskeletal symptoms. BP-- 119/83 Pulse-70 RR-16 HEENT: [place], EOM Intact Oropharynx: No thrush, No mucositis Nodes: Without adenopathy Cor: RSR, No murmurs, No gallops Lungs: Clear to P&A Abd: Soft, Normal bowel sounds, No organomegaly Ext:No significant edema Skin: No rashes, Integument intact Impression : Anaplastic Large cell lymphoma S/P chemothrapy IV hydration - post therapy. For office follow up.
[2017-03-04 14:20] VITALS: TEMP 98.6
[2017-03-04 18:50] VITALS: BP 126/80; PULSE 76
== END 2017-03-04 18:00 | disposition home or self-care (01) ==
LOC: JONCNONCHE 08:03 → J7W 10:01 → JONCNONCHE 18:00
PROVIDERS: ATTEND Internal Medicine Hematology & Oncology
DX: C84.48 Peripheral T-cell lymphoma, not elsewhere classified, lymph nodes of multiple sites (principal)
CPT/HCPCS: 96365; 96366

== ENCOUNTER 2017-03-24 07:17 | Day surgery (SDC) | payer OTHER ==
[2017-03-24] MEDS ORDERED: SODIUM CHLORIDE IV ONE (08:00)
[2017-03-24] MEDS ORDERED: BRENTUXIMAB VEDOTIN IV ONE (08:00)
[2017-03-24 11:36] LABS: BASOPHIL 0.9 % (0-2.0); EOSINOPHIL 2.8 % (0-4.5); MCH 28.1 pg (25.7-33.7); MCHC 33.7 g/dl (32.0-35.9); MEAN CELL VOLUME 83.5 fl (80-96); MEAN PLT VOLUME 7.7 fl (7.5-11.1); NEUTROPHILS 59.1 % (42.8-82.8); PLATELET COUNT 208 K/MM3 (134-434); RDW 16.3 % (11.9-15.9); WHITE BLOOD COUNT 5.4 K/mm3 (4.0-10.0)
[2017-03-24 12:03] LABS: ALBUMIN 3.6 g/dl (3.4-5.0); ANION GAP 8 (8-16); CO2 30 mmol/L (21-32); GLUCOSE,RANDOM 197 mg/dL (74-106)
[2017-03-24 12:06] LABS: ALK PHOS 90 U/L (45-117); BILIRUBIN,DIRECT 0.1 mg/dL (0.0-0.2); BILIRUBIN,TOTAL 0.5 mg/dL (0.2-1.0); CREATININE 0.9 mg/dL (0.7-1.3); LDH 131 U/L (87-241); SGOT/AST 25 U/L (15-37); SGPT/ALT 40 U/L (12-78); TOT PROT 7.1 g/dl (6.4-8.2); URIC ACID 3.1 mg/dL (2.6-7.2)
[2017-03-24 12:19] VITALS: TEMP 98.4
[2017-03-24] MEDS ORDERED: ACETAMINOPHEN 325 MG TABLET (FP) PO ONE (12:45)
[2017-03-24] MEDS ORDERED: DEXAMETHASONE SOD PHOSPHATE 10 MG/1 ML VIAL IVPB ONE (12:45)
[2017-03-24] MEDS ORDERED: SODIUM CHLORIDE 500 ML IV SCH (12:45)
[2017-03-24] MEDS ORDERED: ACETAMINOPHEN 325 MG TABLET (FP) ONE (15:13)
[2017-03-24 17:11] VITALS: BP 113/75; PULSE 65
== END 2017-03-24 16:20 | disposition home or self-care (01) ==
LOC: JONCCHEMO 07:17 → J7W 11:15 → JONCCHEMO 16:20
PROVIDERS: ATTEND Internal Medicine Hematology & Oncology
DX: Z51.11 Encounter for antineoplastic chemotherapy (principal); C84.60 Anaplastic large cell lymphoma, ALK-positive, unspecified site
CPT/HCPCS: 36415; 80048; 80076; 83615; 84550; 85025; 96361; 96367; 96375; 96413; J9042

== ENCOUNTER 2017-04-14 07:21 | Day surgery (SDC) | payer OTHER ==
[2017-04-14] MEDS ORDERED: BRENTUXIMAB VEDOTIN IV ONE (08:00)
[2017-04-14] MEDS ORDERED: SODIUM CHLORIDE IV ONE (08:00)
[2017-04-14 11:22] LABS: EOSINOPHIL 2.2 % (0-4.5); MCHC 33.5 g/dl (32.0-35.9); MEAN CELL VOLUME 83.6 fl (80-96); MEAN PLT VOLUME 7.8 fl (7.5-11.1); NEUTROPHILS 58.1 % (42.8-82.8); PLATELET COUNT 197 K/MM3 (134-434); RDW 17.5 % (11.9-15.9); WHITE BLOOD COUNT 5.3 K/mm3 (4.0-10.0)
[2017-04-14 11:54] LABS: ALBUMIN 3.8 g/dl (3.4-5.0); ALK PHOS 91 U/L (45-117); ANION GAP 7 (8-16); BILIRUBIN,DIRECT 0.1 mg/dL (0.0-0.2); BILIRUBIN,TOTAL 0.6 mg/dL (0.2-1.0); CALCIUM 8.9 mg/dL (8.5-10.1); CO2 28 mmol/L (21-32); GLUCOSE,RANDOM 211 mg/dL (74-106); SGOT/AST 25 U/L (15-37); SGPT/ALT 33 U/L (12-78); TOT PROT 7.5 g/dl (6.4-8.2)
[2017-04-14] MEDS ORDERED: DEXAMETHASONE SOD PHOSPHATE 10 MG/1 ML VIAL IVPB ONE ×2 (13:00→15:15)
[2017-04-14] MEDS ORDERED: SODIUM CHLORIDE 500 ML IV SCH (13:00)
[2017-04-14] MEDS ORDERED: ACETAMINOPHEN 325 MG TABLET (FP) PO ONE (16:15)
[2017-04-14 17:39] VITALS: TEMP 97.6
[2017-04-14 17:57] VITALS: BP 123/85; PULSE 79
== END 2017-04-14 15:55 | disposition home or self-care (01) ==
LOC: JONCCHEMO 07:21 → J7W 12:41 → JONCCHEMO 15:55
PROVIDERS: ATTEND Internal Medicine Hematology & Oncology
DX: Z51.11 Encounter for antineoplastic chemotherapy (principal); C84.60 Anaplastic large cell lymphoma, ALK-positive, unspecified site
CPT/HCPCS: 36415; 80053; 80076; 83735; 85025; 96361; 96375; 96413; J9042

== ENCOUNTER 2017-05-10 07:39 | Day surgery (SDC) | payer OTHER ==
[2017-05-10] MEDS ORDERED: BRENTUXIMAB VEDOTIN IV ONE (10:00)
[2017-05-10] MEDS ORDERED: SODIUM CHLORIDE IV ONE (10:00)
[2017-05-10 10:27] LABS: BASOPHIL 1.1 % (0-2.0); EOSINOPHIL 1.8 % (0-4.5); MCH 28.7 pg (25.7-33.7); MCHC 34.3 g/dl (32.0-35.9); MEAN CELL VOLUME 83.5 fl (80-96); MEAN PLT VOLUME 7.8 fl (7.5-11.1); NEUTROPHILS 58.4 % (42.8-82.8); PLATELET COUNT 217 K/MM3 (134-434); WHITE BLOOD COUNT 5.8 K/mm3 (4.0-10.0)
[2017-05-10 10:56] LABS: ALK PHOS 97 U/L (45-117); ANION GAP 11 (8-16); BILIRUBIN,DIRECT 0.1 mg/dL (0.0-0.2); BILIRUBIN,TOTAL 0.6 mg/dL (0.2-1.0); CALCIUM 8.7 mg/dL (8.5-10.1); CO2 25 mmol/L (21-32); GLUCOSE,RANDOM 223 mg/dL (74-106); MAGNESIUM 2.1 mg/dL (1.8-2.4); SGOT/AST 21 U/L (15-37); SGPT/ALT 31 U/L (12-78); TOT PROT 7.6 g/dl (6.4-8.2); URIC ACID 3.1 mg/dL (2.6-7.2)
[2017-05-10 11:03] LABS: THYROID STIMULATING HORMONE 6.6 uIU/ml (0.358-3.74)
[2017-05-10] MEDS ORDERED: DEXAMETHASONE SOD PHOSPHATE 10 MG/1 ML VIAL IVPB ONE (12:00)
[2017-05-10 12:04] VITALS: PULSE 76; TEMP 98.1
[2017-05-10] MEDS ORDERED: SODIUM CHLORIDE 500 ML IV ONE (12:15)
[2017-05-10 12:40] LABS: FREE T4 0.76 ng/dl (0.76-1.16)
[2017-05-10] MEDS ORDERED: DEXAMETHASONE SOD PHOSPHATE 10 MG/1 ML VIAL ONE (13:23)
[2017-05-10 16:27] VITALS: BP 133/85
== END 2017-05-10 15:10 | disposition home or self-care (01) ==
LOC: JONCCHEMO 07:39 → J7W 11:18 → JONCCHEMO 15:10
PROVIDERS: ATTEND Internal Medicine Hematology & Oncology
DX: Z51.11 Encounter for antineoplastic chemotherapy (principal); C84.60 Anaplastic large cell lymphoma, ALK-positive, unspecified site
CPT/HCPCS: 36415; 80053; 80076; 83615; 83735; 84439; 84443; 84550; 85025; 96361; 96375; 96413; J9042

== ENCOUNTER 2017-05-31 07:15 | Day surgery (SDC) | payer OTHER ==
[2017-05-31] MEDS ORDERED: BRENTUXIMAB VEDOTIN IV ONE (08:00)
[2017-05-31] MEDS ORDERED: SODIUM CHLORIDE IV ONE (08:00)
[2017-05-31 10:06] LABS: EOSINOPHIL 2.2 % (0-4.5); MCH 28.3 pg (25.7-33.7); MCHC 33.6 g/dl (32.0-35.9); MEAN CELL VOLUME 84.2 fl (80-96); MEAN PLT VOLUME 7.9 fl (7.5-11.1); PLATELET COUNT 209 K/MM3 (134-434); RDW 18.7 % (11.9-15.9); WHITE BLOOD COUNT 5.2 K/mm3 (4.0-10.0)
[2017-05-31 10:37] LABS: ALBUMIN 3.7 g/dl (3.4-5.0); ANION GAP 10 (8-16); BILIRUBIN,DIRECT < 0.2 mg/dL (0.0-0.2); BILIRUBIN,TOTAL 0.6 mg/dL (0.2-1.0); CALCIUM 8.6 mg/dL (8.5-10.1); CO2 27 mmol/L (21-32); CREATININE 1.1 mg/dL (0.7-1.3); GLUCOSE,RANDOM 258 mg/dL (74-106); MAGNESIUM 1.9 mg/dL (1.8-2.4); SGOT/AST 20 U/L (15-37); SGPT/ALT 34 U/L (12-78); TOT PROT 7.3 g/dl (6.4-8.2); URIC ACID 5.5 mg/dL (2.6-7.2)
[2017-05-31 10:38] LABS: ALK PHOS 96 U/L (45-117)
[2017-05-31 10:45] LABS: ALBUMIN 3.7 g/dl (3.4-5.0); ALK PHOS 97 U/L (45-117); BILIRUBIN,DIRECT < 0.2 mg/dL (0.0-0.2); BILIRUBIN,TOTAL 0.7 mg/dL (0.2-1.0); SGOT/AST 23 U/L (15-37); SGPT/ALT 33 U/L (12-78); TOT PROT 7.2 g/dl (6.4-8.2)
[2017-05-31] MEDS ORDERED: DEXAMETHASONE SOD PHOSPHATE 10 MG/1 ML VIAL IVPB ONE (11:00)
[2017-05-31] MEDS ORDERED: ACETAMINOPHEN 325 MG TABLET (FP) PO ONE (11:00)
[2017-05-31] MEDS ORDERED: SODIUM CHLORIDE 500 ML IV SCH (12:00)
[2017-05-31 18:31] VITALS: BP 112/68; PULSE 68; TEMP 98.2
== END 2017-05-31 15:10 | disposition home or self-care (01) ==
LOC: JONCCHEMO 07:15 → J7W 10:43 → JONCCHEMO 15:10
PROVIDERS: ATTEND Internal Medicine Hematology & Oncology
DX: Z51.11 Encounter for antineoplastic chemotherapy (principal); C84.60 Anaplastic large cell lymphoma, ALK-positive, unspecified site
CPT/HCPCS: 36415; 80053; 80076; 82607; 83615; 83735; 84439; 84443; 84550; 85025; 85651; 86140; 96361; 96367; 96375; 96413; J9042

== ENCOUNTER 2017-06-21 07:27 | Day surgery (SDC) | payer OTHER ==
[2017-06-21] MEDS ORDERED: BRENTUXIMAB VEDOTIN IV ONE (08:00)
[2017-06-21] MEDS ORDERED: SODIUM CHLORIDE IV ONE (08:00)
[2017-06-21 10:20] LABS: BASOPHIL 1.1 % (0-2.0); EOSINOPHIL 2.1 % (0-4.5); MCH 29.2 pg (25.7-33.7); MCHC 34.4 g/dl (32.0-35.9); MEAN PLT VOLUME 7.8 fl (7.5-11.1); NEUTROPHILS 58.5 % (42.8-82.8); PLATELET COUNT 193 K/MM3 (134-434); RDW 18.5 % (11.9-15.9); WHITE BLOOD COUNT 4.8 K/mm3 (4.0-10.0)
[2017-06-21 11:02] LABS: C-REACTIVE PROTEIN < 0.3 MG/DL (0.00-0.3); LDH 157 U/L (87-241)
[2017-06-21 11:04] LABS: ALBUMIN 3.8 g/dl (3.4-5.0); ALK PHOS 99 U/L (45-117); ANION GAP 9 (8-16); BILIRUBIN,DIRECT < 0.2 mg/dL (0.0-0.2); BILIRUBIN,TOTAL 0.7 mg/dL (0.2-1.0); CALCIUM 9.1 mg/dL (8.5-10.1); CO2 26 mmol/L (21-32); CREATININE 1.2 mg/dL (0.7-1.3); GLUCOSE,RANDOM 258 mg/dL (74-106); SGOT/AST 22 U/L (15-37); SGPT/ALT 37 U/L (12-78); TOT PROT 7.5 g/dl (6.4-8.2)
[2017-06-21] MEDS ORDERED: SODIUM CHLORIDE 250 ML IV ONE ×2 (11:30→13:30)
[2017-06-21] MEDS ORDERED: SODIUM CHLORIDE 500 ML IV ONE (11:30)
[2017-06-21] MEDS ORDERED: ACETAMINOPHEN 325 MG TABLET (FP) PO ONE (11:30)
[2017-06-21] MEDS ORDERED: DEXAMETHASONE SOD PHOSPHATE 20 MG/5 ML VIAL IVPB ONE (11:30)
[2017-06-21] MEDS ORDERED: DEXAMETHASONE SOD PHOSPHATE 10 MG/1 ML VIAL IVPB ONE (11:45)
[2017-06-21 14:07] VITALS: TEMP 97.7
[2017-06-21 15:33] VITALS: BP 115/80; PULSE 72
== END 2017-06-21 14:45 | disposition home or self-care (01) ==
LOC: JONCCHEMO 07:27 → J7W 11:12 → JONCCHEMO 14:45
PROVIDERS: ATTEND Internal Medicine Hematology & Oncology
DX: Z51.11 Encounter for antineoplastic chemotherapy (principal); C84.60 Anaplastic large cell lymphoma, ALK-positive, unspecified site
CPT/HCPCS: 36415; 80053; 80076; 83615; 83735; 85025; 85651; 86140; 96361; 96367; 96375; 96413; J9042

== ENCOUNTER 2017-07-19 07:41 | Day surgery (SDC) | payer OTHER ==
[2017-07-19] MEDS ORDERED: SODIUM CHLORIDE IV ONE (10:00)
[2017-07-19] MEDS ORDERED: BRENTUXIMAB VEDOTIN IV ONE (10:00)
[2017-07-19 11:16] LABS: EOS % 1.7 % (0-4.5); HEMATOCRIT 39.4 % (35.4-49); HEMOGLOBIN 13.2 GM/dL (11.7-16.9); LYMPH % 25.2 % (8-40); MCH 29.3 pg (25.7-33.7); MCHC 33.6 g/dl (32.0-35.9); MEAN CELL VOLUME 87.1 fl (80-96); MEAN PLT VOLUME 7.8 fl (7.5-11.1); MONO % 8.3 % (3.8-10.2); NEUT % 63.8 % (42.8-82.8); PLATELET COUNT 223 K/MM3 (134-434); RBC 4.53 M/mm3 (4.00-5.60); RDW 16.5 % (11.9-15.9); WHITE BLOOD COUNT 5.7 K/mm3 (4.0-10.0)
[2017-07-19 11:47] LABS: ALBUMIN 3.8 g/dl (3.4-5.0); ANION GAP 8 (8-16); BILIRUBIN,TOTAL 0.6 mg/dL (0.2-1.0); BLOOD UREA NITROGEN 19 mg/dL (7-18); CALCIUM 8.9 mg/dL (8.5-10.1); CHLORIDE 104 mmol/L (98-107); CO2 28 mmol/L (21-32); CREATININE 1.1 mg/dL (0.7-1.3); GLUCOSE,RANDOM 164 mg/dL (74-106); POTASSIUM 4.5 mmol/L (3.5-5.1); SGOT/AST 24 U/L (15-37); SGPT/ALT 28 U/L (12-78); SODIUM 140 mmol/L (136-145); TOT PROT 7.6 g/dl (6.4-8.2)
[2017-07-19 11:51] LABS: ALK PHOS 129 U/L (45-117)
[2017-07-19 12:07] LABS: LDH 163 U/L (87-241)
[2017-07-19] MEDS ORDERED: DEXAMETHASONE INJECTION 20 MG, DIPHENHYDRAMINE 25 MG in SODIUM CHLORIDE 100 ML IVPB ONE (12:30)
[2017-07-19] MEDS ORDERED: ACETAMINOPHEN 325 MG TABLET (FP) PO ONE (12:45)
[2017-07-19] MEDS ORDERED: SODIUM CHLORIDE 250 ML IV ONE ×2 (13:00→14:00)
[2017-07-19] MEDS ORDERED: DEXAMETHASONE SOD PHOSPHATE 10 MG/1 ML VIAL ONE (13:44)
[2017-07-19 15:53] VITALS: TEMP 98
[2017-07-19 15:54] VITALS: BP 117/80; PULSE 69
== END 2017-07-19 16:15 | disposition home or self-care (01) ==
LOC: JONCCHEMO 07:41 → J7W 11:42 → JONCCHEMO 16:15
PROVIDERS: ATTEND Internal Medicine Hematology & Oncology
DX: Z51.11 Encounter for antineoplastic chemotherapy (principal); C84.60 Anaplastic large cell lymphoma, ALK-positive, unspecified site
CPT/HCPCS: 36415; 80053; 83615; 84550; 85025; 96361; 96367; 96375; 96413; J9042

== ENCOUNTER 2017-08-16 07:33 | Day surgery (SDC) | payer OTHER ==
[2017-08-16] MEDS ORDERED: SODIUM CHLORIDE IV ONE (08:15)
[2017-08-16] MEDS ORDERED: BRENTUXIMAB VEDOTIN IV ONE (08:15)
[2017-08-16 10:52] LABS: BASO % 0.8 % (0-2.0); EOS % 1.1 % (0-4.5); HEMATOCRIT 37.7 % (35.4-49); HEMOGLOBIN 12.6 GM/dL (11.7-16.9); LYMPH % 20.1 % (8-40); MCH 28.8 pg (25.7-33.7); MCHC 33.4 g/dl (32.0-35.9); MEAN CELL VOLUME 86.2 fl (80-96); MEAN PLT VOLUME 7.9 fl (7.5-11.1); MONO % 8.7 % (3.8-10.2); NEUT % 69.3 % (42.8-82.8); PLATELET COUNT 249 K/MM3 (134-434); RBC 4.37 M/mm3 (4.00-5.60); WHITE BLOOD COUNT 6.9 K/mm3 (4.0-10.0)
[2017-08-16 11:26] LABS: ANION GAP 6 (8-16); BILIRUBIN,DIRECT < 0.2 mg/dL (0.0-0.2); BILIRUBIN,TOTAL 0.5 mg/dL (0.2-1.0); BLOOD UREA NITROGEN 24 mg/dL (7-18); CALCIUM 8.8 mg/dL (8.5-10.1); CHLORIDE 103 mmol/L (98-107); CO2 28 mmol/L (21-32); CREATININE 1.1 mg/dL (0.7-1.3); GLUCOSE,RANDOM 122 mg/dL (74-106); POTASSIUM 4.5 mmol/L (3.5-5.1); SGOT/AST 19 U/L (15-37); SGPT/ALT 25 U/L (12-78); SODIUM 137 mmol/L (136-145); TOT PROT 7.5 g/dl (6.4-8.2)
[2017-08-16 11:27] LABS: ALK PHOS 124 U/L (45-117)
[2017-08-16] MEDS ORDERED: SODIUM CHLORIDE 250 ML IV ONE ×2 (11:45→14:00)
[2017-08-16] MEDS ORDERED: ACETAMINOPHEN 325 MG TABLET (FP) PO ONE (13:00)
[2017-08-16] MEDS ORDERED: DEXAMETHASONE INJECTION 20 MG, DIPHENHYDRAMINE 25 MG in SODIUM CHLORIDE 100 ML IVPB ONE (13:00)
[2017-08-16 14:33] VITALS: TEMP 98
[2017-08-16 15:55] VITALS: BP 126/86; PULSE 69
== END 2017-08-16 15:30 | disposition home or self-care (01) ==
LOC: JONCCHEMO 07:33 → J7W 12:01 → JONCCHEMO 15:30
PROVIDERS: ATTEND Internal Medicine Hematology & Oncology
DX: Z51.11 Encounter for antineoplastic chemotherapy (principal); C84.60 Anaplastic large cell lymphoma, ALK-positive, unspecified site; E11.9 Type 2 diabetes mellitus without complications
CPT/HCPCS: 36415; 80053; 80076; 83735; 85025; 96361; 96367; 96375; 96413; J9042

== ENCOUNTER 2017-09-13 07:28 | Day surgery (SDC) | payer OTHER ==
[2017-09-13] MEDS ORDERED: SODIUM CHLORIDE 250 ML IV SCH ×2 (09:00→10:30)
[2017-09-13] MEDS ORDERED: BRENTUXIMAB VEDOTIN IV ONE (10:00)
[2017-09-13] MEDS ORDERED: SODIUM CHLORIDE IV ONE (10:00)
[2017-09-13 11:12] LABS: BASO % 0.8 % (0-2.0); EOS % 1.9 % (0-4.5); HEMATOCRIT 39.9 % (35.4-49); HEMOGLOBIN 13.3 GM/dL (11.7-16.9); LYMPH % 28.3 % (8-40); MCH 28.9 pg (25.7-33.7); MCHC 33.3 g/dl (32.0-35.9); MEAN CELL VOLUME 86.8 fl (80-96); MONO % 9.5 % (3.8-10.2); NEUT % 59.5 % (42.8-82.8); PLATELET COUNT 212 K/MM3 (134-434); WHITE BLOOD COUNT 5.6 K/mm3 (4.0-10.0)
[2017-09-13] MEDS ORDERED: DEXAMETHASONE SOD PHOSPHATE 20 MG/5 ML VIAL IVPB ONE (11:24)
[2017-09-13 11:40] LABS: ALBUMIN 3.8 g/dl (3.4-5.0); ALK PHOS 123 U/L (45-117); ANION GAP 5 (8-16); BILIRUBIN,DIRECT < 0.2 mg/dL (0.0-0.2); BILIRUBIN,TOTAL 0.7 mg/dL (0.2-1.0); BLOOD UREA NITROGEN 18 mg/dL (7-18); CALCIUM 8.8 mg/dL (8.5-10.1); CHLORIDE 102 mmol/L (98-107); CO2 29 mmol/L (21-32); CREATININE 1.1 mg/dL (0.7-1.3); GLUCOSE,RANDOM 192 mg/dL (74-106); MAGNESIUM 1.9 mg/dL (1.8-2.4); POTASSIUM 4.6 mmol/L (3.5-5.1); SGOT/AST 18 U/L (15-37); SGPT/ALT 25 U/L (12-78); SODIUM 136 mmol/L (136-145); TOT PROT 7.4 g/dl (6.4-8.2)
[2017-09-13] MEDS ORDERED: DEXAMETHASONE SOD PHOSPHATE 10 MG/1 ML VIAL ONE (13:31)
[2017-09-13 17:59] VITALS: TEMP 98
[2017-09-13 18:02] VITALS: BP 136/77; PULSE 59
== END 2017-09-13 16:30 | disposition home or self-care (01) ==
LOC: JONCCHEMO 07:28 → J7W 11:52 → JONCCHEMO 16:30
PROVIDERS: ATTEND Internal Medicine Hematology & Oncology
DX: Z51.11 Encounter for antineoplastic chemotherapy (principal); C84.60 Anaplastic large cell lymphoma, ALK-positive, unspecified site; E11.9 Type 2 diabetes mellitus without complications
CPT/HCPCS: 36415; 80053; 80076; 82607; 82728; 82746; 83735; 85025; 96361; 96367; 96375; 96413; J1100; J9042

== ENCOUNTER 2017-11-05 16:47 | Emergency (ER) | payer OTHER ==
[2017-11-05 16:58] VITALS: TEMP 97.9; BMI 23.1
--- NOTE | 2017-11-05 17:10 | PDOC ---
History of Present Illness - General Chief Complaint: Rash Stated Complaint: INJURY History Source: Patient Exam Limitations: No Limitations - History of Present Illness Initial Comments: 11/05/17 17:19 This 56 yr old male who has eczema throughout and has been scratching to the top of his scalp causing it to be painful and edematous over the last few days. The daughter is at the bedside and said he's been under the care of a skin former and using creams for it. The area's have been bx and found to be eczema. They have another appointment on Tuesday with the skin former. PMH: CA lymphoma, eczema Severity: mild Past History - Past Medical History Allergies/Adverse Reactions: Allergies Allergy/AdvReac Type Severity Reaction Status Date / Time No Known Allergies Allergy Verified 11/05/17 16:58 Home Medications: Ambulatory Orders Pantoprazole Sodium [Protonix -] 20 mg PO DAILY 02/08/17 Oxycodone HCl/Acetaminophen [Percocet 5-325 mg Tablet] 1 - 2 tab PO Q6H #20 tablet MDD 4 02/09/17 Metformin HCl [Metformin HCl ER] 500 mg PO DAILY 02/12/17 Ondansetron HCl [Zofran] 4 mg PO BID 02/14/17 Docusate Sodium [Colace -] 100 mg PO BID PRN #14 cap 02/21/17 FENTANYL 50mcg PATCH [DURAGESIC 50mcg PATCH -] 1 each TD Q72H #5 patch.td72 MDD 1 02/21/17 Fentanyl Patch Waste [Duragesic Patch Waste] 1 each TD PRN PRN #1 each 02/21/17 Guaifenesin [Robitussin -] 10 ml PO Q8H PRN #1 bottle 02/21/17 Mirtazapine [Remeron -] 7.5 mg PO HS #7 tablet 02/21/17 Polyethylene Glycol 3350 [Miralax 119 gm Btl -] 17 gm PO DAILY #1 bottle Allopurinol [Zyloprim -] 100 mg PO DAILY 03/02/17 Metoclopramide HCl [Reglan] 10 mg PO BID PRN #5 tablet 03/02/17 Omeprazole 20 mg PO DAILY 03/02/17 Cancer: Yes (NONHODGEKINS LYMPHOMA) COPD: No Diabetes: Yes GI Disorders: Yes (GASTRITIS) - Suicide/Smoking/Psychosocial Hx Smoking History: Never smoked Hx Alcohol Use: No Drug/Substance Use Hx: No Substance Use Type: None Hx Substance Use Treatment: No Review of Systems - Review of Systems Able to Perform ROS?: Yes Comments:: 11/05/17 17:22 General statement: This 56 yr old male with skin erruptions Hematology: neg history of bleeding/blood thinners Skin: Scalp leisions to the skin from ezcema which appears to be further infected from scratching HEENT: Neg symptoms Respiratory: Neg SOB or difficulty in breathing Cardiac: Neg chest pain GI: Neg pain, n/v : Neg problems on voiding MS: Neg for joint pain/stiffness, no edema Neuro: Neg for LOC, weakness, Endocrine: Neg for excess thirst/hunger, cold/heat intolerance, excess sweating Allergies: Neg for allergies *Physical Exam - Vital Signs Last Vital Signs Temp Pulse Resp BP Pulse Ox 97.9 F 93 H 18 129/81 99 11/05/17 16:56 11/05/17 16:56 11/05/17 16:56 11/05/17 16:56 11/05/17 16:56 - Physical Exam Comments: 11/05/17 17:23 General Appearance: This ill appearing 56 yr old male V/S: hemodynamically stable, afebrile Skin: WNL of pt's skin color, no signs of pallor, mottling, cyanosis, + multiple leisons to face, scalp, neck, chest. Had tx with lotrim and other creams per the daughter from the derm. Some appear red and open from scratching , no bleeding, oozing, odor. Head:symmetrical Eyes: EOM's intact, PERRLA Ears: denies pain Nose: patent Throat: lips, teeth, gums, tongue, buccal mucos pink and moist Lungs: Chest symmetry equal. Cap refill <3 seconds. Lung sounds clear Cardiac: PMI at R 4MCL space, pos S1 and S2, regular rate. Abdomen: Soft, round, nontender : Not observed Muscularskeletal: Gait steady, ambulated in to ER, no edema +PMS Neuro: AAOx3, cognitively intact, speech clear and appropriate. Medical Decision Making - Medical Decision Making 11/05/17 17:25 Pt seen and examined with c/o rash that is now becoming worse and painful throughout the scalp and face, neck chest. -examined pt -pt is scheduled for derm appt on tuesday -will treat for infected rash with keflex *DC/Admit/Observation/Transfer Diagnosis at time of Disposition: Eczema of scalp, Skin infection - Discharge Dispostion Disposition: HOME Condition at time of disposition: Stable Admit: No - Referrals Referrals: Bj Torres MD [Primary Care Provider] - - Patient Instructions Printed Discharge Instructions: DI for Wound Infection Additional Instructions: Discharge instructions 1. Please follow up with your primary physician within the next few days and explain that you have been seen here in the Emergency Room for a skin infection. Follow up with your skin former as planned on Tuesday Complete antibiotics as prescribed. Try not to scratch skin Use Dial soap for antibacterial soap Can us aquafor ointment for moisturizer 2. If you experience any worsening of symptoms, please return to the ER 3. Rest 4. Drink plenty of water - Post Discharge Activity
--- NOTE | 2017-11-05 17:12 | PDOC ---
*Physical Exam - Vital Signs Last Vital Signs Temp Pulse Resp BP Pulse Ox 97.9 F 93 H 18 129/81 99 11/05/17 16:56 11/05/17 16:56 11/05/17 16:56 11/05/17 16:56 11/05/17 16:56 Medical Decision Making - Medical Decision Making 11/05/17 17:11 The patient was seen and evaluated in conjunction with DARSHANA Gonzalez under my direct supervision, ancillary studies were reviewed. I independently interviewed and evaluated the patient and I agree with the plan as outlined by DARSHANA Gonzalez *DC/Admit/Observation/Transfer Diagnosis at time of Disposition: Eczema of scalp, Skin infection - Discharge Dispostion Disposition: HOME Condition at time of disposition: Stable - Prescriptions Prescriptions: Cephalexin [Keflex] 500 mg PO TID #21 capsule hydrOXYzine HCL [Atarax -] 25 mg PO QID #28 tablet - Referrals Referrals: Bj Torres MD [Primary Care Provider] - - Patient Instructions Printed Discharge Instructions: DI for Wound Infection Additional Instructions: Discharge instructions 1. Please follow up with your primary physician within the next few days and explain that you have been seen here in the Emergency Room for a skin infection. Follow up with your inspector process as planned on Tuesday Complete antibiotics as prescribed. Try not to scratch skin Use Dial soap for antibacterial soap Can us aquafor ointment for moisturizer 2. If you experience any worsening of symptoms, please return to the ER 3. Rest 4. Drink plenty of water - Post Discharge Activity
[2017-11-05] MEDS ORDERED: hydrOXYzine HCL 25 MG TABLET (FP) PO PRN (17:34)
[2017-11-05 17:48] VITALS: BP 128/92; PULSE 90
== END 2017-11-05 17:51 | disposition home or self-care (01) ==
LOC: JER 16:47
DX: L30.8 Other specified dermatitis (principal); C84.48 Peripheral T-cell lymphoma, not elsewhere classified, lymph nodes of multiple sites
CPT/HCPCS: 99281-25

== ENCOUNTER 2018-01-05 07:31 | Day surgery (SDC) | payer OTHER ==
[2018-01-05] MEDS ORDERED: SODIUM CHLORIDE 1,000 ML IV ONE (10:00)
[2018-01-05 13:13] VITALS: TEMP 97.7
[2018-01-05 16:49] VITALS: BP 110/72; PULSE 65
== END 2018-01-05 13:40 | disposition home or self-care (01) ==
LOC: JONCNONCHE 07:31 → J7W 10:42 → JONCNONCHE 13:40
PROVIDERS: ATTEND Internal Medicine Hematology & Oncology
PROC: 3E0337Z Introduction of Electrolytic and Water Balance Substance into Peripheral Vein, Percutaneous Approach (ICD-10-PCS; principal; 2018-01-05)
DX: C83.38 Diffuse large B-cell lymphoma, lymph nodes of multiple sites (principal); Z76.89 Persons encountering health services in other specified circumstances
CPT/HCPCS: 96360; 96361; J7030

== ENCOUNTER 2019-01-20 10:19 | Emergency (ER) | payer OTHER ==
[2019-01-20 10:29] VITALS: BP 114/80; PULSE 85; TEMP 98.5; BMI 23.0
--- NOTE | 2019-01-20 10:51 | PDOC ---
History of Present Illness - General Chief Complaint: Eye Problem Stated Complaint: SWOLLEN/RED RT EYE Time Seen by Provider: 01/20/19 10:43 History Source: Patient Exam Limitations: No Limitations - History of Present Illness Initial Comments: 01/20/19 10:52 Patient is here with sister, with concerns about swelling to right eye. States has suffered from non-Hodgkin's lymphoma has had stem cell transplants and is currently undergoing chemotherapy. And has developed more nodules consistent with his superficial cancerous lesions over the past few weeks. Has some nodules that are growing slightly larger to the right upper canthus of eye that are nonpainful. However yesterday started to have swelling circumferentially to eye. Denies visual changes, denies purulent drainage from eye or conjunctivitis although has some mild redness . No fevers, no other family members ill Timing/Duration: unsure, 24 hours Severity: mild, moderate Past History - Past Medical History Allergies/Adverse Reactions: Allergies Allergy/AdvReac Type Severity Reaction Status Date / Time No Known Allergies Allergy Verified 01/20/19 10:27 Home Medications: Ambulatory Orders Pantoprazole Sodium [Protonix -] 20 mg PO DAILY 02/08/17 Oxycodone HCl/Acetaminophen [Percocet 5-325 mg Tablet] 1 - 2 tab PO Q6H #20 tablet MDD 4 02/09/17 metFORMIN HCL [Metformin ER Osmotic] 500 mg PO DAILY 02/12/17 Ondansetron HCl [Zofran] 4 mg PO BID 02/14/17 Docusate Sodium [Colace -] 100 mg PO BID PRN #14 cap 02/21/17 FENTANYL 50mcg PATCH [DURAGESIC 50mcg PATCH -] 1 each TD Q72H #5 patch.td72 MDD 1 02/21/17 Fentanyl Patch Waste [Duragesic Patch Waste] 1 each TD PRN PRN #1 each 02/21/17 Guaifenesin [Robitussin -] 10 ml PO Q8H PRN #1 bottle 02/21/17 Mirtazapine [Remeron -] 7.5 mg PO HS #7 tablet 02/21/17 Polyethylene Glycol 3350 [Miralax 119 gm Btl -] 17 gm PO DAILY #1 bottle Allopurinol [Zyloprim -] 100 mg PO DAILY 03/02/17 Metoclopramide HCl [Reglan] 10 mg PO BID PRN #5 tablet 03/02/17 Omeprazole 20 mg PO DAILY 03/02/17 Cephalexin [Keflex] 500 mg PO TID #21 capsule 11/05/17 hydrOXYzine HCL [Atarax -] 25 mg PO QID #28 tablet 11/05/17 Cephalexin Monohydrate [Keflex -] 500 mg PO Q8H #21 capsule 01/20/19 Cephalexin [Keflex] 500 mg PO TID #21 capsule 01/20/19 Cancer: Yes (NONHODGEKINS LYMPHOMA) COPD: No Diabetes: Yes GI Disorders: Yes (GASTRITIS) - Suicide/Smoking/Psychosocial Hx Smoking History: Never smoked Hx Alcohol Use: No Drug/Substance Use Hx: No Substance Use Type: None Hx Substance Use Treatment: No Review of Systems - Review of Systems Able to Perform ROS?: Yes Is the patient limited French proficient: Yes Constitutional: Yes: Symptoms Reported, See HPI, Malaise. No: Chills, Fever HEENTM: Yes: Symptoms Reported, See HPI, Eye Pain, Tearing Respiratory: No: Symptoms reported Integumentary: Yes: Symptoms Reported, See HPI, Erythema Neurological: Yes: See HPI. No: Symptoms reported All Other Systems: Reviewed and Negative *Physical Exam - Vital Signs Last Vital Signs Temp Pulse Resp BP Pulse Ox 98.5 F 85 18 114/80 99 01/20/19 10:25 01/20/19 10:25 01/20/19 10:25 01/20/19 10:25 01/20/19 10:25 - Physical Exam General Appearance: Yes: Nourished, Appropriately Dressed, Apparent Distress, Mild Distress HEENT: positive: ANNA, Normal ENT Inspection, TMs Normal, Pharynx Normal, Rhinorrhea, Sinus Tenderness, Other (area orbital edema with palpable firm masses to the right subcutaneous outer right canthus and brow. Are nontender and nonfluctuant. Has another lesion noted to the left brow latter day approximately 1 cm that is nonfluctuant and nontender. 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 Vision is within normal limits, conjunctival is not erythematous although eyes are mildly injected. No drainage) Neck: positive: Supple, Lymphadenopathy (R), Lymphadenopathy (L). negative: Tender Respiratory/Chest: positive: Lungs Clear Gastrointestinal/Abdominal: positive: Soft Extremity: positive: Normal Capillary Refill Integumentary: positive: Normal Color, Dry, Erythema, Swelling Neurologic: positive: visual merchandise manager II-XII NML intact, Fully Oriented, Alert, Normal Mood/ Affect, Normal Response, Motor Strength 11/19 Medical Decision Making - Medical Decision Making 01/20/19 12:39 Paravertebral edema with potential cellulitis. As patient is immunosuppressed will treat with Keflex and has follow-up appointment with oncologist on Tuesday. *DC/Admit/Observation/Transfer Diagnosis at time of Disposition: Orbital cellulitis on right - Discharge Dispostion Disposition: HOME Condition at time of disposition: Stable Decision to Admit order: No - Prescriptions Prescriptions: Cephalexin [Keflex] 500 mg PO TID #21 capsule Cephalexin Monohydrate [Keflex -] 500 mg PO Q8H #21 capsule - Referrals Referrals: Bj Torres MD [Primary Care Provider] - - Patient Instructions Printed Discharge Instructions: DI for Orbital Cellulitis Additional Instructions: Rest, avoid rubbing eyes use cool compresses to help resolve some of the swelling Keflex 500 mg 3 times a day for the next week Use eye lubricating drops as often as needed Follow-up with oncologist Tuesday Return to emergency Department for worsening swelling, fevers, pain or other problems - Post Discharge Activity
== END 2019-01-20 10:59 | disposition home or self-care (01) ==
LOC: JER 10:19 → JERFT 10:19
DX: H05.011 Cellulitis of right orbit (principal); C85.90 Non-Hodgkin lymphoma, unspecified, unspecified site; E11.9 Type 2 diabetes mellitus without complications; Z79.84 Long term (current) use of oral hypoglycemic drugs
CPT/HCPCS: 99281-25

== ENCOUNTER 2019-07-20 13:32 | Day surgery (SDC) | payer OTHER ==
[2019-07-20 12:00] LABS: BASO % 0.5 % (0-2.0); EOS % 2.5 % (0-4.5); HEMATOCRIT 38.4 % (35.4-49); LYMPH % 42.6 % (8-40); MCH 31.9 pg (25.7-33.7); MCHC 33.8 g/dl (32.0-35.9); MEAN CELL VOLUME 94.5 fl (80-96); MEAN PLT VOLUME 7.2 fl (7.5-11.1); MONO % 17.9 % (3.8-10.2); NEUT % 36.5 % (42.8-82.8); PLATELET COUNT 166 K/MM3 (134-434); RBC 4.06 M/mm3 (4.00-5.60); RDW 15.6 % (11.9-15.9)
[2019-07-20 12:36] LABS: ALBUMIN 3.7 g/dl (3.4-5.0); BILIRUBIN,TOTAL 0.5 mg/dL (0.2-1); BLOOD UREA NITROGEN 19.7 mg/dL (7-18); CALCIUM 8.3 mg/dL (8.5-10.1); CREATININE 2.4 mg/dL (0.55-1.3); MAGNESIUM 2.3 mg/dL (1.8-2.4); POTASSIUM 4.1 mmol/L (3.5-5.1); TOT PROT 7.1 g/dl (6.4-8.2); URIC ACID 7.9 mg/dL (2.6-7.2)
[~2019-07-20 13:32] MED LIST: SODIUM CHLORIDE 1,000 ML IV SCH
[2019-07-20 16:44] VITALS: TEMP 97.8
[2019-07-20 17:56] VITALS: BP 106/53; PULSE 46
== END 2019-07-20 19:00 | disposition home or self-care (01) ==
LOC: JONCNONCHE 13:32 → J7W 14:14 → JONCNONCHE 19:00
PROVIDERS: ATTEND Internal Medicine Hematology & Oncology
PROC: 3E0337Z Introduction of Electrolytic and Water Balance Substance into Peripheral Vein, Percutaneous Approach (ICD-10-PCS; principal; 2019-07-20)
DX: Z76.89 Persons encountering health services in other specified circumstances (principal); C84.69 Anaplastic large cell lymphoma, ALK-positive, extranodal and solid organ sites
CPT/HCPCS: 36415; 80053; 83615; 83735; 84550; 85025; 96360; 96361; J7030

== ENCOUNTER 2020-04-25 09:58 | Emergency (ER) | payer OTHER ==
[2020-04-25 10:05] VITALS: TEMP 98.4; BMI 24.5
--- OUTSIDE RECORDS SUMMARY | 2020-04-25 10:37 | XMS ---
:1960 Author Organization [facility] Support Name Relationship Address Phone UE, UNEMPLOYED Unavailable Unavailable Unavailable UE Unavailable Unavailable Unavailable HENOKELBA CRUZ SISTER [address] [facility] [place] [id number] Re-disclosure Warning The records that you are about to access may contain information from federally- assisted alcohol or drug abuse programs. If such information is present, then the following federally mandated warning applies: This information has been disclosed to you from records protected by federal confidentiality rules (42 CFR part 2). The federal rules prohibit you from making any further disclosure of this information unless further disclosure is expressly permitted by the written consent of the person to whom it pertains or as otherwise permitted by 42 CFR part 2. A general authorization for the release of medical or other information is NOT sufficient for this purpose. The Federal rules restrict any use of the information to criminally investigate or prosecute any alcohol or drug abuse patient.The records that you are about to access may contain highly sensitive health information, the redisclosure of which is protected by Article 27-F of the [facility] Public Health law. If you continue you may haveaccess to information: Regarding HIV / AIDS; Provided by facilities licensed or operated by the [facility] Office of Mental Health; or Provided by the [facility] Office for People With Developmental Disabilities. If such information is present, then the following [facility] mandated warning applies: This information has been disclosed to you from confidential records which are protected by state law. State law prohibits you from making any further disclosure of this information without the specific written consent of the person to whom it pertains, or as otherwise permitted by law. Any unauthorized further disclosure in violation of state law may result in a fine or nursing home sentence or both. A general authorization for the release of medical or other information is NOT sufficient authorization for further disclosure. Insurance Providers Payer name Policy type Policy ID Covered Covered republican's Policy P angle / Coverage republican ID relationship to [employer] type [employer] ESSENTIAL [id number] SP [id number] PLAN 3 4 MEDICAID [id number]
--- NOTE | 2020-04-25 10:42 | PDOC ---
History of Present Illness - General Chief Complaint: Headache Stated Complaint: HEADACHE Time Seen by Provider: 04/25/20 10:42 History Source: Patient, Family Exam Limitations: No Limitations - History of Present Illness Initial Comments: 04/25/20 12:01 59M with PMH of DM, HTN, and non-hodgkin lymphoma currently on chemo (Crizitinib) p/w headache x2 weeks, that's constant and bilateral forehead. Generally he feels fatigued, and generalized weakness. Last dose of chemo was ye morning, current schedule is qday, but skipped today because he wasn't feeling well. Head MRI done 02/22 demonstrated sinus mucosal swelling, may indicate sinusitis. Denies fever/chills, sinus congestion/rhinorrhea, sore throat, photophobia, numbness/tingling/weakness, or n/v. SH: bone marrow transplant (mar 2018) Meds: In chart Allergies: NKDA Tob/Etoh/Rec drugs: neg x3 PCP: [facility] Hem-onc: Dr. Madeleine MCDONNELL GENERAL/CONSTITUTIONAL: No fever or chills. +generalized weakness HEENT: No change in vision. No sinus congestion. No sore throat. CARDIOVASCULAR: No chest pain or shortness of breath RESPIRATORY: No cough, wheezing, or hemoptysis. GASTROINTESTINAL: No nausea, vomiting, diarrhea or constipation. NEUROLOGIC: +headache; no vertigo, loss of consciousness, or change in st rength/sensation. PE GENERAL: AOx3; no apparent distress HEAD: NC/AT, no tenderness to sinus percussion EYES: PERRLA, EOMI, sclera anicteric, conjunctiva clear ENT: Auricles normal, hearing grossly normal, nares patent, moist mucosa, oropharynx clear without exudates. CARDIO: RRR, normal S1/S2, no murmurs, rubs, or gallops. LUNGS: No distress, speaks full sentences, CTA bilaterally ABDOMEN: Soft, nontender. No guarding, no rebound. No masses NEUROLOGICAL: CNII-XII intact. Normal speech. No focal sensorimotor deficits. Cerebellar testing intact. SKIN: Warm, Dry, normal turgor. No rashes or lesions noted Trell Petty, PGY1 Emergency Medicine Past History - Medical History Allergies/Adverse Reactions: Allergies Allergy/AdvReac Type Severity Reaction Status Date / Time No Known Allergies Allergy Verified 04/26/20 10:03 Home Medications: Ambulatory Orders Acetaminophen [Tylenol] 650 mg PO QID PRN 04/25/20 Glipizide [Glipizide ER] 10 mg PO DAILY 04/25/20 Cancer: Yes (NONHODGEKINS LYMPHOMA) COPD: No Diabetes: Yes GI Disorders: Yes (GASTRITIS) - Psycho-Social/Smoking History Smoking History: Never smoked Have you smoked in the past 12 months: No - Substance Abuse Hx (Audit-C & DAST Scrn) How often the patient has a drink containing alcohol: Never Score: In Men: 4 or > Positive; In Women: 3 or > Positive: 0 Screen Result (Pos requires Nsg. Audit-10AR): Negative In the last yr the pt used illegal drug/Rx for NonMed reason: No Score: Yes response is considered Positive: 0 Screen Result (Positive result requires Nsg. DAST-10): Negative *Physical Exam - Vital Signs Last Vital Signs Temp Pulse Resp BP Pulse Ox 98.4 F 100 H 16 126/91 100 04/25/20 10:01 04/25/20 10:01 04/25/20 10:01 04/25/20 10:01 04/25/20 10:01 ED Treatment Course - LABORATORY CBC & Chemistry Diagram: 04/25/20 11:45 04/25/20 11:45 Medical Decision Making - Medical Decision Making 04/25/20 12:25 59M with non-hodgkin lymphoma currently on chemo (Crizitinib, last dose yesterday AM) p/w headache. Neuro exam intact, exam largely unimpressive. -> low threshold for neutropenic fever -> CBC + CMP, will give metoclopramide, benadryl , and acetaminophen. 04/25/20 12:29 ANC wnl. 04/25/20 12:59 Creatinine 1.9 but at baseline, CMP otherwise wnl. 04/25/20 13:07 Pt reported feeling improved after reglan, benadryl, acetaminophen, and 1L NS. 04/25/20 13:[address] Salvador, she recommended adding on LDH, magnesium, and uric acid, and suggested sending home if MOORE improves or admit if no improvement and see neurology inpatient. -> uric acid, magnesium, and LDH wnl. Pt has neurology appointment scheduled for 05/02. 04/25/20 14:45 Pt feels improved. Stable for discharge to follow up at neurology appointment next week. Discharge - Discharge Information Problems reviewed: Yes Clinical Impression/Diagnosis: Lymphoma Qualifiers: Lymphoma type: non-Hodgkin Non-Hodgkin lymphoma type: B-cell B-cell lymphoma type: diffuse large B-cell Lymphoma site: unspecified region Qualified Code(s): C83.30 - Diffuse large B-cell lymphoma, unspecified site Headache Qualifiers: Headache type: unspecified Headache chronicity pattern: unspecified pattern Intractability: not intractable Qualified Code(s): R51.9 - Headache, unspecified Condition: Improved Disposition: HOME - Admission No - Follow up/Referral Referrals: Glenn Kiser MD [Primary Care Provider] - - Patient Discharge Instructions Patient Printed Discharge Instructions: DI for Headache Additional Instructions: You were seen in the emergency department for headache. You received reglan, benadry, IV tylenol, and IV fluids to help with the headache. Your labs were normal. Please follow up with the Neurologist next week regarding your visit to the emergency department. If you experience profound dizziness/lightheadedness, numbness, tingling, weakness, facial droop, or slurred speech please return to the emergency department or call 911. - Post Discharge Activity
[2020-04-25] MEDS ORDERED: SODIUM CHLORIDE 1,000 ML IV STA (11:00)
[2020-04-25] MEDS ORDERED: METOCLOPRAMIDE HCL INJECTION 10 MG/2 ML VIAL IVPUSH ONE (11:00)
[2020-04-25] MEDS ORDERED: METOCLOPRAMIDE HCL INJECTION 10 MG/2 ML VIAL ONE (11:31)
[2020-04-25 12:02] LABS: BASO % 0.3 % (0-2.0); EOS % 1.8 % (0-4.5); HEMOGLOBIN 13.7 GM/dL (11.7-16.9); LYMPH % 31.3 % (8-40); MCH 34.4 pg (25.7-33.7); MCHC 35.2 g/dl (32.0-35.9); MEAN CELL VOLUME 97.9 fl (80-96); MEAN PLT VOLUME 7.4 fl (7.5-11.1); MONO % 9.7 % (3.8-10.2); NEUT % 56.9 % (42.8-82.8); PLATELET COUNT 149 K/MM3 (134-434); RBC 3.99 M/mm3 (4.00-5.60); RDW 14.1 % (11.9-15.9); WHITE BLOOD COUNT 5.1 K/mm3 (4.0-10.0)
[2020-04-25] MEDS ORDERED: ACETAMINOPHEN 1000 MG/100 ML VIAL (NON FORMULARY) IVPB ONE (12:11)
[2020-04-25] MEDS ORDERED: diphenhydrAMINE HCL 25 MG CAPSULE (FP) PO ONE ×2 (12:12→12:14)
[2020-04-25] MEDS ORDERED: ACETAMINOPHEN INJECTION 100 ML IVPB ONE (12:15)
[2020-04-25 12:31] LABS: ALBUMIN 3.7 g/dl (3.4-5.0); BILIRUBIN,TOTAL 0.5 mg/dL (0.2-1); BLOOD UREA NITROGEN 17.2 mg/dL (7-18); CALCIUM 8.4 mg/dL (8.5-10.1); CREATININE 1.9 mg/dL (0.55-1.3); POTASSIUM 4.6 mmol/L (3.5-5.1)
[2020-04-25 12:36] VITALS: PULSE 68
--- NOTE | 2020-04-25 13:06 | PDOC ---
Attending Attestation - Resident Resident Name: Trell Petty - ED Attending Attestation I have performed the following: I have examined & evaluated the patient, The case was reviewed & discussed with the resident, I agree w/resident's findings & plan - HPI HPI: 04/25/20 13:02 59-year-old male with history of non-Hodgkin's lymphoma status post chemotherapy, stem cell transplant, and now daily oral maintenance chemotherapy presents with ongoing headache. Patient has no history of headaches, reported complaint of headache in February on a visit with Dr. Madden, MRI was done at that time noting no lesions or acute abnormalities, slight vascular malformation and note of sinusitis. Patient taking Tylenol as needed with only brief relief since then, presents today for evaluation in the setting of ongoing and slightly worsening headaches. Described as frontal, constant, no associated photophobia/phonophobia/fever/chills/focal deficits/neck stiffness. No falls or head injury. - Physicial Exam PE: 04/25/20 13:03 Speaking full sentences No focal sinus tenderness, neck is supple, pupils are equal round reactive to light, extraocular movements are intact Neurological exam is nonfocal - Medical Decision Making 04/25/20 13:04 59-year-old male with history of non-Hodgkin's lymphoma treated in the past with stem cell transplant, facial radiation, and now maintenance oral chemotherapy presents with chronic headache for about 2 months, no other red flags on history or physical exam. Imaging with MRI performed at onset of headaches showed no intracranial abnormality, possible sinusitis. Question ongoing acute on chronic sinusitis versus possible radiation side effect versus possible medication side effect Labs are within normal limits, not neutropenic, baseline renal insufficiency Received IV fluids, Tylenol, Reglan, Benadryl with some relief of headache Has appointment scheduled with neurology on 05/02 will discuss next steps with Dr. Salvador Heart Score/ECG Review #1 ECG reviewed & interpreted by me at: 13:59 General ECG Interpretation: Sinus Rhythm, Normal Rate (64), Normal Intervals (qtc 400), No acute ischemic changes Discharge - Discharge Information Problems reviewed: Yes Clinical Impression/Diagnosis: Lymphoma Qualifiers: Lymphoma type: non-Hodgkin Non-Hodgkin lymphoma type: B-cell B-cell lymphoma type: diffuse large B-cell Lymphoma site: unspecified region Qualified Code(s): C83.30 - Diffuse large B-cell lymphoma, unspecified site Headache Qualifiers: Headache type: unspecified Headache chronicity pattern: unspecified pattern Intractability: not intractable Qualified Code(s): R51.9 - Headache, unspecified Condition: Fair - Follow up/Referral Referrals: Glenn Kiser MD [Primary Care Provider] - - Patient Discharge Instructions - Post Discharge Activity
[2020-04-25 13:49] LABS: MAGNESIUM 2.1 mg/dL (1.8-2.4); URIC ACID 4.4 mg/dL (2.6-7.2)
[2020-04-25 15:10] VITALS: BP 131/83
--- NOTE | 2020-04-27 07:07 | EKG ---
Test Reason : Blood Pressure : / mmHG Vent. Rate : 064 BPM Atrial Rate : 064 BPM P-R Int : 170 ms QRS Dur : 092 ms QT Int : 388 ms P-R-T Axes : 047 005 046 degrees QTc Int : 400 ms NORMAL SINUS RHYTHM NORMAL ECG WHEN COMPARED WITH ECG OF 22-JUN-2019 13:35, NO SIGNIFICANT CHANGE WAS FOUND BASELINE ARTIFACT Confirmed by DAVID ONEILL MD ([id number]) on 04/27/2020 7:06:58 AM Referred By: Confirmed By:DAVID ONEILL MD
== END 2020-04-25 15:09 | disposition home or self-care (01) ==
LOC: JER 09:58
PROC: 3E0333Z Introduction of Anti-inflammatory into Peripheral Vein, Percutaneous Approach (ICD-10-PCS; principal; 2020-04-25)
PROC: 3E033GC Introduction of Other Therapeutic Substance into Peripheral Vein, Percutaneous Approach (ICD-10-PCS; 2020-04-25)
PROC: 3E0337Z Introduction of Electrolytic and Water Balance Substance into Peripheral Vein, Percutaneous Approach (ICD-10-PCS; 2020-04-25)
DX: R51.9 Headache, unspecified (principal)
CPT/HCPCS: 36415; 80053; 83615; 83735; 84550; 85025; 93005; 93010; 96361; 96374; 96375; 99284-25; J0131

== ENCOUNTER 2020-04-26 09:49 | Inpatient (IN) | payer OTHER ==
[2020-04-26] MEDS ORDERED: METOCLOPRAMIDE HCL INJECTION 10 MG/2 ML VIAL IVPUSH ONE (11:12)
[2020-04-26] MEDS ORDERED: LACTATED RINGERS SOLUTION 1000 ML INFUS.BAG IV STA (11:13)
[2020-04-26] MEDS ORDERED: METOCLOPRAMIDE HCL INJECTION 10 MG/2 ML VIAL ONE (11:26)
[2020-04-26] MEDS ORDERED: SODIUM CHLORIDE 1,000 ML IV SCH (12:30)
[2020-04-26 14:10] LABS: URINE APPEARANCE CLEAR; URINE BILIRUBIN NEGATIVE (NEGATIVE); URINE COLOR YELLOW; URINE GLUCOSE (UA) NEGATIVE (NEGATIVE); URINE KETONE NEGATIVE (NEGATIVE); URINE LEUK ESTERASE NEGATIVE (NEGATIVE); URINE NITRITE NEGATIVE (NEGATIVE); URINE PROTEIN NEGATIVE (NEGATIVE); URINE UROBILINOGEN 0.2 mg/dL (0.2-1.0)
[2020-04-26] MEDS ORDERED: HEPARIN NA (PORCINE) 5,000 UNITS/ML 1ML VIAL ONE (15:29)
[2020-04-26] MEDS ORDERED: ACETAMINOPHEN INJECTION 100 ML IVPB ONE (15:29)
[2020-04-26] MEDS: ACETAMINOPHEN 1000 MG/100 ML VIAL (NON FORMULARY) IVPB PRN ×2 (15:42→22:02)
[2020-04-26] MEDS: HEPARIN NA (PORCINE) 5,000 UNITS/ML 1ML VIAL SQ SCH ×2 (15:42→21:33)
[2020-04-26] MEDS: INSULIN SLIDING SCALE (NOVOLOG) 1 VIAL SQ SCH ×2 (16:25→21:34)
[2020-04-27] MEDS: ACETAMINOPHEN 1000 MG/100 ML VIAL (NON FORMULARY) IVPB PRN ×2 (03:07→10:37)
[2020-04-27] MEDS: HEPARIN NA (PORCINE) 5,000 UNITS/ML 1ML VIAL SQ SCH ×3 (06:28→22:36)
[2020-04-27] MEDS: INSULIN SLIDING SCALE (NOVOLOG) 1 VIAL SQ SCH ×4 (06:28→22:37)
[2020-04-27 08:13] LABS: MCH 32.9 pg (25.7-33.7); MCHC 34.3 g/dl (32.0-35.9); MEAN CELL VOLUME 95.8 fl (80-96); MEAN PLT VOLUME 7.2 fl (7.5-11.1); PLATELET COUNT 137 K/MM3 (134-434); RBC 3.65 M/mm3 (4.00-5.60); RDW 13.5 % (11.9-15.9); WHITE BLOOD COUNT 4.3 K/mm3 (4.0-10.0)
[2020-04-27 08:33] LABS: ALBUMIN 3.1 g/dl (3.4-5.0); BILIRUBIN,TOTAL 0.9 mg/dL (0.2-1); BLOOD UREA NITROGEN 16.1 mg/dL (7-18); CALCIUM 7.9 mg/dL (8.5-10.1); CREATININE 1.6 mg/dL (0.55-1.3); MAGNESIUM 1.8 mg/dL (1.8-2.4); PHOSPHOROUS 3.2 mg/dL (2.5-4.9); POTASSIUM 3.9 mmol/L (3.5-5.1); TOT PROT 5.7 g/dl (6.4-8.2)
[2020-04-27] MEDS: ONDANSETRON 4 MG/2 ML VIAL IVPUSH PRN ×2 (10:37→15:10)
[2020-04-27] MEDS ORDERED: DEXAMETHASONE SOD PHOSPHATE 10 MG/1 ML VIAL IVPUSH ONE (14:45)
[2020-04-27] MEDS ORDERED: SODIUM CHLORIDE 1,000 ML IV STA (17:05)
[2020-04-27] MEDS: traMADol HCL 50 MG TABLET PO PRN (17:27)
[2020-04-27] MEDS: SODIUM CHLORIDE 1,000 ML IV SCH (19:29)
[2020-04-27] MEDS ORDERED: traMADol HCL 50 MG TABLET PO ONE (19:57)
[2020-04-27] MEDS ORDERED: ACETAMINOPHEN 1000 MG/100 ML VIAL (NON FORMULARY) IVPB ONE (19:58)
[2020-04-28] MEDS: traMADol HCL 50 MG TABLET PO PRN ×2 (05:43→23:20)
[2020-04-28] MEDS: HEPARIN NA (PORCINE) 5,000 UNITS/ML 1ML VIAL SQ SCH ×3 (05:44→22:39)
[2020-04-28] MEDS: INSULIN SLIDING SCALE (NOVOLOG) 1 VIAL SQ SCH ×4 (06:00→22:39)
[2020-04-28] MEDS: ONDANSETRON 4 MG/2 ML VIAL IVPUSH PRN (11:01)
[2020-04-28] MEDS ORDERED: PT OWN MED DRAWER 7, Y5N ONE ×2 (12:19→20:51)
[2020-04-28] MEDS: MINERAL OIL/PETROLAT/WATER TOPICAL CREAM 113 GM JAR TP SCH (12:27)
[2020-04-28] MEDS ORDERED: MUPIROCIN CA 2% TOPICAL CREAM 15 GM TUBE TP SCH (14:00)
[2020-04-28 14:17] VITALS: BMI 23.6
[2020-04-28] MEDS: SODIUM CHLORIDE 1,000 ML IV SCH ×2 (15:00→17:34)
[2020-04-28] MEDS ORDERED: INSULIN (NOVOLOG) ASPART 100 UNITS/ML 10ML VIAL ONE (20:51)
[2020-04-28] MEDS: NORTRIPTYLINE HCL 25 MG CAPSULE PO SCH (22:40)
[2020-04-29] MEDS: HEPARIN NA (PORCINE) 5,000 UNITS/ML 1ML VIAL SQ SCH ×3 (06:04→22:11)
[2020-04-29] MEDS: INSULIN SLIDING SCALE (NOVOLOG) 1 VIAL SQ SCH ×4 (06:04→22:05)
[2020-04-29] MEDS: traMADol HCL 50 MG TABLET PO PRN ×3 (06:57→22:10)
[2020-04-29 08:55] LABS: BASO % 0.1 % (0-2.0); EOS % 0.6 % (0-4.5); HEMATOCRIT 36.5 % (35.4-49); HEMOGLOBIN 12.8 GM/dL (11.7-16.9); LYMPH % 43.4 % (8-40); MCH 34.2 pg (25.7-33.7); MEAN CELL VOLUME 97.7 fl (80-96); MEAN PLT VOLUME 7.7 fl (7.5-11.1); MONO % 7.3 % (3.8-10.2); NEUT % 48.6 % (42.8-82.8); PLATELET COUNT 148 K/MM3 (134-434); RBC 3.74 M/mm3 (4.00-5.60); RDW 13.6 % (11.9-15.9); WHITE BLOOD COUNT 7.3 K/mm3 (4.0-10.0)
[2020-04-29 09:54] LABS: MAGNESIUM 1.6 mg/dL (1.8-2.4)
[2020-04-29] MEDS ORDERED: PT OWN MED DRAWER 7, Y5N ONE ×2 (09:54→20:55)
[2020-04-29 09:55] LABS: ALBUMIN 3.3 g/dl (3.4-5.0); BILIRUBIN,TOTAL 0.7 mg/dL (0.2-1); BLOOD UREA NITROGEN 17.3 mg/dL (7-18); CALCIUM 7.9 mg/dL (8.5-10.1); CREATININE 1.4 mg/dL (0.55-1.3); PHOSPHOROUS 3.2 mg/dL (2.5-4.9); POTASSIUM 3.6 mmol/L (3.5-5.1); TOT PROT 6.2 g/dl (6.4-8.2)
[2020-04-29] MEDS: SODIUM CHLORIDE 1,000 ML IV SCH ×2 (09:58→17:49)
[2020-04-29] MEDS: MINERAL OIL/PETROLAT/WATER TOPICAL CREAM 113 GM JAR TP SCH (09:58)
[2020-04-29] MEDS ORDERED: INSULIN (NOVOLOG) ASPART 100 UNITS/ML 10ML VIAL ONE ×2 (11:46→17:47)
[2020-04-29] MEDS: ACETAMINOPHEN 325 MG TABLET (FP) PO PRN ×2 (13:32→20:12)
[2020-04-29] MEDS: MINERAL OIL/PET HY-PHL TOPICAL OINTMENT 454 GM JAR TP SCH (13:33)
[2020-04-29] MEDS: NORTRIPTYLINE HCL 25 MG CAPSULE PO SCH (22:09)
[2020-04-30] MEDS ORDERED: ACETAMINOPHEN 1000 MG/100 ML VIAL (NON FORMULARY) IVPB ONE (00:25)
[2020-04-30] MEDS: traMADol HCL 50 MG TABLET PO PRN ×2 (06:16→12:53)
[2020-04-30] MEDS: INSULIN SLIDING SCALE (NOVOLOG) 1 VIAL SQ SCH ×4 (06:16→21:05)
[2020-04-30] MEDS: HEPARIN NA (PORCINE) 5,000 UNITS/ML 1ML VIAL SQ SCH ×3 (06:16→21:02)
[2020-04-30] MEDS: ACETAMINOPHEN 325 MG TABLET (FP) PO PRN ×3 (06:17→22:12)
[2020-04-30] MEDS ORDERED: INSULIN (LEVEMIR) 100 UNITS/ML UNITS SQ ONE (06:25)
[2020-04-30] MEDS ORDERED: INSULIN (NOVOLOG) ASPART 100 UNITS/ML 10ML VIAL ONE (06:25)
[2020-04-30 07:57] LABS: BASO % 0.3 % (0-2.0); EOS % 3.4 % (0-4.5); HEMATOCRIT 33.1 % (35.4-49); HEMOGLOBIN 11.9 GM/dL (11.7-16.9); MCH 34.8 pg (25.7-33.7); MCHC 35.9 g/dl (32.0-35.9); MEAN CELL VOLUME 97.1 fl (80-96); MEAN PLT VOLUME 7.4 fl (7.5-11.1); MONO % 11.1 % (3.8-10.2); NEUT % 52.2 % (42.8-82.8); PLATELET COUNT 129 K/MM3 (134-434); RBC 3.41 M/mm3 (4.00-5.60); RDW 13.9 % (11.9-15.9); WHITE BLOOD COUNT 4.9 K/mm3 (4.0-10.0)
[2020-04-30 09:02] LABS: ALBUMIN 2.9 g/dl (3.4-5.0); ALK PHOS 59 U/L (45-117); BILIRUBIN,TOTAL 0.6 mg/dL (0.2-1); BLOOD UREA NITROGEN 12.2 mg/dL (7-18); CALCIUM 7.9 mg/dL (8.5-10.1); CO2 28 mmol/L (21-32); CREATININE 1.2 mg/dL (0.55-1.3); GLUCOSE,RANDOM 117 mg/dL (74-106); MAGNESIUM 1.7 mg/dL (1.8-2.4); PHOSPHOROUS 3.6 mg/dL (2.5-4.9); SGOT/AST 14 U/L (15-37); SGPT/ALT 21 U/L (13-61); TOT PROT 5.5 g/dl (6.4-8.2)
[2020-04-30 09:12] LABS: ANION GAP 6 MMOL/L (8-16); CHLORIDE 102 mmol/L (98-107); POTASSIUM 3.9 mmol/L (3.5-5.1); SODIUM 136 mmol/L (136-145)
[2020-04-30] MEDS ORDERED: PT OWN MED DRAWER 7, Y5N ONE ×3 (10:25→21:09)
[2020-04-30] MEDS: MINERAL OIL/PET HY-PHL TOPICAL OINTMENT 454 GM JAR TP SCH (10:29)
[2020-04-30] MEDS: ONDANSETRON 4 MG/2 ML VIAL IVPUSH PRN ×2 (12:36→23:22)
[2020-04-30] MEDS ORDERED: MAGNESIUM 2GM/50ML STERILE WATER IVPB IVPB ONE (14:30)
[2020-04-30] MEDS: MORPHINE SULFATE 2 MG/ML VIAL IVPUSH PRN ×2 (16:02→20:54)
[2020-04-30] MEDS: ATORVASTATIN CA 20 MG TABLET (FP) PO SCH (21:01)
[2020-04-30] MEDS: GABAPENTIN 300 MG CAPSULE PO SCH (21:02)
[2020-04-30] MEDS: SODIUM CHLORIDE 1,000 ML IV SCH (21:07)
[2020-04-30] MEDS: NORTRIPTYLINE HCL 25 MG CAPSULE PO SCH (21:10)
[2020-04-30] MEDS ORDERED: GABAPENTIN 300 MG CAPSULE PO SCH (22:00)
[2020-05-01] MEDS: ONDANSETRON 4 MG/2 ML VIAL IVPUSH PRN ×3 (05:16→21:02)
[2020-05-01] MEDS: MORPHINE SULFATE 2 MG/ML VIAL IVPUSH PRN ×2 (05:16→21:12)
[2020-05-01] MEDS: HEPARIN NA (PORCINE) 5,000 UNITS/ML 1ML VIAL SQ SCH ×3 (06:13→21:02)
[2020-05-01] MEDS: INSULIN SLIDING SCALE (NOVOLOG) 1 VIAL SQ SCH ×4 (06:13→21:13)
[2020-05-01] MEDS: ACETAMINOPHEN 325 MG TABLET (FP) PO PRN (06:13)
[2020-05-01 08:07] LABS: BLOOD UREA NITROGEN 10.8 mg/dL (7-18)
[2020-05-01 08:08] LABS: CALCIUM 8.1 mg/dL (8.5-10.1); PHOSPHOROUS 3.5 mg/dL (2.5-4.9); POTASSIUM 3.9 mmol/L (3.5-5.1)
[2020-05-01 08:15] LABS: BASO % 0.2 % (0-2.0); EOS % 2.5 % (0-4.5); HEMATOCRIT 34.9 % (35.4-49); HEMOGLOBIN 12.4 GM/dL (11.7-16.9); LYMPH % 17.6 % (8-40); MCH 34.4 pg (25.7-33.7); MCHC 35.6 g/dl (32.0-35.9); MEAN CELL VOLUME 96.7 fl (80-96); MEAN PLT VOLUME 7.4 fl (7.5-11.1); MONO % 8.1 % (3.8-10.2); NEUT % 71.6 % (42.8-82.8); PLATELET COUNT 145 K/MM3 (134-434); RBC 3.61 M/mm3 (4.00-5.60); RDW 14.1 % (11.9-15.9); WHITE BLOOD COUNT 5.8 K/mm3 (4.0-10.0)
[2020-05-01] MEDS ORDERED: PT OWN MED DRAWER 7, Y5N ONE ×3 (11:17→15:07)
[2020-05-01] MEDS: GABAPENTIN 300 MG CAPSULE PO SCH ×2 (11:20→21:13)
[2020-05-01] MEDS: ASPIRIN 81 MG CHEWABLE TABLETS PO SCH (11:20)
[2020-05-01] MEDS: valACYclovir HCL 500 MG TABLET (FP) PO SCH (11:20)
[2020-05-01] MEDS: MINERAL OIL/PET HY-PHL TOPICAL OINTMENT 454 GM JAR TP SCH (15:25)
[2020-05-01] MEDS: D5-LR+20 MEQ KCL - 20 MEQ/1,000 ML INFUS.BAG IV SCH (15:27)
[2020-05-01] MEDS: ACETAMINOPHEN/CAFFEINE/BUTALBITAL 1 TAB PO PRN (21:12)
[2020-05-01] MEDS: AMITRIPTYLINE HCL 25 MG TABLET PO SCH (21:13)
[2020-05-01] MEDS: ATORVASTATIN CA 20 MG TABLET (FP) PO SCH (21:13)
[2020-05-02] MEDS: MORPHINE SULFATE 2 MG/ML VIAL IVPUSH PRN (03:15)
[2020-05-02] MEDS: HEPARIN NA (PORCINE) 5,000 UNITS/ML 1ML VIAL SQ SCH ×4 (06:52→22:08)
[2020-05-02] MEDS: ACETAMINOPHEN/CAFFEINE/BUTALBITAL 1 TAB PO PRN ×3 (06:52→22:10)
[2020-05-02] MEDS: INSULIN SLIDING SCALE (NOVOLOG) 1 VIAL SQ SCH ×4 (06:52→22:10)
[2020-05-02 07:39] LABS: BASO % 0.2 % (0-2.0); EOS % 3.1 % (0-4.5); HEMATOCRIT 35.4 % (35.4-49); HEMOGLOBIN 12.4 GM/dL (11.7-16.9); LYMPH % 16.1 % (8-40); MCH 33.3 pg (25.7-33.7); MCHC 35.1 g/dl (32.0-35.9); MEAN PLT VOLUME 7.2 fl (7.5-11.1); NEUT % 72.6 % (42.8-82.8); PLATELET COUNT 154 K/MM3 (134-434); RBC 3.73 M/mm3 (4.00-5.60); RDW 13.8 % (11.9-15.9)
[2020-05-02 08:06] LABS: ALBUMIN 2.9 g/dl (3.4-5.0); BILIRUBIN,TOTAL 0.6 mg/dL (0.2-1); BLOOD UREA NITROGEN 11.5 mg/dL (7-18); CALCIUM 8.2 mg/dL (8.5-10.1); CREATININE 1.1 mg/dL (0.55-1.3); MAGNESIUM 1.7 mg/dL (1.8-2.4); PHOSPHOROUS 3.4 mg/dL (2.5-4.9); POTASSIUM 3.5 mmol/L (3.5-5.1); TOT PROT 5.6 g/dl (6.4-8.2)
[2020-05-02] MEDS ORDERED: MAGNESIUM 2GM/50ML STERILE WATER IVPB IVPB ONE (09:15)
[2020-05-02] MEDS: GABAPENTIN 300 MG CAPSULE PO SCH ×2 (10:21→22:09)
[2020-05-02] MEDS: valACYclovir HCL 500 MG TABLET (FP) PO SCH (10:21)
[2020-05-02] MEDS: MINERAL OIL/PET HY-PHL TOPICAL OINTMENT 454 GM JAR TP SCH (10:22)
[2020-05-02] MEDS ORDERED: MAGNESIUM SULF 50% (8.12 MEQ/2 ML-1 GM VIAL) ONE (11:09)
[2020-05-02] MEDS: ASPIRIN 81 MG CHEWABLE TABLETS PO SCH (11:13)
[2020-05-02] MEDS ORDERED: PT OWN MED DRAWER 7, Y5N ONE ×5 (11:43→21:54)
[2020-05-02] MEDS: ONDANSETRON 4 MG/2 ML VIAL IVPUSH PRN (12:17)
[2020-05-02] MEDS ORDERED: INSULIN (NOVOLOG) ASPART 100 UNITS/ML 10ML VIAL ONE (12:18)
[2020-05-02] MEDS: D5-LR+20 MEQ KCL - 20 MEQ/1,000 ML INFUS.BAG IV SCH ×2 (12:25→15:00)
[2020-05-02] MEDS ORDERED: MORPHINE SULFATE 2 MG/ML VIAL IVPUSH PRN (13:46)
[2020-05-02 16:28] LABS: INR 1.08 (0.83-1.09); PROTHROMBIN TIME (PATIENT) 13.2 SEC (9.7-13.0)
[2020-05-02] MEDS: ATORVASTATIN CA 20 MG TABLET (FP) PO SCH (22:09)
[2020-05-02] MEDS: AMITRIPTYLINE HCL 25 MG TABLET PO SCH (22:09)
[2020-05-03] MEDS: ONDANSETRON 4 MG/2 ML VIAL IVPUSH PRN (01:48)
[2020-05-03] MEDS: HEPARIN NA (PORCINE) 5,000 UNITS/ML 1ML VIAL SQ SCH (06:07)
[2020-05-03] MEDS: INSULIN SLIDING SCALE (NOVOLOG) 1 VIAL SQ SCH ×4 (06:09→21:44)
[2020-05-03] MEDS: ACETAMINOPHEN/CAFFEINE/BUTALBITAL 1 TAB PO PRN ×2 (06:10→21:45)
[2020-05-03 07:11] LABS: HEMATOCRIT 38.1 % (35.4-49); HEMOGLOBIN 13.6 GM/dL (11.7-16.9); MCH 34.6 pg (25.7-33.7); MCHC 35.8 g/dl (32.0-35.9); MEAN CELL VOLUME 96.7 fl (80-96); MEAN PLT VOLUME 7.3 fl (7.5-11.1); PLATELET COUNT 147 K/MM3 (134-434); RBC 3.94 M/mm3 (4.00-5.60); RDW 14.1 % (11.9-15.9)
[2020-05-03 07:31] LABS: POTASSIUM 3.8 mmol/L (3.5-5.1)
[2020-05-03 07:32] LABS: CALCIUM 8.2 mg/dL (8.5-10.1)
[2020-05-03 07:33] LABS: BLOOD UREA NITROGEN 12.1 mg/dL (7-18); MAGNESIUM 1.8 mg/dL (1.8-2.4)
[2020-05-03 07:35] LABS: URIC ACID 2.9 mg/dL (2.6-7.2)
[2020-05-03 07:36] LABS: CREATININE 1.2 mg/dL (0.55-1.3); PHOSPHOROUS 3.3 mg/dL (2.5-4.9)
[2020-05-03] MEDS: GABAPENTIN 300 MG CAPSULE PO SCH (11:00)
[2020-05-03] MEDS: MINERAL OIL/PET HY-PHL TOPICAL OINTMENT 454 GM JAR TP SCH (11:01)
[2020-05-03] MEDS: valACYclovir HCL 500 MG TABLET (FP) PO SCH (11:01)
[2020-05-03] MEDS ORDERED: levETIRAcetam 500 MG TABLET (FP) PO SCH (13:45)
[2020-05-03] MEDS: D5-LR+20 MEQ KCL - 20 MEQ/1,000 ML INFUS.BAG IV SCH (14:43)
[2020-05-03] MEDS ORDERED: ALLOPURINOL 300 MG TABLET (FP) PO ONE (17:32)
[2020-05-03] MEDS ORDERED: SODIUM CHLORIDE 0.45% 1,000 ML IV SCH (17:45)
[2020-05-03] MEDS: SODIUM CHLORIDE 1,000 ML IV SCH (17:51)
[2020-05-03 18:00] LABS: URINE APPEARANCE CLEAR; URINE BILIRUBIN NEGATIVE (NEGATIVE); URINE COLOR YELLOW; URINE GLUCOSE (UA) 2+ (NEGATIVE); URINE KETONE NEGATIVE (NEGATIVE); URINE LEUK ESTERASE NEGATIVE (NEGATIVE); URINE NITRITE NEGATIVE (NEGATIVE); URINE PROTEIN NEGATIVE (NEGATIVE); URINE UROBILINOGEN 0.2 mg/dL (0.2-1.0)
[2020-05-03] MEDS ORDERED: PT OWN MED DRAWER 7, Y5N ONE (21:06)
[2020-05-03] MEDS: AMITRIPTYLINE HCL 25 MG TABLET PO SCH (21:45)
[2020-05-04] MEDS: INSULIN SLIDING SCALE (NOVOLOG) 1 VIAL SQ SCH ×4 (06:00→23:11)
[2020-05-04] MEDS ORDERED: PT OWN MED DRAWER 7, Y5N ONE (08:55)
[2020-05-04] MEDS: MINERAL OIL/PET HY-PHL TOPICAL OINTMENT 454 GM JAR TP SCH (09:24)
[2020-05-04] MEDS: ALLOPURINOL 300 MG TABLET (FP) PO SCH (09:25)
[2020-05-04] MEDS: valACYclovir HCL 500 MG TABLET (FP) PO SCH (09:25)
[2020-05-04 10:27] LABS: MCH 34.1 pg (25.7-33.7); MCHC 35.2 g/dl (32.0-35.9); MEAN CELL VOLUME 96.8 fl (80-96); MEAN PLT VOLUME 7.7 fl (7.5-11.1); PLATELET COUNT 154 K/MM3 (134-434); RBC 3.82 M/mm3 (4.00-5.60); RDW 13.9 % (11.9-15.9)
[2020-05-04 10:33] LABS: ALBUMIN 3.1 g/dl (3.4-5.0); BLOOD UREA NITROGEN 13.6 mg/dL (7-18); CALCIUM 8.5 mg/dL (8.5-10.1); MAGNESIUM 1.6 mg/dL (1.8-2.4)
[2020-05-04 10:36] LABS: CREATININE 1.1 mg/dL (0.55-1.3)
[2020-05-04 10:37] LABS: PHOSPHOROUS 3.3 mg/dL (2.5-4.9)
[2020-05-04 10:38] LABS: BILIRUBIN,TOTAL 0.8 mg/dL (0.2-1); TOT PROT 6.1 g/dl (6.4-8.2)
[2020-05-04 10:40] LABS: POTASSIUM 2.8 mmol/L (3.5-5.1)
[2020-05-04 11:27] LABS: ARTERIAL BLD GAS O2 SATURATION 97.4 mmHg (95-98); ARTERIAL BLOOD GAS BASE EXCESS 8.3 mmol/L (-2-2); ARTERIAL BLOOD GAS PO2 85.4 mmHg (80-100); ARTERIAL BLOOD GAS pH 7.536 (7.350-7.450)
[2020-05-04 11:40] LABS: ALLENS TEST POSITIVE
[2020-05-04] MEDS ORDERED: POTASSIUM CHLORIDE TABS 20 MEQ TABLET.ER (FP) PO ONE ×2 (12:45→14:45)
[2020-05-04 13:51] LABS: CALCIUM 8.4 mg/dL (8.5-10.1)
[2020-05-04 13:52] LABS: MAGNESIUM 1.6 mg/dL (1.8-2.4)
[2020-05-04 13:53] LABS: BLOOD UREA NITROGEN 14.5 mg/dL (7-18); CREATININE 1.1 mg/dL (0.55-1.3); PHOSPHOROUS 3.5 mg/dL (2.5-4.9)
[2020-05-04 13:54] LABS: BILIRUBIN,TOTAL 1.1 mg/dL (0.2-1); TOT PROT 6.1 g/dl (6.4-8.2)
[2020-05-04 14:07] LABS: POTASSIUM 2.9 mmol/L (3.5-5.1)
[2020-05-04] MEDS: NYSTATIN 500,000 UNITS/5 ML SUSPENSION PO SCH ×3 (16:12→23:09)
[2020-05-04] MEDS: SODIUM CHLORIDE 1,000 ML IV SCH ×2 (16:13→23:09)
[2020-05-04 17:31] LABS: POTASSIUM 3.5 mmol/L (3.5-5.1)
[2020-05-04 17:33] LABS: BLOOD UREA NITROGEN 14.9 mg/dL (7-18); CALCIUM 8.7 mg/dL (8.5-10.1)
[2020-05-04 17:37] LABS: CREATININE 1.1 mg/dL (0.55-1.3)
[2020-05-04] MEDS ORDERED: MAGNESIUM SULFATE IN WATER 2 GM/50 ML IVPB IVPB ONE (18:30)
[2020-05-04] MEDS: [UNRECOGNIZED DRUG - OTHER] PO SCH (18:51)
[2020-05-05] MEDS: INSULIN SLIDING SCALE (NOVOLOG) 1 VIAL SQ SCH ×4 (06:30→21:59)
[2020-05-05] MEDS: NYSTATIN 500,000 UNITS/5 ML SUSPENSION PO SCH ×3 (06:30→17:10)
[2020-05-05 08:00] LABS: BASO % 0.2 % (0-2.0); EOS % 4.5 % (0-4.5); HEMATOCRIT 37.7 % (35.4-49); HEMOGLOBIN 13.3 GM/dL (11.7-16.9); LYMPH % 18.1 % (8-40); MCH 33.1 pg (25.7-33.7); MCHC 35.2 g/dl (32.0-35.9); MONO % 11.2 % (3.8-10.2); PLATELET COUNT 163 K/MM3 (134-434); RBC 4.01 M/mm3 (4.00-5.60); RDW 13.7 % (11.9-15.9); WHITE BLOOD COUNT 7.7 K/mm3 (4.0-10.0)
[2020-05-05 08:32] LABS: POTASSIUM 3.3 mmol/L (3.5-5.1)
[2020-05-05 08:33] LABS: CALCIUM 8.6 mg/dL (8.5-10.1)
[2020-05-05 08:37] LABS: BLOOD UREA NITROGEN 17.1 mg/dL (7-18); PHOSPHOROUS 3.8 mg/dL (2.5-4.9)
[2020-05-05] MEDS: ALLOPURINOL 300 MG TABLET (FP) PO SCH (09:34)
[2020-05-05] MEDS: valACYclovir HCL 500 MG TABLET (FP) PO SCH (09:34)
[2020-05-05] MEDS: [UNRECOGNIZED DRUG - OTHER] PO SCH (09:34)
[2020-05-05] MEDS: KCL 10 MEQ IVPB 10 MEQ/100 ML INFUS.BAG IVPB SCH ×3 (09:43→11:00)
[2020-05-05] MEDS: MINERAL OIL/PET HY-PHL TOPICAL OINTMENT 454 GM JAR TP SCH (09:43)
[2020-05-05] MEDS ORDERED: [UNRECOGNIZED DRUG - OTHER] PO SCH (10:00)
[2020-05-05] MEDS ORDERED: POTASSIUM CHLORIDE TABS 10 MEQ TABLET.ER (FP) PO ONE (11:00)
[2020-05-05 15:29] LABS: CSF APPEARANCE HAZY
[2020-05-05 15:30] LABS: CSF WBC 240
[2020-05-05 15:32] LABS: CSF COLOR YELLOW
[2020-05-05 15:57] LABS: BF GLUCOSE (CSF ONLY) 35 mg/dL (40-70)
[2020-05-05] MEDS ORDERED: AMPICILLIN SODIUM 250 MG VIAL IVPUSH SCH (18:30)
[2020-05-05] MEDS ORDERED: INSULIN (NOVOLOG) ASPART 100 UNITS/ML 10ML VIAL ONE (21:08)
[2020-05-05] MEDS ORDERED: CEFTRIAXONE 2 MG in DEXTROSE 5%-WATER - 50 ML IVPB SCH (22:00)
[2020-05-06] MEDS: NYSTATIN 500,000 UNITS/5 ML SUSPENSION PO SCH ×4 (00:50→17:28)
[2020-05-06] MEDS: INSULIN SLIDING SCALE (NOVOLOG) 1 VIAL SQ SCH ×4 (06:26→22:27)
[2020-05-06 07:56] LABS: POTASSIUM 3.5 mmol/L (3.5-5.1)
[2020-05-06 07:58] LABS: BASO % 0.6 % (0-2.0); EOS % 12.2 % (0-4.5); HEMATOCRIT 42.3 % (35.4-49); HEMOGLOBIN 14.8 GM/dL (11.7-16.9); LYMPH % 32.9 % (8-40); MCH 33.4 pg (25.7-33.7); MEAN CELL VOLUME 95.4 fl (80-96); MEAN PLT VOLUME 7.2 fl (7.5-11.1); MONO % 10.3 % (3.8-10.2); PLATELET COUNT 176 K/MM3 (134-434); RBC 4.44 M/mm3 (4.00-5.60); RDW 14.2 % (11.9-15.9); WHITE BLOOD COUNT 8.3 K/mm3 (4.0-10.0)
[2020-05-06 08:10] LABS: BILIRUBIN,DIRECT 0.2 mg/dL (0.0-0.2)
[2020-05-06 08:11] LABS: BILIRUBIN,TOTAL 0.8 mg/dL (0.2-1); TOT PROT 6.2 g/dl (6.4-8.2)
[2020-05-06 08:17] LABS: BLOOD UREA NITROGEN 23.1 mg/dL (7-18)
[2020-05-06 08:19] LABS: CREATININE 1.2 mg/dL (0.55-1.3)
[2020-05-06 08:20] LABS: PHOSPHOROUS 3.7 mg/dL (2.5-4.9)
[2020-05-06 08:21] LABS: BILIRUBIN,TOTAL 0.7 mg/dL (0.2-1); TOT PROT 6.2 g/dl (6.4-8.2)
[2020-05-06] MEDS ORDERED: PT OWN MED DRAWER 7, Y5N ONE (09:51)
[2020-05-06] MEDS: valACYclovir HCL 500 MG TABLET (FP) PO SCH (09:52)
[2020-05-06] MEDS: ALLOPURINOL 300 MG TABLET (FP) PO SCH (09:52)
[2020-05-06] MEDS: MINERAL OIL/PET HY-PHL TOPICAL OINTMENT 454 GM JAR TP SCH (09:53)
[2020-05-06] MEDS: [UNRECOGNIZED DRUG - OTHER] PO SCH (09:53)
[2020-05-06] MEDS: TAMSULOSIN HCL 0.4 MG CAP PO SCH (12:25)
[2020-05-06] MEDS ORDERED: HYDROCORTISONE 0.5% TOPICAL CREAM 30 GM TUBE TP PRN (17:59)
[2020-05-06 21:07] LABS: HEP B CORE AB, TOT Negative (Negative)
[2020-05-07] MEDS: NYSTATIN 500,000 UNITS/5 ML SUSPENSION PO SCH ×4 (00:23→18:12)
[2020-05-07] MEDS: INSULIN SLIDING SCALE (NOVOLOG) 1 VIAL SQ SCH ×4 (06:10→21:28)
[2020-05-07] MEDS: TAMSULOSIN HCL 0.4 MG CAP PO SCH (08:26)
[2020-05-07 08:39] LABS: POTASSIUM 3.5 mmol/L (3.5-5.1)
[2020-05-07 08:42] LABS: BASO % 0.2 % (0-2.0); EOS % 10.3 % (0-4.5); HEMATOCRIT 40.1 % (35.4-49); HEMOGLOBIN 13.8 GM/dL (11.7-16.9); LYMPH % 29.6 % (8-40); MCH 33.4 pg (25.7-33.7); MCHC 34.4 g/dl (32.0-35.9); MEAN CELL VOLUME 97.1 fl (80-96); MEAN PLT VOLUME 7.5 fl (7.5-11.1); MONO % 9.4 % (3.8-10.2); NEUT % 50.5 % (42.8-82.8); PLATELET COUNT 171 K/MM3 (134-434); RBC 4.13 M/mm3 (4.00-5.60); RDW 14.3 % (11.9-15.9); WHITE BLOOD COUNT 9.7 K/mm3 (4.0-10.0)
[2020-05-07 08:44] LABS: ALBUMIN 2.7 g/dl (3.4-5.0); BLOOD UREA NITROGEN 23.8 mg/dL (7-18); CALCIUM 8.8 mg/dL (8.5-10.1)
[2020-05-07 08:45] LABS: MAGNESIUM 1.9 mg/dL (1.8-2.4); PHOSPHOROUS 5.2 mg/dL (2.5-4.9)
[2020-05-07 08:46] LABS: BILIRUBIN,TOTAL 0.4 mg/dL (0.2-1)
[2020-05-07 08:47] LABS: CREATININE 1.3 mg/dL (0.55-1.3); TOT PROT 5.5 g/dl (6.4-8.2)
[2020-05-07] MEDS: ALLOPURINOL 300 MG TABLET (FP) PO SCH (10:13)
[2020-05-07] MEDS: valACYclovir HCL 500 MG TABLET (FP) PO SCH (10:13)
[2020-05-07] MEDS: [UNRECOGNIZED DRUG - OTHER] PO SCH (10:14)
[2020-05-07] MEDS: MINERAL OIL/PET HY-PHL TOPICAL OINTMENT 454 GM JAR TP SCH (10:20)
[2020-05-07] MEDS ORDERED: TAMSULOSIN HCL 0.4 MG CAP PO SCH (11:00)
[2020-05-07 14:45] LABS: URIC ACID 2.6 mg/dL (2.6-7.2)
[2020-05-07] MEDS ORDERED: AMINO ACIDS 4.25%/D5W 1,000 ML IV SCH (18:00)
[2020-05-07] MEDS ORDERED: INSULIN (NOVOLOG) ASPART 100 UNITS/ML 10ML VIAL ONE (21:25)
[2020-05-08] MEDS: NYSTATIN 500,000 UNITS/5 ML SUSPENSION PO SCH ×5 (01:04→23:47)
[2020-05-08] MEDS: INSULIN SLIDING SCALE (NOVOLOG) 1 VIAL SQ SCH ×4 (06:11→21:22)
[2020-05-08 07:40] LABS: BASO % 0.3 % (0-2.0); EOS % 9.5 % (0-4.5); HEMATOCRIT 37.4 % (35.4-49); HEMOGLOBIN 13.1 GM/dL (11.7-16.9); LYMPH % 25.1 % (8-40); MCH 33.5 pg (25.7-33.7); MCHC 34.9 g/dl (32.0-35.9); MEAN CELL VOLUME 95.9 fl (80-96); MEAN PLT VOLUME 7.2 fl (7.5-11.1); MONO % 4.8 % (3.8-10.2); NEUT % 60.3 % (42.8-82.8); PLATELET COUNT 174 K/MM3 (134-434); RDW 14.4 % (11.9-15.9); WHITE BLOOD COUNT 10.5 K/mm3 (4.0-10.0)
[2020-05-08 07:57] LABS: ALBUMIN 2.7 g/dl (3.4-5.0); BLOOD UREA NITROGEN 19.1 mg/dL (7-18); CALCIUM 8.4 mg/dL (8.5-10.1); MAGNESIUM 1.7 mg/dL (1.8-2.4)
[2020-05-08 08:00] LABS: CREATININE 1.1 mg/dL (0.55-1.3)
[2020-05-08 08:01] LABS: PHOSPHOROUS 3.7 mg/dL (2.5-4.9)
[2020-05-08 08:02] LABS: TOT PROT 5.6 g/dl (6.4-8.2)
[2020-05-08 08:03] LABS: BILIRUBIN,TOTAL 0.4 mg/dL (0.2-1)
[2020-05-08] MEDS: ALLOPURINOL 300 MG TABLET (FP) PO SCH (09:16)
[2020-05-08] MEDS: valACYclovir HCL 500 MG TABLET (FP) PO SCH (09:16)
[2020-05-08] MEDS: [UNRECOGNIZED DRUG - OTHER] PO SCH (09:16)
[2020-05-08] MEDS: TAMSULOSIN HCL 0.4 MG CAP PO SCH (09:16)
[2020-05-08] MEDS: MINERAL OIL/PET HY-PHL TOPICAL OINTMENT 454 GM JAR TP SCH (09:17)
[2020-05-08] MEDS ORDERED: MAGNESIUM SULF 50% (8.12 MEQ/2 ML-1 GM VIAL) IVPB ONE ×2 (09:26→09:43)
[2020-05-08] MEDS: ONDANSETRON 4 MG/2 ML VIAL IVPUSH PRN (11:22)
[2020-05-08] MEDS ORDERED: INSULIN (NOVOLOG) ASPART 100 UNITS/ML 10ML VIAL ONE ×2 (12:04→21:12)
[2020-05-08] MEDS: D5-NS + 20 MEQ KCL - 20 MEQ/1,000 ML INFUS.BAG IV SCH (13:55)
[2020-05-09] MEDS: D5-NS + 20 MEQ KCL - 20 MEQ/1,000 ML INFUS.BAG IV SCH ×2 (02:42→15:09)
[2020-05-09] MEDS: NYSTATIN 500,000 UNITS/5 ML SUSPENSION PO SCH ×4 (06:08→23:17)
[2020-05-09] MEDS: INSULIN SLIDING SCALE (NOVOLOG) 1 VIAL SQ SCH ×4 (06:09→22:49)
[2020-05-09] MEDS ORDERED: INSULIN (LEVEMIR) 100 UNITS/ML UNITS SQ ONE (06:37)
[2020-05-09] MEDS ORDERED: INSULIN (NOVOLOG) ASPART 100 UNITS/ML 10ML VIAL ONE ×2 (07:23→13:33)
[2020-05-09 08:35] LABS: BASO % 0.7 % (0-2.0); EOS % 11.8 % (0-4.5); HEMATOCRIT 35.7 % (35.4-49); HEMOGLOBIN 12.6 GM/dL (11.7-16.9); LYMPH % 21.6 % (8-40); MCH 34.2 pg (25.7-33.7); MCHC 35.3 g/dl (32.0-35.9); MEAN CELL VOLUME 96.8 fl (80-96); MEAN PLT VOLUME 7.2 fl (7.5-11.1); MONO % 4.8 % (3.8-10.2); NEUT % 61.1 % (42.8-82.8); PLATELET COUNT 170 K/MM3 (134-434); RBC 3.69 M/mm3 (4.00-5.60); RDW 14.7 % (11.9-15.9); WHITE BLOOD COUNT 9.5 K/mm3 (4.0-10.0)
[2020-05-09] MEDS: TAMSULOSIN HCL 0.4 MG CAP PO SCH (08:53)
[2020-05-09 08:55] LABS: POTASSIUM 3.9 mmol/L (3.5-5.1)
[2020-05-09 08:59] LABS: BLOOD UREA NITROGEN 13.2 mg/dL (7-18); CALCIUM 8.4 mg/dL (8.5-10.1); MAGNESIUM 1.9 mg/dL (1.8-2.4)
[2020-05-09 09:02] LABS: CREATININE 1.1 mg/dL (0.55-1.3)
[2020-05-09 09:03] LABS: PHOSPHOROUS 2.5 mg/dL (2.5-4.9)
[2020-05-09] MEDS: valACYclovir HCL 500 MG TABLET (FP) PO SCH (10:59)
[2020-05-09] MEDS: ALLOPURINOL 300 MG TABLET (FP) PO SCH (10:59)
[2020-05-09] MEDS: MINERAL OIL/PET HY-PHL TOPICAL OINTMENT 454 GM JAR TP SCH (11:03)
[2020-05-09] MEDS ORDERED: PT OWN MED DRAWER 7, Y5N ONE ×3 (11:11→13:32)
[2020-05-09] MEDS: [UNRECOGNIZED DRUG - OTHER] PO SCH (12:29)
[2020-05-10] MEDS ORDERED: INSULIN (NOVOLOG) ASPART 100 UNITS/ML 10ML VIAL ONE (05:41)
[2020-05-10] MEDS ORDERED: INSULIN (LEVEMIR) 100 UNITS/ML UNITS SQ ONE (05:44)
[2020-05-10] MEDS: D5-NS + 20 MEQ KCL - 20 MEQ/1,000 ML INFUS.BAG IV SCH ×2 (06:10→18:32)
[2020-05-10] MEDS: NYSTATIN 500,000 UNITS/5 ML SUSPENSION PO SCH ×3 (06:10→17:53)
[2020-05-10] MEDS: INSULIN SLIDING SCALE (NOVOLOG) 1 VIAL SQ SCH ×4 (06:12→21:48)
[2020-05-10 07:15] LABS: CALCIUM 8.5 mg/dL (8.5-10.1)
[2020-05-10 07:16] LABS: BLOOD UREA NITROGEN 11.1 mg/dL (7-18); POTASSIUM 4.4 mmol/L (3.5-5.1)
[2020-05-10 07:19] LABS: CREATININE 1.1 mg/dL (0.55-1.3)
[2020-05-10] MEDS: TAMSULOSIN HCL 0.4 MG CAP PO SCH (08:45)
[2020-05-10] MEDS ORDERED: PT OWN MED DRAWER 7, Y5N ONE (09:34)
[2020-05-10] MEDS: valACYclovir HCL 500 MG TABLET (FP) PO SCH (09:42)
[2020-05-10] MEDS: ALLOPURINOL 300 MG TABLET (FP) PO SCH (09:43)
[2020-05-10] MEDS: MINERAL OIL/PET HY-PHL TOPICAL OINTMENT 454 GM JAR TP SCH (09:44)
[2020-05-11] MEDS: NYSTATIN 500,000 UNITS/5 ML SUSPENSION PO SCH ×5 (00:22→23:47)
[2020-05-11] MEDS: INSULIN SLIDING SCALE (NOVOLOG) 1 VIAL SQ SCH ×4 (06:20→21:29)
[2020-05-11 07:29] LABS: BASO % 0.3 % (0-2.0); EOS % 20.8 % (0-4.5); LYMPH % 24.5 % (8-40); MCHC 35.2 g/dl (32.0-35.9); MEAN CELL VOLUME 96.4 fl (80-96); MEAN PLT VOLUME 7.3 fl (7.5-11.1); MONO % 6.8 % (3.8-10.2); NEUT % 47.6 % (42.8-82.8); PLATELET COUNT 190 K/MM3 (134-434); RBC 3.84 M/mm3 (4.00-5.60); RDW 14.4 % (11.9-15.9); WHITE BLOOD COUNT 9.4 K/mm3 (4.0-10.0)
[2020-05-11 07:45] LABS: POTASSIUM 4.7 mmol/L (3.5-5.1)
[2020-05-11 07:54] LABS: CALCIUM 8.8 mg/dL (8.5-10.1); MAGNESIUM 1.8 mg/dL (1.8-2.4)
[2020-05-11 07:58] LABS: CREATININE 1.1 mg/dL (0.55-1.3); PHOSPHOROUS 3.2 mg/dL (2.5-4.9)
[2020-05-11 07:59] LABS: BILIRUBIN,TOTAL 0.4 mg/dL (0.2-1); TOT PROT 6.2 g/dl (6.4-8.2)
[2020-05-11] MEDS: TAMSULOSIN HCL 0.4 MG CAP PO SCH (08:35)
[2020-05-11 09:09] LABS: ANISOCYTOSIS 0; MACROCYTOSIS 0; PLATELET ESTIMATE NORMAL
[2020-05-11] MEDS ORDERED: PT OWN MED DRAWER 7, Y5N ONE (09:22)
[2020-05-11] MEDS: valACYclovir HCL 500 MG TABLET (FP) PO SCH (09:27)
[2020-05-11] MEDS: ALLOPURINOL 300 MG TABLET (FP) PO SCH (09:27)
[2020-05-11] MEDS: MINERAL OIL/PET HY-PHL TOPICAL OINTMENT 454 GM JAR TP SCH (09:27)
[2020-05-11] MEDS ORDERED: INSULIN (NOVOLOG) ASPART 100 UNITS/ML 10ML VIAL ONE ×2 (11:16→17:48)
[2020-05-11] MEDS: D5-NS + 20 MEQ KCL - 20 MEQ/1,000 ML INFUS.BAG IV SCH ×2 (14:02→14:05)
[2020-05-12] MEDS: NYSTATIN 500,000 UNITS/5 ML SUSPENSION PO SCH ×4 (06:08→23:13)
[2020-05-12] MEDS: INSULIN SLIDING SCALE (NOVOLOG) 1 VIAL SQ SCH ×4 (06:09→23:12)
[2020-05-12] MEDS ORDERED: PT OWN MED DRAWER 7, Y5N ONE ×2 (09:20→14:55)
[2020-05-12] MEDS: valACYclovir HCL 500 MG TABLET (FP) PO SCH (09:25)
[2020-05-12] MEDS: ALLOPURINOL 300 MG TABLET (FP) PO SCH (09:25)
[2020-05-12] MEDS: TAMSULOSIN HCL 0.4 MG CAP PO SCH (09:25)
[2020-05-12] MEDS: MINERAL OIL/PET HY-PHL TOPICAL OINTMENT 454 GM JAR TP SCH (09:28)
[2020-05-12] MEDS ORDERED: INSULIN (NOVOLOG) ASPART 100 UNITS/ML 10ML VIAL ONE (11:16)
[2020-05-12] MEDS: D5-NS + 20 MEQ KCL - 20 MEQ/1,000 ML INFUS.BAG IV SCH (12:29)
[2020-05-13] MEDS: INSULIN SLIDING SCALE (NOVOLOG) 1 VIAL SQ SCH ×4 (06:04→23:01)
[2020-05-13] MEDS: NYSTATIN 500,000 UNITS/5 ML SUSPENSION PO SCH ×3 (06:04→17:31)
[2020-05-13] MEDS ORDERED: PT OWN MED DRAWER 7, Y5N ONE ×2 (06:40→18:40)
[2020-05-13 08:56] LABS: POTASSIUM 4.6 mmol/L (3.5-5.1)
[2020-05-13 08:58] LABS: ALBUMIN 2.6 g/dl (3.4-5.0)
[2020-05-13 08:59] LABS: BLOOD UREA NITROGEN 12.3 mg/dL (7-18)
[2020-05-13 09:00] LABS: CALCIUM 8.4 mg/dL (8.5-10.1); URIC ACID 1.6 mg/dL (2.6-7.2)
[2020-05-13 09:02] LABS: CREATININE 1.1 mg/dL (0.55-1.3)
[2020-05-13 09:03] LABS: BILIRUBIN,TOTAL 0.4 mg/dL (0.2-1); TOT PROT 5.6 g/dl (6.4-8.2)
[2020-05-13 09:04] LABS: BASO % 0.1 % (0-2.0); EOS % 26.2 % (0-4.5); HEMATOCRIT 37.1 % (35.4-49); HEMOGLOBIN 13.2 GM/dL (11.7-16.9); LYMPH % 22.6 % (8-40); MCH 34.9 pg (25.7-33.7); MCHC 35.5 g/dl (32.0-35.9); MEAN CELL VOLUME 98.4 fl (80-96); MEAN PLT VOLUME 7.7 fl (7.5-11.1); MONO % 6.6 % (3.8-10.2); NEUT % 44.5 % (42.8-82.8); PLATELET COUNT 180 K/MM3 (134-434); RBC 3.77 M/mm3 (4.00-5.60); RDW 14.5 % (11.9-15.9); WHITE BLOOD COUNT 10.7 K/mm3 (4.0-10.0)
[2020-05-13] MEDS: ENOXAPARIN NA (PORCINE) 40 MG/0.4 ML DISP.SYRIN SQ SCH (09:16)
[2020-05-13] MEDS: ALLOPURINOL 300 MG TABLET (FP) PO SCH (09:17)
[2020-05-13] MEDS: MINERAL OIL/PET HY-PHL TOPICAL OINTMENT 454 GM JAR TP SCH (09:17)
[2020-05-13] MEDS: valACYclovir HCL 500 MG TABLET (FP) PO SCH (09:17)
[2020-05-13] MEDS: TAMSULOSIN HCL 0.4 MG CAP PO SCH (09:17)
[2020-05-13] MEDS ORDERED: INSULIN (NOVOLOG) ASPART 100 UNITS/ML 10ML VIAL ONE (11:10)
[2020-05-13 11:15] LABS: ANISOCYTOSIS 1+; MACROCYTOSIS 1+; PLATELET ESTIMATE NORMAL
[2020-05-13] MEDS: D5-NS + 20 MEQ KCL - 20 MEQ/1,000 ML INFUS.BAG IV SCH ×2 (12:29→14:34)
[2020-05-13] MEDS: POLYETHYLENE GLYCOL 3350 119 GM BTL PO SCH ×2 (15:29→22:30)
[2020-05-14] MEDS: NYSTATIN 500,000 UNITS/5 ML SUSPENSION PO SCH ×2 (00:44→06:48)
[2020-05-14] MEDS: INSULIN SLIDING SCALE (NOVOLOG) 1 VIAL SQ SCH (06:46)
[2020-05-14 08:40] LABS: BASO % 0.2 % (0-2.0); EOS % 22.7 % (0-4.5); HEMATOCRIT 36.1 % (35.4-49); HEMOGLOBIN 12.3 GM/dL (11.7-16.9); LYMPH % 17.8 % (8-40); MCH 33.2 pg (25.7-33.7); MCHC 34.2 g/dl (32.0-35.9); MEAN PLT VOLUME 7.9 fl (7.5-11.1); MONO % 6.8 % (3.8-10.2); NEUT % 52.5 % (42.8-82.8); PLATELET COUNT 185 K/MM3 (134-434); RBC 3.72 M/mm3 (4.00-5.60); RDW 14.6 % (11.9-15.9); WHITE BLOOD COUNT 12.1 K/mm3 (4.0-10.0)
[2020-05-14] MEDS ORDERED: PT OWN MED DRAWER 7, Y5N ONE (08:41)
[2020-05-14] MEDS: valACYclovir HCL 500 MG TABLET (FP) PO SCH (08:48)
[2020-05-14] MEDS: ENOXAPARIN NA (PORCINE) 40 MG/0.4 ML DISP.SYRIN SQ SCH (08:48)
[2020-05-14] MEDS: TAMSULOSIN HCL 0.4 MG CAP PO SCH (08:48)
[2020-05-14] MEDS: POLYETHYLENE GLYCOL 3350 119 GM BTL PO SCH (08:50)
[2020-05-14] MEDS: MINERAL OIL/PET HY-PHL TOPICAL OINTMENT 454 GM JAR TP SCH (08:52)
[2020-05-14 09:06] VITALS: BP 100/70; PULSE 98; TEMP 97.6
[2020-05-14 09:11] LABS: POTASSIUM 4.5 mmol/L (3.5-5.1)
[2020-05-14 09:14] LABS: ALBUMIN 2.7 g/dl (3.4-5.0); CALCIUM 8.5 mg/dL (8.5-10.1)
[2020-05-14 09:15] LABS: BLOOD UREA NITROGEN 15.5 mg/dL (7-18); MAGNESIUM 1.8 mg/dL (1.8-2.4)
[2020-05-14 09:17] LABS: URIC ACID 1.6 mg/dL (2.6-7.2)
[2020-05-14 09:19] LABS: BILIRUBIN,TOTAL 0.4 mg/dL (0.2-1); TOT PROT 5.7 g/dl (6.4-8.2)
[2020-05-14 11:00] LABS: ANISOCYTOSIS 0; MACROCYTOSIS 0; PLATELET ESTIMATE NORMAL
== END 2020-05-14 10:00 | disposition home health service (06) | DRG 50 ==
LOC: JER 09:49 → JERBED 11:43 → J8W 18:33
PROVIDERS: ADMIT Internal Medicine; ATTEND Student in an Organized Health Care Education/Training Program
PROC: 009U3ZX Drainage of Spinal Canal, Percutaneous Approach, Diagnostic (ICD-10-PCS; principal; 2020-05-12)
PROC: B01BZZZ Fluoroscopy of Spinal Cord (ICD-10-PCS; 2020-05-12)
DX: G03.8 Meningitis due to other specified causes (principal); C83.38 Diffuse large B-cell lymphoma, lymph nodes of multiple sites; C85.98 Non-Hodgkin lymphoma, unspecified, lymph nodes of multiple sites; I63.9 Cerebral infarction, unspecified; E11.9 Type 2 diabetes mellitus without complications; N17.9 Acute kidney failure, unspecified; I12.9 Hypertensive chronic kidney disease with stage 1 through stage 4 chronic kidney disease, or unspecified chronic kidney disease; E11.22 Type 2 diabetes mellitus with diabetic chronic kidney disease; N18.30 Chronic kidney disease, stage 3 unspecified; R00.1 Bradycardia, unspecified; G93.6 Cerebral edema; R21 Rash and other nonspecific skin eruption; G44.229 Chronic tension-type headache, not intractable; E87.6 Hypokalemia; E87.1 Hypo-osmolality and hyponatremia; E87.3 Alkalosis; R33.9 Retention of urine, unspecified; E46 Unspecified protein-calorie malnutrition; Z68.23 Body mass index [BMI] 23.0-23.9, adult; R64 Cachexia; G47.00 Insomnia, unspecified; E83.42 Hypomagnesemia; G92 Toxic encephalopathy; T50.995A Adverse effect of other drugs, medicaments and biological substances, initial encounter; Y92.89 Other specified places as the place of occurrence of the external cause
CPT/HCPCS: 36415; 36600; 62272; 70450-TC; 70551-TC; 70552-TC; 71045-TC-FY; 76098-TC-FY; 77002-TC-FY; 80048; 80053; 80061; 80076; 81003; 82436; 82533; 82607; 82803; 82945; 82962; 83090; 83615; 83721; 83735; 83930; 83935; 84100; 84133; 84157; 84300; 84439; 84443; 84550; 84588; 85025; 85027; 85610; 85651; 86140; 86480; 86644; 86663; 86664; 86665; 86704; 86706; 86707; 86708; 86709; 86780; 87040; 87070; 87086; 87102; 87116; 87205; 87206; 87210; 87340; 87556; 87899; 88108; 88305-TC; 93005; 93010; 93306-TC; 93880-TC; 97116-GP; 97162-GP; 99285-25; A9579; C9803; J0131; J1100; J1644; U0003

== ENCOUNTER 2020-09-02 04:58 | Day surgery (SDC) | payer OTHER ==
[2020-08-27 17:11] VITALS: BMI 25.4
[2020-09-02 13:51] VITALS: BP 135/80; PULSE 70; TEMP 97.8
[2020-09-02 15:17] LABS: BF GLUCOSE (CSF ONLY) 98 mg/dL (40-70)
[2020-09-02 15:25] LABS: CSF APPEARANCE CLEAR; CSF COLOR COLORLESS
[2020-09-02 15:26] LABS: CSF WBC 0
== END 2020-09-02 14:01 | disposition home or self-care (01) ==
LOC: JRADIR 04:58
PROVIDERS: ATTEND Internal Medicine Hematology & Oncology
PROC: 009U3ZX Drainage of Spinal Canal, Percutaneous Approach, Diagnostic (ICD-10-PCS; principal; 2020-09-02)
DX: C85.90 Non-Hodgkin lymphoma, unspecified, unspecified site (principal)
CPT/HCPCS: 36415; 62272; 82945; 84157; 87070; 87205

== ENCOUNTER 2021-03-06 05:13 | Day surgery (SDC) | payer OTHER ==
[2021-03-04 10:35] VITALS: BMI 27.1
[2021-03-06 10:57] LABS: INR 0.99 (0.83-1.09)
[2021-03-06 11:22] LABS: BASO % 0.5 % (0-2.0); EOS % 2.8 % (0-4.5); HEMATOCRIT 32.9 % (35.4-49); HEMOGLOBIN 11.5 GM/dL (11.7-16.9); MCH 32.3 pg (25.7-33.7); MEAN CELL VOLUME 92.3 fl (80-96); MONO % 8.6 % (3.8-10.2); NEUT % 33.1 % (42.8-82.8); PLATELET COUNT 140 10^3/uL (134-434); RBC 3.56 M/mm3 (4.00-5.60); RDW 15.9 % (11.9-15.9)
[2021-03-06 13:49] VITALS: BP 133/97; PULSE 77; TEMP 96.8
[2021-03-06 14:59] LABS: BF GLUCOSE (CSF ONLY) 100 mg/dL (40-70)
[2021-03-06 15:13] LABS: CSF APPEARANCE BLOODY; CSF COLOR RED; CSF WBC 5
[2021-03-11 16:08] LABS: ALPHA-2-GLOBULIN,CSF 7.3 % (3.0-12.6); BETA GLOBULIN,CSF 19.4 % (7.3-17.9); M-SPIKE CSF Not Observed % (Not Observed); PRE-ALBUMIN CSF 1.5 % (2.2-7.1)
== END 2021-03-06 14:08 | disposition home or self-care (01) ==
LOC: JRADIR 05:13
PROVIDERS: ATTEND Internal Medicine Hematology & Oncology
PROC: 009U3ZX Drainage of Spinal Canal, Percutaneous Approach, Diagnostic (ICD-10-PCS; principal; 2021-03-06)
DX: R51.9 Headache, unspecified (principal)
CPT/HCPCS: 36415; 62272; 82945; 84157; 84166; 85025; 85610; 87070; 87205; 88108; 88305-TC

== ENCOUNTER 2021-03-20 04:46 | Day surgery (SDC) | payer OTHER ==
[2021-03-19 14:44] VITALS: BMI 23.8
[2021-03-20 13:16] LABS: CSF APPEARANCE CLEAR; CSF COLOR COLORLESS; CSF WBC 1
[2021-03-20 14:17] LABS: BF GLUCOSE (CSF ONLY) 71 mg/dL (40-70)
[2021-03-20 14:31] VITALS: PULSE 57
[2021-03-20 14:38] VITALS: BP 140/83; TEMP 97.9
== END 2021-03-20 14:55 | disposition home or self-care (01) ==
LOC: JRADIR 04:46
PROVIDERS: ATTEND Internal Medicine Hematology & Oncology
PROC: 009U3ZX Drainage of Spinal Canal, Percutaneous Approach, Diagnostic (ICD-10-PCS; principal; 2021-03-20)
DX: R51.9 Headache, unspecified (principal)
CPT/HCPCS: 36415; 62272; 82945; 83615; 84157; 84166; 87070; 87205

== ENCOUNTER 2021-06-26 05:35 | Day surgery (SDC) | payer OTHER ==
[2021-06-25 16:26] VITALS: BMI 25.2
[2021-06-26 16:18] VITALS: BP 128/83; PULSE 69; TEMP 98
[2021-06-30 16:08] LABS: ALPHA-1-GLOBULIN,CSF 3.4 % (1.1-6.6); ALPHA-2-GLOBULIN,CSF 4.3 % (3.0-12.6); GAMMA GLOBULIN,CSF 10.6 % (3.0-13.0); M-SPIKE CSF Not Observed % (Not Observed); PRE-ALBUMIN CSF 1.5 % (2.2-7.1)
== END 2021-06-26 12:40 | disposition home or self-care (01) ==
LOC: JRADIR 05:35
PROVIDERS: ATTEND Internal Medicine Hematology & Oncology
PROC: 009U3ZX Drainage of Spinal Canal, Percutaneous Approach, Diagnostic (ICD-10-PCS; principal; 2021-06-26)
DX: C85.90 Non-Hodgkin lymphoma, unspecified, unspecified site (principal); E11.9 Type 2 diabetes mellitus without complications
CPT/HCPCS: 36415; 62272; 84157; 84166

== ENCOUNTER 2021-07-18 14:04 | Emergency (ER) | payer OTHER ==
[2021-07-18 14:17] VITALS: BP 107/77; PULSE 87; TEMP 98.7; BMI 26.6
[2021-07-18] MEDS ORDERED: DIPHTH,PERTUSS(ACELL),TET 0.5 ML DISP.SYRIN IM ONE ×2 (14:22→14:43)
[2021-07-18] MEDS ORDERED: CEPHALEXIN MONOHYDRATE 500 MG CAPSULE (UD) PO ONE (16:09)
[2021-07-18] MEDS ORDERED: CEPHALEXIN MONOHYDRATE 500 MG CAPSULE (UD) ONE (16:11)
== END 2021-07-18 16:39 | disposition home or self-care (01) ==
LOC: JERFT 14:04
PROC: 0HQGXZZ Repair Left Hand Skin, External Approach (ICD-10-PCS; principal; 2021-07-18)
PROC: 3E0234Z Introduction of Serum, Toxoid and Vaccine into Muscle, Percutaneous Approach (ICD-10-PCS; 2021-07-18)
DX: S61.011A Laceration without foreign body of right thumb without damage to nail, initial encounter (principal); W26.8XXA Contact with other sharp object(s), not elsewhere classified, initial encounter; Y92.094 Garage of other non-institutional residence as the place of occurrence of the external cause
CPT/HCPCS: 73130-TC-RT-FY; 90471; 90715; 99284-25

== ENCOUNTER 2021-07-25 14:24 | Emergency (ER) | payer OTHER ==
[2021-07-25 15:00] VITALS: BP 108/70; PULSE 100; TEMP 98; BMI 27.4
[2021-07-25] MEDS ORDERED: SODIUM CHLORIDE 0.9% 1000 ML INFUS.BAG IV ONE (16:10)
[2021-07-25 16:47] LABS: BASO % 0.6 % (0-2.0); EOS % 1.7 % (0-4.5); HEMATOCRIT 30.8 % (35.4-49); HEMOGLOBIN 10.8 GM/dL (11.7-16.9); LYMPH % 41.9 % (8-40); MCH 31.4 pg (25.7-33.7); MCHC 35.1 g/dl (32.0-35.9); MEAN CELL VOLUME 89.6 fl (80-96); MEAN PLT VOLUME 7.5 fl (7.5-11.1); MONO % 11.6 % (3.8-10.2); NEUT % 44.2 % (42.8-82.8); PLATELET COUNT 134 10^3/uL (134-434); RBC 3.44 M/mm3 (4.00-5.60); RDW 15.5 % (11.9-15.9); WHITE BLOOD COUNT 5.7 K/mm3 (4.0-10.0)
[2021-07-25 17:10] LABS: CHLORIDE 102 mmol/L (98-107); SODIUM 138 mmol/L (136-145)
[2021-07-25 17:12] LABS: ALBUMIN 3.6 g/dl (3.4-5.0); ANION GAP 9 MMOL/L (8-16); BLOOD UREA NITROGEN 29.1 mg/dL (7-18); CALCIUM 8.5 mg/dL (8.5-10.1); CO2 27 mmol/L (21-32); GLUCOSE,RANDOM 288 mg/dL (74-106)
[2021-07-25 17:15] LABS: SGOT/AST 20 U/L (15-37); SGPT/ALT 28 U/L (13-61)
[2021-07-25 17:17] LABS: BILIRUBIN,TOTAL 0.2 mg/dL (0.2-1)
[2021-07-25 17:18] LABS: ALK PHOS 75 U/L (45-117)
[2021-07-25 19:22] LABS: EPI CELLS 1 /uL (0-25.1); HYALINE CASTS 1 /uL (0-3.1); URINE APPEARANCE CLEAR; URINE BACTERIA 0 /uL (0-1359); URINE BILIRUBIN NEGATIVE (NEGATIVE); URINE COLOR YELLOW; URINE GLUCOSE (UA) 3+ (NEGATIVE); URINE KETONE NEGATIVE (NEGATIVE); URINE LEUK ESTERASE NEGATIVE (NEGATIVE); URINE NITRITE NEGATIVE (NEGATIVE); URINE PROTEIN NEGATIVE (NEGATIVE); URINE RBC 3 /uL (0-23.9); URINE UROBILINOGEN 0.2 mg/dL (0.2-1.0); URINE WBC 1 /uL (0-25.8)
== END 2021-07-25 21:18 | disposition left against medical advice (07) ==
LOC: JER 14:24
DX: N17.9 Acute kidney failure, unspecified (principal); R55 Syncope and collapse
CPT/HCPCS: 36415; 70450-TC; 71045-TC-FY; 80053; 81003; 82962; 84484; 85025; 87086; 93005; 93010; 99285-25; C9803-CS; U0003; U0005

== ENCOUNTER 2021-07-30 13:13 | Emergency (ER) | payer OTHER ==
[2021-07-30 13:39] VITALS: BP 160/90; PULSE 87; TEMP 98; BMI 26.2
== END 2021-07-30 14:28 | disposition home or self-care (01) ==
LOC: JERFT 13:13
DX: Z48.02 Encounter for removal of sutures (principal)
CPT/HCPCS: 99281-25

== ENCOUNTER 2021-10-22 04:43 | Day surgery (SDC) | payer OTHER ==
[2021-10-20 16:25] VITALS: BMI 25.2
[2021-10-22 11:58] LABS: CSF APPEARANCE CLEAR (CLEAR); CSF COLOR COLORLESS (COLORLESS); CSF WBC 0 mm3 (0-5)
[2021-10-22 12:00] LABS: BF GLUCOSE (CSF ONLY) 108 mg/dL (40-70)
[2021-10-22 13:04] VITALS: BP 128/79; PULSE 71; TEMP 97.8
== END 2021-10-22 13:13 | disposition home or self-care (01) ==
LOC: JRADIR 04:43
PROVIDERS: ATTEND Internal Medicine Hematology & Oncology
PROC: 009U3ZX Drainage of Spinal Canal, Percutaneous Approach, Diagnostic (ICD-10-PCS; principal; 2021-10-22)
DX: C85.90 Non-Hodgkin lymphoma, unspecified, unspecified site (principal)
CPT/HCPCS: 36415; 62272; 82945; 84157; 87070; 87205; 88108

== ENCOUNTER 2021-11-11 11:35 | Inpatient (IN) | payer OTHER ==
[2021-11-11] MEDS ORDERED: LACTATED RINGERS SOLUTION 1000 ML INFUS.BAG IV ONE ×2 (12:20→13:53)
[2021-11-11 12:47] LABS: BASO % 0.5 % (0-2.0); EOS % 0.3 % (0-4.5); HEMATOCRIT 31.3 % (35.4-49); HEMOGLOBIN 10.8 GM/dL (11.7-16.9); LYMPH % 36.5 % (8-40); MCH 29.5 pg (25.7-33.7); MCHC 34.4 g/dl (32.0-35.9); MEAN CELL VOLUME 85.8 fl (80-96); MEAN PLT VOLUME 7.4 fl (7.5-11.1); MONO % 12.3 % (3.8-10.2); NEUT % 50.4 % (42.8-82.8); PLATELET COUNT 121 10^3/uL (134-434); RBC 3.65 M/mm3 (4.00-5.60); RDW 16.3 % (11.9-15.9); WHITE BLOOD COUNT 4.8 K/mm3 (4.0-10.0)
[2021-11-11 12:52] LABS: INR 1.15 (0.83-1.09); PROTHROMBIN TIME (PATIENT) 13.3 SEC (9.7-13.0)
[2021-11-11 12:54] LABS: ACTIVATED PTT 36.3 SECONDS (25.2-36.5)
[2021-11-11 13:06] LABS: CALCIUM 8.1 mg/dL (8.5-10.1); MAGNESIUM 2.1 mg/dL (1.8-2.4)
[2021-11-11 13:07] LABS: ALBUMIN 3.3 g/dl (3.4-5.0)
[2021-11-11 13:09] LABS: VENOUS BASE EXCESS -0.3 mmol/L (-2-2); VENOUS PCO2 41.4 mmHg (38-52); VENOUS PH 7.393 (7.310-7.410)
[2021-11-11 13:09] LABS: CREATININE 2.2 mg/dL (0.55-1.3)
[2021-11-11 13:10] LABS: BILIRUBIN,TOTAL 0.3 mg/dL (0.2-1); TOT PROT 7.1 g/dl (6.4-8.2)
[2021-11-11 13:19] LABS: LACTIC ACID 2.3 mmol/L (0.4-2.0)
[2021-11-11] MEDS ORDERED: OSELTAMIVIR PHOSPHATE 75 MG CAPSULE PO ONE (13:50)
[2021-11-11] MEDS ORDERED: ACETAMINOPHEN 1000 MG/100 ML BAG IVPB ONE (13:53)
[2021-11-11] MEDS ORDERED: ACETAMINOPHEN INJECTION 100 ML IVPB ONE (14:12)
[2021-11-11] MEDS: INSULIN SLIDING SCALE (NOVOLOG) 1 VIAL SQ SCH ×2 (18:08→22:10)
[2021-11-11] MEDS: LACTATED RINGERS SOLUTION 1,000 ML/1,000 ML INFUS.BAG IV SCH (20:12)
[2021-11-11 21:04] LABS: EPI CELLS 2 /uL (0-25.1); HYALINE CASTS 1 /uL (0-3.1); PH,URINE 5.5 (5.0-8.0); URINE APPEARANCE CLEAR; URINE BACTERIA 1 /uL (0-1359); URINE BILIRUBIN NEGATIVE (NEGATIVE); URINE COLOR YELLOW; URINE GLUCOSE (UA) 1+ (NEGATIVE); URINE KETONE NEGATIVE (NEGATIVE); URINE LEUK ESTERASE NEGATIVE (NEGATIVE); URINE NITRITE NEGATIVE (NEGATIVE); URINE PROTEIN 1+ (NEGATIVE); URINE RBC 38 /uL (0-23.9); URINE UROBILINOGEN 0.2 mg/dL (0.2-1.0); URINE WBC 1 /uL (0-25.8)
[2021-11-11] MEDS ORDERED: HEPARIN NA (PORCINE) 5,000 UNITS/ML 1ML VIAL ONE (22:47)
[2021-11-11] MEDS: OSELTAMIVIR PHOSPHATE 30 MG CAPSULE PO SCH (23:00)
[2021-11-11] MEDS: INSULIN (LEVEMIR) 100 UNITS/ML UNITS SQ SCH (23:00)
[2021-11-11] MEDS: HEPARIN NA (PORCINE) 5,000 UNITS/ML 1ML VIAL SQ SCH (23:00)
[2021-11-11] MEDS: ROSUVASTATIN CA 20 MG TABLET PO SCH (23:00)
[2021-11-12 06:13] LABS: BASO % 0.5 % (0-2.0); EOS % 1.6 % (0-4.5); HEMOGLOBIN 9.6 GM/dL (11.7-16.9); LYMPH % 51.8 % (8-40); MCH 29.5 pg (25.7-33.7); MCHC 34.4 g/dl (32.0-35.9); MEAN CELL VOLUME 85.6 fl (80-96); MEAN PLT VOLUME 7.4 fl (7.5-11.1); MONO % 15.1 % (3.8-10.2); PLATELET COUNT 116 10^3/uL (134-434); RBC 3.27 M/mm3 (4.00-5.60); RDW 16.2 % (11.9-15.9); WHITE BLOOD COUNT 4.2 K/mm3 (4.0-10.0)
[2021-11-12] MEDS: HEPARIN NA (PORCINE) 5,000 UNITS/ML 1ML VIAL SQ SCH ×3 (06:25→22:15)
[2021-11-12] MEDS ORDERED: HEPARIN NA (PORCINE) 5,000 UNITS/ML 1ML VIAL ONE (06:26)
[2021-11-12 07:13] LABS: CALCIUM 8.2 mg/dL (8.5-10.1); MAGNESIUM 1.9 mg/dL (1.8-2.4)
[2021-11-12 07:14] LABS: PHOSPHOROUS 4.2 mg/dL (2.5-4.9)
[2021-11-12 07:15] LABS: BILIRUBIN,TOTAL 0.2 mg/dL (0.2-1); CREATININE 1.5 mg/dL (0.55-1.3); TOT PROT 6.2 g/dl (6.4-8.2)
[2021-11-12] MEDS ORDERED: TAMSULOSIN HCL 0.4 MG CAP ONE (07:42)
[2021-11-12] MEDS ORDERED: LEVOTHYROXINE NA 50 MCG TABLET (FP) ONE (07:42)
[2021-11-12] MEDS: INSULIN SLIDING SCALE (NOVOLOG) 1 VIAL SQ SCH ×4 (07:55→22:23)
[2021-11-12] MEDS: LEVOTHYROXINE NA 100 MCG TABLET (FP) PO SCH (07:55)
[2021-11-12] MEDS: TAMSULOSIN HCL 0.4 MG CAP PO SCH (07:55)
[2021-11-12] MEDS ORDERED: amLODIPine BESYLATE 5 MG TABLET (FP) ONE (09:54)
[2021-11-12] MEDS ORDERED: LORLATINIB 25 MG PO SCH (10:00)
[2021-11-12] MEDS: amLODIPine BESYLATE 5 MG TABLET (FP) PO SCH (10:21)
[2021-11-12] MEDS: INSULIN (LEVEMIR) 100 UNITS/ML UNITS SQ SCH ×2 (10:21→22:15)
[2021-11-12] MEDS: OSELTAMIVIR PHOSPHATE 30 MG CAPSULE PO SCH ×2 (10:21→22:15)
[2021-11-12] MEDS: ROSUVASTATIN CA 20 MG TABLET PO SCH (22:15)
[2021-11-12] MEDS: LACTATED RINGERS SOLUTION 1,000 ML/1,000 ML INFUS.BAG IV SCH (22:16)
[2021-11-13] MEDS: INSULIN SLIDING SCALE (NOVOLOG) 1 VIAL SQ SCH ×2 (06:37→11:23)
[2021-11-13] MEDS: HEPARIN NA (PORCINE) 5,000 UNITS/ML 1ML VIAL SQ SCH ×2 (06:37→14:00)
[2021-11-13] MEDS: LEVOTHYROXINE NA 100 MCG TABLET (FP) PO SCH (06:37)
[2021-11-13] MEDS: TAMSULOSIN HCL 0.4 MG CAP PO SCH (09:02)
[2021-11-13 09:06] LABS: HEMATOCRIT 32.7 % (35.4-49); MCHC 33.6 g/dl (32.0-35.9); MEAN CELL VOLUME 86.4 fl (80-96); MEAN PLT VOLUME 7.5 fl (7.5-11.1); PLATELET COUNT 133 10^3/uL (134-434); RBC 3.79 M/mm3 (4.00-5.60); WHITE BLOOD COUNT 4.6 K/mm3 (4.0-10.0)
[2021-11-13 09:45] LABS: CALCIUM 8.6 mg/dL (8.5-10.1)
[2021-11-13 09:46] LABS: BLOOD UREA NITROGEN 24.3 mg/dL (7-18)
[2021-11-13 09:49] LABS: CREATININE 1.4 mg/dL (0.55-1.3)
[2021-11-13] MEDS ORDERED: OSELTAMIVIR PHOSPHATE 30 MG CAPSULE PO SCH ×2 (09:53→09:54)
[2021-11-13] MEDS: amLODIPine BESYLATE 5 MG TABLET (FP) PO SCH (09:56)
[2021-11-13] MEDS ORDERED: FAMOTIDINE 20 MG TABLET PO SCH (10:00)
[2021-11-13 10:13] LABS: ANISOCYTOSIS 0; MACROCYTOSIS 0
[2021-11-13] MEDS ORDERED: INSULIN (NOVOLOG) ASPART 100 UNITS/ML 10ML VIAL ONE (11:16)
[2021-11-13] MEDS: INSULIN (LEVEMIR) 100 UNITS/ML UNITS SQ SCH (11:23)
[2021-11-13 14:31] VITALS: BP 119/76; PULSE 73; TEMP 98
[2021-11-13 16:26] VITALS: BMI 26.6
== END 2021-11-13 16:50 | disposition home or self-care (01) | DRG 113 ==
LOC: JER 11:35 → JERBED 14:14 → J8W 11-12 12:34
PROVIDERS: ADMIT Internal Medicine; ATTEND Internal Medicine
DX: J09.X2 Influenza due to identified novel influenza A virus with other respiratory manifestations (principal); C85.90 Non-Hodgkin lymphoma, unspecified, unspecified site; N17.9 Acute kidney failure, unspecified; E87.2 Acidosis; I12.9 Hypertensive chronic kidney disease with stage 1 through stage 4 chronic kidney disease, or unspecified chronic kidney disease; E11.22 Type 2 diabetes mellitus with diabetic chronic kidney disease; E03.9 Hypothyroidism, unspecified; D69.6 Thrombocytopenia, unspecified; D64.9 Anemia, unspecified; N18.9 Chronic kidney disease, unspecified; E78.5 Hyperlipidemia, unspecified; E86.0 Dehydration; E11.65 Type 2 diabetes mellitus with hyperglycemia
CPT/HCPCS: 36415; 70450-TC; 71045-TC-FY; 72125-TC; 72170-TC-FY; 80048; 80053; 81003; 82550; 82570; 82803; 82962; 83605; 83615; 83735; 84100; 84300; 84439; 84443; 84484; 85025; 85610; 85730; 86850; 86900; 86901; 87040; 87086; 87804; 93005; 93010; 99285-25; C9803-CS; J1644; U0003; U0005

== ENCOUNTER 2023-05-06 15:57 | Emergency (ER) | payer OTHER ==
[2023-05-06 16:16] VITALS: RESP 18; TEMP 97; BMI 26.1
[2023-05-06 18:30] LABS: BASO % 0.6 % (0-2.0); EOS % 1.6 % (0-4.5); HEMATOCRIT 30.3 % (35.4-49); HEMOGLOBIN 10.1 GM/dL (11.7-16.9); LYMPH % 50.2 % (8-40); MCH 24.9 pg (25.7-33.7); MCHC 33.2 g/dl (32.0-35.9); MEAN CELL VOLUME 74.9 fl (80-96); MEAN PLT VOLUME 7.6 fl (7.5-11.1); MONO % 9.9 % (3.8-10.2); NEUT % 37.7 % (42.8-82.8); PLATELET COUNT 159 10^3/uL (134-434); RBC 4.04 M/mm3 (4.00-5.60); WHITE BLOOD COUNT 6.1 K/mm3 (4.0-10.0)
[2023-05-06] MEDS ORDERED: SODIUM CHLORIDE 0.9% 500 ML INFUS.BAG IV ONE (18:40)
[2023-05-06 18:49] LABS: POTASSIUM 4.7 mmol/L (3.5-5.1)
[2023-05-06 18:51] LABS: CALCIUM 8.3 mg/dL (8.5-10.1)
[2023-05-06 18:52] LABS: ALBUMIN 3.8 g/dl (3.4-5.0); BLOOD UREA NITROGEN 23.5 mg/dL (7-18)
[2023-05-06 18:55] LABS: CREATININE 1.6 mg/dL (0.55-1.3)
[2023-05-06 18:56] LABS: BILIRUBIN,TOTAL 0.2 mg/dL (0.2-1)
[2023-05-06 21:13] LABS: URIC ACID 5.9 mg/dL (2.6-7.2)
[2023-05-06 21:30] VITALS: BP 132/82; PULSE 84
[2023-05-06 21:35] LABS: EPI CELLS 1 /uL (0-25.1); HYALINE CASTS 0 /uL (0-3.1); PH,URINE 6.5 (5.0-8.0); URINE APPEARANCE CLEAR; URINE BACTERIA 0 /uL (0-1359); URINE BILIRUBIN NEGATIVE (NEGATIVE); URINE COLOR YELLOW; URINE GLUCOSE (UA) TRACE (NEGATIVE); URINE KETONE NEGATIVE (NEGATIVE); URINE LEUK ESTERASE NEGATIVE (NEGATIVE); URINE NITRITE NEGATIVE (NEGATIVE); URINE PROTEIN 1+ (NEGATIVE); URINE RBC 32 /uL (0-23.9); URINE UROBILINOGEN 0.2 mg/dL (0.2-1.0); URINE WBC 1 /uL (0-25.8)
== END 2023-05-06 21:30 | disposition home or self-care (01) ==
LOC: JER 15:57
DX: I10 Essential (primary) hypertension (principal); R42 Dizziness and giddiness; Z20.822 Contact with and (suspected) exposure to COVID-19
CPT/HCPCS: 0241U-QW; 36415; 70450-TC; 71045-TC-FY; 80053; 81003; 83735; 84484; 84550; 85025; 87040; 87086; 93005; 93010; 99285-25